=== PATIENT | female | born 1935 | race Caucasian/White ===

== ENCOUNTER 2017-05-24 09:01 | Inpatient (IN) | payer MEDICARE ==
[~2017-05-24] VITALS: Ht 157.5 cm; Wt 65.0 kg
[~2017-05-24 09:01] MED LIST: AMLODIPINE BESYL5 MG PO; ASPIRIN EC81 MG PO; BRIMONIDINE TART5 ML OP; BYSTOLIC10 MG PO; CALCIUM 500+D1 EACH PO; COQ-10100 MG PO; LEVOTHYROXINE50 MCG PO; LOSARTAN POTAS100 MG PO; MECLIZINE HCL25 MG PO; MULTI-VITAMIN1 EACH PO; POTASSIUM CHLO10 ME1 PO; POTASSIUM CHLO20 ME1 PO; TEMAZEPAM15 MG PO; Z.0.AMITRIPTYLINE H5; Z.0.CARTIA XT240 MG PO; Z.0.CRESTOR20 MG PO; Z.0.FOSAMAX70 MG PO
[2017-05-24] MEDS ORDERED: SODIUM CHLORIDE 0.9% 1000ML 1,000 ML IV STA ×2 (09:47→12:11)
[2017-05-24 10:20] LABS: BASOPHILS # (AUTO) 0.1 (0.0-0.1); BASOPHILS % 0.3 % (0.0-1.0); HEMATOCRIT 37.7 % (34.2-44.1); HEMOGLOBIN 12.2 g/dL (12.0-16.0); LYMPHOCYTES % 3.9 % (18.0-39.1); MEAN CORPUSCULAR HEMOGLOBIN 29.6 pg (28-32); MEAN CORPUSCULAR HGB CONC 32.4 g/dL (31-35); MEAN CORPUSCULAR VOLUME 91.5 fL (81-99); MONOCYTES # (AUTO) 2.4 (0.2-0.8); MONOCYTES % 9.2 % (4.4-11.3); NEUTROPHILS # (AUTO) 21.8 (2.1-6.9); NEUTROPHILS % 84.4 % (38.7-80.0); PLATELET COUNT 219 x10e3/uL (140-360); RED BLOOD COUNT 4.12 x10e6/uL (3.6-5.1); RED CELL DISTRIBUTION WIDTH 14.6 % (11.7-14.4)
[2017-05-24 10:21] LABS: BILIRUBIN,URINE NEGATIVE (NEGATIVE); KETONES,URINE NEGATIVE (NEGATIVE); LEUKOCYTE ESTERASE ,URINE NEGATIVE (NEGATIVE); NITRITE,URINE NEGATIVE (NEGATIVE); URINE UROBILINOGEN 0.2 mg/dL (0.2 - 1)
--- NOTE | 2017-05-24 10:24 | Diagnostic Imaging Report ---
PROCEDURE: A single AP view of the chest. COMPARISON: Chest 2 views 02/05/2017. INDICATIONS: URINARY TRACT INFECTION FINDINGS: Lines/tubes: None. Lungs: The lungs are well inflated and clear. There is no evidence of pneumonia or pulmonary edema. Pleura: There is no pleural effusion or pneumothorax. Heart and mediastinum: The heart and the mediastinum are unremarkable. Bones: No acute bony abnormality. Degenerative changes of the thoracic spine. IMPRESSION: No acute radiographic abnormality. Dictated by: Tucker Francis M.D. on 05/24/2017 at 10:31 Electronically approved by: Tucker Francis M.D. on 05/24/2017 at 10:31
[2017-05-24] MEDS ORDERED: SODIUM CHLORIDE 0.9% 1000ML 1,000 ML ONE (10:27)
[2017-05-24 10:39] LABS: ALBUMIN 3.3 g/dL (3.5-5.0); ANION GAP 14.7 mmol/L (8-16); CALCIUM 8.9 mg/dL (8.4-10.2); COLOR,URINE YELLOW (YELLOW); CREATININE, SERUM 2.46 mg/dL (0.57-1.11); POTASSIUM 3.7 mmol/L (3.5-5.1); PROTEIN,URINE DIPSTICK 1+ (NEGATIVE)
[2017-05-24 10:40] LABS: CLARITY,URINE SL CLOUDY (CLEAR)
[2017-05-24 10:46] LABS: BACTERIA,URINE RARE /HPF; EPITHELIAL CELLS,URINE RARE /LPF; RBC,URINE 0-5 /HPF (0-5)
[2017-05-24] MEDS ORDERED: MEROPENEM 1GM 100 ML IV STA (10:56)
[2017-05-24] MEDS ORDERED: ONDANSETRON HCL INJ 2 MG/ML VIAL IV PRN (11:00)
[2017-05-24 11:14] LABS: LYMPHOCYTES % (MANUAL) 2 % (19-48); METAMYELOCYTES % (MANUAL) 13 % (0-0); MONOCYTES % (MANUAL) 21 % (3.4-9.0); NEUTROPHILS % (MANUAL) 58 % (40-74)
[2017-05-24 11:16] LABS: PLATELET ESTIMATE ADEQUATE; PLATELET MORPHOLOGY COMMENT NORMAL; RBC MORPHOLOGY COMMENT NORMAL
[2017-05-24] MEDS ORDERED: AZOPT10 ML OU (13:31)
[2017-05-24] MEDS ORDERED: RIVASTIGMINE1.5 MG PO (13:31)
[2017-05-24] MEDS ORDERED: RANITIDINE HCL300 M1 PO (13:31)
[2017-05-24] MEDS: SODIUM CHLORIDE 0.9% 1000ML 1,000 ML IV SCH ×2 (13:45→20:01)
[2017-05-24 21:15] VITALS: BP 128/66
[2017-05-24] MEDS: LORAZEPAM INJ 2 MG/ML VIAL IV PRN (23:00)
[2017-05-24] MEDS: MEROPENEM 1GRAM 1 GM in SODIUM CHLORIDE 0.9% 100 ML 100 ML IV SCH (23:59)
[2017-05-25] VITALS (7 sets, daily range): BP systolic 104–133; BP diastolic 60–98
--- NOTE | 2017-05-25 01:16 | Pre Op History & Physical ---
CHIEF COMPLAINT: Dysuria and confusion. HISTORY OF PRESENTING ILLNESS: This is Ms. Phoebe Damon with a history of recurrent urinary tract infection, chronic kidney disease, hyperlipidemia, and history of stroke who was in usual state of health until 1 day prior to admission the patient started to have increased confusion and also started to have some fever and was brought into emergency room. Was checked for urine and was found to have urinary tract infection and urosepsis. The patient also had recurrent bouts of diarrhea when she came in. PAST MEDICAL HISTORY: History of recent diagnosis of dementia, history of hypothyroidism, history of hypertension, and history of major depressive disorder. MEDICATIONS: She takes at home are 1. Crestor 40 mg. 2. Levothyroxine 15 mcg. 3. Amitriptyline 50 mg once a day. 4. Ranitidine 300 mg at bedtime. 5. Exelon patch 4.6 mg per 24-hour patch. 6. Bactrim DS mg. 7. Bystolic 20 mg daily. 8. Losartan 100 mg. 9. Amlodipine 5 mg also. SURGICAL HISTORY: History of hysterectomy, bladder suspension and breast biopsy. MEDICAL HISTORY: Hypertension, arthritis, stroke, history of skin cancer, and history also of hyperlipidemia. FAMILY HISTORY: Father unknown, mother with stroke and heart attack. One brother, 5 sisters, all healthy at this time. SOCIAL HISTORY: Lives with her . No ETOH. No IV drug abuse and no smoking history either. REVIEW OF SYSTEMS: Negative for chest pain. No shortness of breath. Positive for diarrhea. No nausea or vomiting. No constipation or rectal bleeding. No hematochezia or hematemesis. Positive for dysuria and urinary symptoms of frequency. No diplopia, no blurry vision. No other focal neurological changes. PHYSICAL EXAMINATION GENERAL: The patient is alert at this time and oriented times 3. Very pleasant. HEENT: Normocephalic and atraumatic. Pupils are reactive to light and accommodation. CVS: S1 and S2 normal. Regular rate and rhythm. ABDOMEN: Nontender and nondistended. EXTREMITIES: Bilateral lower extremities with small patches of erythema surrounding with redness, pain, and tenderness, suggestive of cellulitis. LABS: Of note, lactic acid is 22.6. Her white count is 25.83 and urine was positive for leukocyte esterase and nitrites. ASSESSMENT: Urosepsis. The patient has been started on fluids at 125 mL an hour. Will keep the fluids going. Keep her white count and lactic acid checked. The patient has also been started on Merrem 1 g q.8 h. We will continue with that. Blood cultures and urine cultures have been done and we will restart all of her medications for hypothyroidism and follow hypertension. We will continue monitoring the patient. Further recommendations per clinical course. Job#: [id number] CF
[2017-05-25] MEDS: SODIUM CHLORIDE 0.9% 1000ML 1,000 ML IV SCH ×3 (04:09→21:09)
[2017-05-25] MEDS: MEROPENEM 1GRAM 1 GM in SODIUM CHLORIDE 0.9% 100 ML 100 ML IV SCH ×3 (05:54→21:15)
[2017-05-25] MEDS: LORAZEPAM INJ 2 MG/ML VIAL IV PRN (06:20)
[2017-05-25 07:14] LABS: BASOPHILS # (AUTO) 0.1 (0.0-0.1); BASOPHILS % 0.6 % (0.0-1.0); EOSINOPHILS # (AUTO) 0.2 (0.0-0.4); EOSINOPHILS % 1.6 % (0.0-6.0); HEMATOCRIT 36.4 % (34.2-44.1); HEMOGLOBIN 11.7 g/dL (12.0-16.0); LYMPHOCYTES % 8.1 % (18.0-39.1); MEAN CORPUSCULAR HEMOGLOBIN 29.8 pg (28-32); MEAN CORPUSCULAR HGB CONC 32.1 g/dL (31-35); MEAN CORPUSCULAR VOLUME 92.6 fL (81-99); MONOCYTES # (AUTO) 1.1 (0.2-0.8); MONOCYTES % 9.1 % (4.4-11.3); NEUTROPHILS # (AUTO) 9.8 (2.1-6.9); NEUTROPHILS % 78.5 % (38.7-80.0); PLATELET COUNT 162 x10e3/uL (140-360); RED BLOOD COUNT 3.93 x10e6/uL (3.6-5.1); RED CELL DISTRIBUTION WIDTH 14.7 % (11.7-14.4)
[2017-05-25 07:34] LABS: CALCIUM 8.2 mg/dL (8.4-10.2); CREATININE, SERUM 1.94 mg/dL (0.57-1.11)
--- NOTE | 2017-05-25 09:41 | Diagnostic Imaging Report ---
PROCEDURE:CHEST 2 VIEWS TECHNIQUE:Pressure chest 2 view INDICATION:Cough, colitis and sepsis COMPARISON:None. FINDINGS: Cardiomegaly with central vascular congestion. No pleural effusions. No focal airspace disease. Intact skeleton. Study limited by motion artifact and patient cooperation, particularly on the lateral view. CONCLUSION: Cardiomegaly with central vascular congestion. No definitive evidence of pneumonia. Dictated by: Sukhjinder Pearson M.D. on 05/25/2017 at 9:49 Electronically approved by: Sukhjinder Pearson M.D. on 05/25/2017 at 9:49
[2017-05-25] MEDS ORDERED: PROBIOTIC & AC1 EACH ×2 (15:15→15:16)
[2017-05-25] MEDS ORDERED: BYSTOLIC10 MG PO (15:15)
[2017-05-25] MEDS ORDERED: RIVASTIGMINE TRANSDERMAL 9.5MG/24HOURS PATCH TD SCH (21:00)
[2017-05-25] MEDS: ATORVASTATIN 40 MG TAB PO SCH (21:09)
[2017-05-25] MEDS: LACTOBACILLUS ACIDOPHILUS CAPSULE PO SCH (21:09)
[2017-05-26 00:09] VITALS: BP 127/77
[2017-05-26] MEDS ORDERED: MEROPENEM 1 GM VIAL ONE ×2 (05:20→14:21)
[2017-05-26 05:24] VITALS: BP 121/78
[2017-05-26] MEDS: SODIUM CHLORIDE 0.9% 1000ML 1,000 ML IV SCH ×2 (05:35→15:23)
[2017-05-26] MEDS ORDERED: SODIUM CHLORIDE 0.9% 100 ML 100 ML ONE (05:35)
[2017-05-26] MEDS: LEVOTHYROXINE SODIUM 50 MCG TAB PO SCH (05:36)
[2017-05-26] MEDS: MEROPENEM 1GRAM 1 GM in SODIUM CHLORIDE 0.9% 100 ML 100 ML IV SCH ×2 (05:36→15:23)
[2017-05-26 07:33] LABS: BASOPHILS # (AUTO) 0.1 (0.0-0.1); BASOPHILS % 0.4 % (0.0-1.0); EOSINOPHILS # (AUTO) 0.1 (0.0-0.4); EOSINOPHILS % 0.9 % (0.0-6.0); HEMATOCRIT 34.4 % (34.2-44.1); HEMOGLOBIN 10.8 g/dL (12.0-16.0); LYMPHOCYTES # (AUTO) 1.8 (1.0-3.2); LYMPHOCYTES % 12.7 % (18.0-39.1); MEAN CORPUSCULAR HGB CONC 31.4 g/dL (31-35); MEAN CORPUSCULAR VOLUME 92.2 fL (81-99); MONOCYTES # (AUTO) 1.6 (0.2-0.8); MONOCYTES % 11.3 % (4.4-11.3); NEUTROPHILS # (AUTO) 10.4 (2.1-6.9); NEUTROPHILS % 74.4 % (38.7-80.0); PLATELET COUNT 188 x10e3/uL (140-360); RED BLOOD COUNT 3.73 x10e6/uL (3.6-5.1)
[2017-05-26 08:05] LABS: ANION GAP 12.7 mmol/L (8-16); CALCIUM 7.6 mg/dL (8.4-10.2); CREATININE, SERUM 1.76 mg/dL (0.57-1.11); POTASSIUM 3.7 mmol/L (3.5-5.1)
[2017-05-26 08:06] VITALS: BP 131/94
[2017-05-26] MEDS: LOSARTAN POTASSIUM 100 MG TAB PO SCH (08:51)
[2017-05-26] MEDS: ASPIRIN 81 MG ENTERIC COATED PO SCH (08:51)
[2017-05-26] MEDS: METOPROLOL TARTRATE 25 MG TAB PO SCH ×2 (08:51→16:35)
[2017-05-26] MEDS: SUCRALFATE 1 GM TAB PO SCH ×3 (08:51→16:35)
[2017-05-26] MEDS: FAMOTIDINE 20 MG TAB PO SCH (08:52)
[2017-05-26] MEDS: CALCIUM CARBONATE 500 MG CHEWABLE TABS PO SCH ×2 (08:52→16:35)
[2017-05-26] MEDS: AMLODIPINE BESYLATE 5 MG TAB PO SCH (08:52)
[2017-05-26] MEDS: MULTIVITAMINS/MINERALS TAB PO SCH (08:52)
[2017-05-26] MEDS ORDERED: RIVASTIGMINE TARTRATE 1.5 MG CAP PO SCH (09:00)
[2017-05-26] MEDS ORDERED: NEBIVOLOL 10 MG TAB PO SCH (09:00)
[2017-05-26] MEDS ORDERED: LACTOBACILLUS ACIDOPHILUS CAPSULE PO SCH (09:00)
[2017-05-26] MEDS ORDERED: AMITRIPTYLINE HCL 25 MG TAB PO SCH (09:00)
[2017-05-26 10:57] LABS: BAND NEUTROPHILS % (MANUAL) 12 %; LYMPHOCYTES % (MANUAL) 14 % (19-48); MONOCYTES % (MANUAL) 6 % (3.4-9.0); NEUTROPHILS % (MANUAL) 68 % (40-74)
[2017-05-26 10:59] LABS: PLATELET ESTIMATE ADEQUATE; PLATELET MORPHOLOGY COMMENT NORMAL; RBC MORPHOLOGY COMMENT NORMAL
[2017-05-26 11:00] LABS: ANISOCYTOSIS SLIGHT; POIKILOCYTOSIS SLIGHT
[2017-05-26 12:12] VITALS: BP 159/84
[2017-05-26 16:10] VITALS: BP 127/71
[2017-05-26 20:00] VITALS: BP 159/70
[2017-05-26] MEDS: ATORVASTATIN 40 MG TAB PO SCH (20:05)
[2017-05-26] MEDS: AMITRIPTYLINE HCL 25 MG TAB PO SCH (20:05)
[2017-05-26] MEDS: RIVASTIGMINE TRANSDERMAL 9.5MG/24HOURS PATCH TD SCH (20:06)
[2017-05-26] MEDS: LACTOBACILLUS ACIDOPHILUS CAPSULE PO SCH (20:06)
[2017-05-26] MEDS: NEBIVOLOL 10 MG TAB PO SCH (20:06)
[2017-05-26] MEDS: MEROPENEM 1GRAM 1 GM in WATER STERILE 10ML VIAL 20 ML IV SCH (21:57)
[2017-05-27] VITALS: BP 167/77
[2017-05-27 04:00] VITALS: BP 139/74
[2017-05-27] MEDS: LEVOTHYROXINE SODIUM 50 MCG TAB PO SCH (05:45)
[2017-05-27 08:12] VITALS: BP 170/79
[2017-05-27] MEDS: FAMOTIDINE 20 MG TAB PO SCH (08:18)
[2017-05-27] MEDS: LOSARTAN POTASSIUM 100 MG TAB PO SCH (08:18)
[2017-05-27] MEDS: CALCIUM CARBONATE 500 MG CHEWABLE TABS PO SCH ×2 (08:18→17:22)
[2017-05-27] MEDS: METOPROLOL TARTRATE 25 MG TAB PO SCH ×2 (08:18→17:22)
[2017-05-27] MEDS: SUCRALFATE 1 GM TAB PO SCH ×3 (08:18→17:22)
[2017-05-27] MEDS: AMLODIPINE BESYLATE 5 MG TAB PO SCH (08:18)
[2017-05-27] MEDS: ASPIRIN 81 MG ENTERIC COATED PO SCH (08:18)
[2017-05-27] MEDS: MULTIVITAMINS/MINERALS TAB PO SCH (08:18)
[2017-05-27] MEDS: LACTOBACILLUS ACIDOPHILUS CAPSULE PO SCH ×3 (09:56→20:09)
[2017-05-27 12:03] VITALS: BP 176/73
[2017-05-27] MEDS: MEROPENEM 1GRAM 1 GM in WATER STERILE 10ML VIAL 20 ML IV SCH ×2 (13:34→20:23)
[2017-05-27] MEDS ORDERED: SODIUM CHLORIDE 0.9% 250ML 250 ML ONE (15:46)
[2017-05-27 16:00] VITALS: BP 179/78
[2017-05-27] MEDS ORDERED: MEROPENEM 1 GM VIAL ONE (20:08)
[2017-05-27] MEDS: AMITRIPTYLINE HCL 25 MG TAB PO SCH (20:09)
[2017-05-27] MEDS: RIVASTIGMINE TRANSDERMAL 9.5MG/24HOURS PATCH TD SCH (20:09)
[2017-05-27] MEDS: ATORVASTATIN 40 MG TAB PO SCH (20:09)
[2017-05-27] MEDS: NEBIVOLOL 10 MG TAB PO SCH (20:10)
[2017-05-27 20:32] VITALS: BP 181/94
[2017-05-28 00:45] VITALS: BP 159/71
[2017-05-28] MEDS ORDERED: MEROPENEM 1 GM VIAL ONE (05:23)
[2017-05-28] MEDS: MEROPENEM 1GRAM 1 GM in WATER STERILE 10ML VIAL 20 ML IV SCH ×3 (05:40→21:50)
[2017-05-28] MEDS: LEVOTHYROXINE SODIUM 50 MCG TAB PO SCH (05:40)
[2017-05-28 05:43] VITALS: BP 145/67
[2017-05-28 07:24] LABS: BASOPHILS # (AUTO) 0.1 (0.0-0.1); BASOPHILS % 0.8 % (0.0-1.0); EOSINOPHILS # (AUTO) 0.5 (0.0-0.4); EOSINOPHILS % 8.2 % (0.0-6.0); HEMATOCRIT 32.3 % (34.2-44.1); HEMOGLOBIN 10.7 g/dL (12.0-16.0); LYMPHOCYTES # (AUTO) 1.6 (1.0-3.2); LYMPHOCYTES % 24.9 % (18.0-39.1); MEAN CORPUSCULAR HGB CONC 33.1 g/dL (31-35); MEAN CORPUSCULAR VOLUME 87.5 fL (81-99); MONOCYTES # (AUTO) 0.9 (0.2-0.8); MONOCYTES % 14.1 % (4.4-11.3); NEUTROPHILS # (AUTO) 3.2 (2.1-6.9); NEUTROPHILS % 50.3 % (38.7-80.0); PLATELET COUNT 215 x10e3/uL (140-360); RED BLOOD COUNT 3.69 x10e6/uL (3.6-5.1); RED CELL DISTRIBUTION WIDTH 14.3 % (11.7-14.4)
[2017-05-28 07:40] LABS: ANION GAP 11.6 mmol/L (8-16); CALCIUM 8.8 mg/dL (8.4-10.2); CREATININE, SERUM 1.16 mg/dL (0.57-1.11)
[2017-05-28 07:42] LABS: POTASSIUM 2.6 mmol/L (3.5-5.1)
[2017-05-28 07:53] VITALS: BP 194/88
[2017-05-28] MEDS ORDERED: POTASSIUM CHLORIDE 20 MEQ TAB CR PO STA (08:26)
[2017-05-28] MEDS ORDERED: POTASSIUM CHLORIDE 20MEQ/100ML 200 ML IV ONE ×2 (08:30→12:30)
[2017-05-28] MEDS: SUCRALFATE 1 GM TAB PO SCH ×3 (08:36→16:30)
[2017-05-28] MEDS: ASPIRIN 81 MG ENTERIC COATED PO SCH (09:18)
[2017-05-28] MEDS: CALCIUM CARBONATE 500 MG CHEWABLE TABS PO SCH ×2 (09:19→17:39)
[2017-05-28] MEDS: LOSARTAN POTASSIUM 100 MG TAB PO SCH (09:19)
[2017-05-28] MEDS: METOPROLOL TARTRATE 25 MG TAB PO SCH ×2 (09:19→17:00)
[2017-05-28] MEDS: FAMOTIDINE 20 MG TAB PO SCH (09:19)
[2017-05-28] MEDS: LACTOBACILLUS ACIDOPHILUS CAPSULE PO SCH ×3 (09:19→21:50)
[2017-05-28] MEDS: AMLODIPINE BESYLATE 5 MG TAB PO SCH (09:19)
[2017-05-28] MEDS: MULTIVITAMINS/MINERALS TAB PO SCH (09:19)
[2017-05-28 11:32] LABS: BILIRUBIN,URINE NEGATIVE (NEGATIVE); KETONES,URINE NEGATIVE (NEGATIVE); LEUKOCYTE ESTERASE ,URINE NEGATIVE (NEGATIVE); NITRITE,URINE NEGATIVE (NEGATIVE); URINE UROBILINOGEN 0.2 mg/dL (0.2 - 1)
[2017-05-28 11:40] LABS: CLARITY,URINE SL CLOUDY (CLEAR); COLOR,URINE YELLOW (YELLOW); PROTEIN,URINE DIPSTICK 1+ (NEGATIVE)
[2017-05-28 11:46] LABS: EPITHELIAL CELLS,URINE RARE /LPF; RBC,URINE 0-5 /HPF (0-5)
[2017-05-28 11:48] VITALS: BP 161/74
[2017-05-28] MEDS ORDERED: POTASSIUM CHLORIDE 20 MEQ TAB CR PO SCH (12:30)
[2017-05-28] MEDS ORDERED: SODIUM CHLORIDE 0.9% 250ML 250 ML ONE (12:49)
[2017-05-28 16:29] VITALS: BP 172/73
[2017-05-28 20:00] VITALS: BP 169/77
[2017-05-28] MEDS: AMITRIPTYLINE HCL 25 MG TAB PO SCH (21:50)
[2017-05-28] MEDS: NEBIVOLOL 10 MG TAB PO SCH (21:50)
[2017-05-28] MEDS: RIVASTIGMINE TRANSDERMAL 9.5MG/24HOURS PATCH TD SCH (21:50)
[2017-05-28] MEDS: ATORVASTATIN 40 MG TAB PO SCH (21:50)
[2017-05-29] VITALS: BP 178/83
[2017-05-29 04:00] VITALS: BP 180/82
[2017-05-29] MEDS ORDERED: MEROPENEM 1 GM VIAL ONE (06:19)
[2017-05-29] MEDS: LEVOTHYROXINE SODIUM 50 MCG TAB PO SCH (06:35)
[2017-05-29] MEDS: MEROPENEM 1GRAM 1 GM in WATER STERILE 10ML VIAL 20 ML IV SCH (06:35)
[2017-05-29 07:08] LABS: BASOPHILS # (AUTO) 0.1 (0.0-0.1); BASOPHILS % 0.9 % (0.0-1.0); EOSINOPHILS # (AUTO) 0.4 (0.0-0.4); EOSINOPHILS % 6.2 % (0.0-6.0); HEMATOCRIT 34.4 % (34.2-44.1); HEMOGLOBIN 11.7 g/dL (12.0-16.0); LYMPHOCYTES # (AUTO) 2.1 (1.0-3.2); LYMPHOCYTES % 29.9 % (18.0-39.1); MEAN CORPUSCULAR HEMOGLOBIN 29.3 pg (28-32); MONOCYTES % 13.8 % (4.4-11.3); NEUTROPHILS # (AUTO) 3.3 (2.1-6.9); NEUTROPHILS % 47.2 % (38.7-80.0); PLATELET COUNT 243 x10e3/uL (140-360); RED CELL DISTRIBUTION WIDTH 14.1 % (11.7-14.4)
[2017-05-29] MEDS: SUCRALFATE 1 GM TAB PO SCH (08:10)
[2017-05-29 08:20] VITALS: BP 187/75
[2017-05-29 08:32] LABS: BAND NEUTROPHILS % (MANUAL) 1 %; EOSINOPHILS % (MANUAL) 5 % (0-7); LYMPHOCYTES % (MANUAL) 22 % (19-48); MONOCYTES % (MANUAL) 19 % (3.4-9.0); NEUTROPHILS % (MANUAL) 51 % (40-74)
[2017-05-29 08:34] LABS: ANISOCYTOSIS SLIGHT; PLATELET ESTIMATE ADEQUATE; PLATELET MORPHOLOGY COMMENT FEW LARGE; RBC MORPHOLOGY COMMENT NORMAL
[2017-05-29] MEDS: ASPIRIN 81 MG ENTERIC COATED PO SCH (09:21)
[2017-05-29] MEDS: MULTIVITAMINS/MINERALS TAB PO SCH (09:22)
[2017-05-29] MEDS: LOSARTAN POTASSIUM 100 MG TAB PO SCH (09:22)
[2017-05-29] MEDS: METOPROLOL TARTRATE 25 MG TAB PO SCH (09:22)
[2017-05-29] MEDS: LACTOBACILLUS ACIDOPHILUS CAPSULE PO SCH (09:22)
[2017-05-29] MEDS: AMLODIPINE BESYLATE 5 MG TAB PO SCH (09:22)
[2017-05-29] MEDS: CALCIUM CARBONATE 500 MG CHEWABLE TABS PO SCH (09:22)
[2017-05-29] MEDS: FAMOTIDINE 20 MG TAB PO SCH (09:22)
[2017-05-29] MEDS ORDERED: CARAFATE1 GM/10 ML PO (10:48)
--- NOTE | 2017-07-08 16:11 | Discharge Summary ---
This patient came to the hospital for delirium. She was found to have urosepsis and hypertension that was controlled. The patient was started on antihypertensives and started on Merrem. Blood cultures and urine culture were done. CBC and CMP were done on a regular basis. Cultures were negative, but the patient had received home antibiotics. We continued the patient on Merrem. She was feeling much better. We started her back on her home medication for dementia, which was rivastigmine. The patient's urosepsis resolved. Physical therapy was ordered. She got out of bed. When she was more stable with better cognitive response, the patient was discharged home. FINAL DIAGNOSES 1. Urinary tract infection and sepsis. 2. Delirium. 3. Hypertension. 4. Dementia. For further information, look in the chart. For medicines on discharge, look on the medical reconciliation sheet. TAMIA SERRANO MD Job#: [id number]
== END 2017-05-29 11:35 | disposition home or self-care (01) | DRG 872 ==
LOC: ER 09:01 → ERHOLD 11:41 → MED/SURG3 20:04
PROVIDERS: ADMIT Family Medicine; ATTEND Family Medicine
DX: A41.9 Sepsis, unspecified organism (principal); F03.90 Unspecified dementia, unspecified severity, without behavioral disturbance, psychotic disturbance, mood disturbance, and anxiety; N39.0 Urinary tract infection, site not specified; L03.116 Cellulitis of left lower limb; L03.115 Cellulitis of right lower limb; E03.9 Hypothyroidism, unspecified; F32.9 Major depressive disorder, single episode, unspecified; R53.81 Other malaise; Z86.73 Personal history of transient ischemic attack (TIA), and cerebral infarction without residual deficits; R19.7 Diarrhea, unspecified
CPT/HCPCS: 36415; 71010; 71020; 80048; 80053; 81001; 83605; 85025; 87040; 87045; 87086; 93005; 96360; 96361; 99284; J2060; J2185; J3480; J7030; J7050

== ENCOUNTER 2018-05-31 06:58 | Inpatient (IN) | payer MEDICARE ==
[~2018-05-31] VITALS: Ht 157.5 cm; Wt 65.4 kg
[~2018-05-31 06:58] MED LIST changes: +AZOPT10 ML OU; +CARAFATE1 GM/10 ML PO; +PROBIOTIC & AC1 EACH; +RANITIDINE HCL300 M1 PO; +RIVASTIGMINE1.5 MG PO
--- OUTSIDE RECORDS SUMMARY | 2018-05-31 07:00 | XMS REPORT ---
Author Author [facility] Address Unknown Phone Unavailable Care Team Providers Care Railroad Car Checker Name Role Phone Carol SERRANO Unavailable Unavailable Problems This patient has no known problems. Allergies, Adverse Reactions, Alerts This patient has no known allergies or adverse reactions. Medications This patient has no known medications. Results Test Description Test Time Test Comments Text Results Atomic Results Result Comments CHEST 2 VIEWS [place] [address] Patient Name: BRITTNEY DE PAZ MR #: [id number] : 1935 Age/Sex: 81/F Req #: [id number] Adm Physician: TAMIA SERRANO MD Ordered by: TAMIA SERRANO MD Report #: [id number] Location: [facility]SURG[facility] Room/Bed: [facility] Procedure: [id number] DX/CHEST 2 VIEWS Exam Date: 05/25/17 Exam Time: 0800 REPORT STATUS: Signed PROCEDURE: CHEST 2 VIEWS TECHNIQUE: Pressure chest 2 view INDICATION: Cough, colitis and sepsis COMPARISON: None. FINDINGS: Cardiomegaly with central vascular congestion. No pleural effusions. No focal airspace disease. Intact skeleton. Study limited by motion artifact and patient cooperation, particularly on the lateral view. CONCLUSION: Cardiomegaly with central vascular congestion. No definitive evidence of pneumonia. Dictated by: Maggie Pearson M.D. on 05/25/2017 at 9:49 Electronically approved by: Maggie Pearson M.D. on 05/25/2017 at 9:49 Dictated By: MAGGIE PEARSON MD 0949 Transcribed By: DAYTON on 05/25/17 0949 COPY TO: TAMIA SERRANO MD CHEST SINGLE (PORTABLE) [place] [address] Patient Name: BRITTNEY DE PAZ MR #: [id number] : 1935 Age/Sex: 81/F Req #: [id number] Adm Physician: Ordered by: ISAAC DELA CRUZ MD Report #: [id number] Location: ER Room/Bed: Procedure: [id number] DX/CHEST SINGLE (PORTABLE) Exam Date: 05/24/17 Exam Time: 0950 REPORT STATUS: Signed PROCEDURE: A single AP view of the chest. COMPARISON: Chest 2 views 02/05/2017. INDICATIONS: URINARY TRACT INFECTION FINDINGS: Lines/tubes: None. Lungs: The lungs are well inflated and clear. There is no evidence of pneumonia or pulmonary edema. Pleura: There is no pleural effusion or pneumothorax. Heart and mediastinum: The heart and the mediastinum are unremarkable. Bones: No acute bony abnormality. Degenerative changes of the thoracic spine. IMPRESSION: No acute radiographic abnormality. Dictated by: Corwin Dotson M.D. on 05/24/2017 at 10:31 Electronically approved by: Corwin Dotson M.D. on 05/24/2017 at 10:31 Dictated By: CORWIN DOTSON MD 1031 Transcribed By: DAYTON on 05/24/17 1031 COPY TO: ISAAC DELA CRUZ MD MRI BRAIN WO [facility] [address] [place] [address] Patient Name: BRITTNEY DE PAZ MR #: [id number] : 1935 [facility] 81[id number] Req #: [id number] Adm Physician: Ordered by: TAMIA SERRANO MD Report #: [id number] Location: MRI Room/Bed: Procedure: [id number] MRI/MRI BRAIN WO Exam Date: 03/23/17 Exam Time: 0830 REPORT STATUS: Signed Examination: MRI BRAIN WITHOUT CONTRAST History: Dizziness. Giddiness. Weakness. Lethargy. Comparison studies: Multiple head CTs with the most recent performed February 01, 2017 Technique: Sagittal T2; axial DWI, FLAIR, GRE or SWI, T1, Coronal FLAIR. Intravenous contrast: None Findings: Scalp: No abnormal signal. No masses. Bone marrow: Normal in signal intensity. Brain volume: Mild volume loss. Ventricles: No hydrocephalus. Extra-axial spaces: No abnormalities. Parenchyma: There are patchy and confluent areas of T2/FLAIR hyperintensity in the periventricular and subcortical and pontine white matter, nonspecific. No masses, hemorrhage, or acute cortical based vascular insults. 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 A chronic lacunar infarct is again demonstrated in the right inferolateral thalamus. Suprasellar and sellar region: No abnormalities. Craniocervical junction: No abnormalities. The foramen magnum is patent. No Chiari malformations. Vessels: Normal flow-voids in the arteries and sinuses. Additional findings:At least mild degenerative spinal canal stenosis at C2-C3 and C3-C4 due to disc bulge and ligamentum flavum thickening. IMPRESSION: 1. No new acute intracranial abnormality. No change from recent head CT performed February 01, 2017 when accounting for differences in technique. 2. Unchanged moderate chronic microvascular ischemic change. 3. Unchanged mild volume loss. 4. Unchanged chronic cortical based infarct in the left inferomedial cerebellum and chronic lacunar infarct in the right thalamus. Signed by: Dr. Michelle Jones M.D. on 03/23/2017 12:06 PM Dictated By: MICHELLE FERRELL MD 1206 Transcribed By: DIANNA on 03/23/17 1206 COPY TO: TAMIA SERRANO MD MRA NECK WO [place] [address] Patient Name: BRITTNEY DE PAZ MR #: [id number] : 1935 Age/Sex: 81/F Req #: [id number] Adm Physician: Ordered by: TAMIA SERRANO MD Report #: [id number] Location: MRI Room/Bed: Procedure: [id number] MRI/MRA NECK WO Exam Date: 03/23/17 Exam Time: 0830 REPORT STATUS: Signed EXAMINATION: MR angiogram of the Neck without contrast CLINICAL HISTORY: Dizziness. Giddiness. Weakness. Lethargy. COMPARISON: None available TECHNIQUE: A 2D [id number] TOF angiographic sequences without was performed on the neck . The source images and public utilities sales representative projections of the MIP images through 180 degrees of rotation of the neck were reviewed FINDINGS: If present, stenosis of the carotid bulbs is measured based on NASCET criteria i.e area of maximum stenosis compared to the cervical ICA distal to the bulb. Hypointensity in the bilateral carotid bulbs may be flow related artifact or narrowing from atherosclerotic disease with mild stenoses (less than 50% stenosis). Right Carotid Artery: The common carotid, internal and external carotid arteries at the level of the neck are normal in caliber, and patent, no evidence of stenoses. Left Carotid Artery: The common carotid, internal and external carotid arteries at the level of the neck are normal in caliber, and patent, no evidence of stenoses. Vertebral Arteries: Both are normal in morphology and caliber. Both are codominant. No significant stenosis is seen. IMPRESSION: Mild stenosis of the bilateral carotid bulbs, otherwise no abnormalities. Signed by: Dr. Bronwyn Caballero M.D. on 03/26/2017 11:54 AM Dictated By: BRONWYN CABALLERO MD 1150 Transcribed By: DIANNA on 03/26/17 6153 COPY TO: TAMIA SERRANO MD
--- OUTSIDE RECORDS SUMMARY | 2018-05-31 07:00 | XMS REPORT | Clinical Summary ---
Author Author [facility] Address Unknown Phone Unavailable Care Team Providers Care Dye House Hand Name Role Phone Scooter Slaughter MD PCP Allergies No Known Allergies Medications End Date Status Medication Sig Dispensed Refills Start Date Active amitriptyline (ELAVIL) 50 Take 50 mg by 0 MG tablet mouth every night as needed for Sleep. Active nebivolol (BYSTOLIC) 10 Take 20 mg by 0 MG tablet mouth daily. Active losartan-hydrochlorothiaz Take 1 tablet 0 tory (HYZAAR) 100-25 mg by mouth per tablet daily. Active levothyroxine (SYNTHROID, Take 50 mcg 0 LEVOTHROID) 50 MCG tablet by mouth Every morning on an empty stomach. Active potassium chloride Take 10 mEq 0 (KLOR-CON) 10 MEQ CR by mouth tablet daily. Active calcium carbonate-vitamin Take 1 tablet 0 D3 (CALCIUM-VITAMIN D) by mouth 2 500 mg(1,250mg) -200 unit (two) times per tablet daily with breakfast and dinner. Active aspirin 81 MG EC tablet Take 81 mg by 0 mouth daily. Active multivitamin per tablet Take 1 tablet 0 by mouth daily. Active brimonidine (ALPHAGAN P) 0 0.1 % Drop Active rosuvastatin (CRESTOR) 20 Take 2 30 tablet 0 05/17/201 MG tablet tablets (40 6 mg total) by mouth daily. Active Problems Problem Noted Date Cerebrovascular accident (CVA), unspecified mechanism 05/15/2016 Social History Date Tobacco Use Types Packs/Day Years Used Never Smoker Sex Assigned at Date Recorded Not on file Industry Job Start Date Occupation Not on file Not on file Not on file Travel End Travel History Travel Start No recent travel history available. Last Filed Vital Signs Not on file Plan of Treatment Not on file Results Not on fileafter 05/30/2017 Insurance Payer Benefit Subscriber ID Type Phone Address Plan / Group [employer]ETNA - MEDICARE [place] CARE [employer] xxxxxxxx [phone] [address] [place] [address] HMO POS PPO HU[employer] - MEDICARE MGD HUMANA xxxxxxxxx [facility] MEDICARE Contracted ADV Advance Directives For more information, please contact: [address] [address] Date Inactivated Comments Code Status Date Activated 05/17/2016 8:22 PM Full Code 05/16/2016 12:42 AM This code status was determined by: Patient
[2018-05-31 07:13] LABS: BASOPHILS % 0.4 % (0.0-1.0); EOSINOPHILS # (AUTO) 0.2 (0.0-0.4); EOSINOPHILS % 1.6 % (0.0-6.0); HEMATOCRIT 42.8 % (34.2-44.1); HEMOGLOBIN 14.3 g/dL (12.0-16.0); LYMPHOCYTES # (AUTO) 1.8 (1.0-3.2); MEAN CORPUSCULAR HEMOGLOBIN 30.3 pg (28-32); MEAN CORPUSCULAR HGB CONC 33.4 g/dL (31-35); MEAN CORPUSCULAR VOLUME 90.7 fL (81-99); MONOCYTES # (AUTO) 0.7 (0.2-0.8); MONOCYTES % 7.2 % (4.4-11.3); NEUTROPHILS # (AUTO) 7.1 (2.1-6.9); NEUTROPHILS % 72.5 % (38.7-80.0); PLATELET COUNT 194 x10e3/uL (140-360); RED BLOOD COUNT 4.72 x10e6/uL (3.6-5.1); RED CELL DISTRIBUTION WIDTH 13.2 % (11.7-14.4)
[2018-05-31] MEDS ORDERED: ASPIRIN 325 MG TAB PO ONE (07:15)
[2018-05-31 07:24] LABS: INR 0.79; PROTHROMBIN TIME 11.7 seconds (11.9-14.5)
[2018-05-31 07:25] LABS: PARTIAL THROMBOPLASTIN TIME 24.1 seconds (23.8-35.5)
[2018-05-31 07:33] LABS: ALANINE AMINOTRANSFERASE 23 IU/L (0-55); ALBUMIN 3.9 g/dL (3.5-5.0); ALBUMIN/GLOBULIN RATIO 1.2 (0.8-2.0); ALKALINE PHOSPHATASE 61 IU/L (40-150); ANION GAP 13.3 mmol/L (8-16); BLOOD UREA NITROGEN 21 mg/dL (7-26); BUN/CREATININE RATIO 13 (6-25); CALCIUM 9.6 mg/dL (8.4-10.2); CARBON DIOXIDE 25 mmol/L (22-29); CHLORIDE 108 mmol/L (98-107); CHOL/HDL RATIO 2.4 (3.0-3.6); CHOLESTEROL 158 MD/DL (0-199); EST GLOMERULAR FILTRATION RATE 31 ML/MIN (60-); GLUCOSE 123 mg/dL (74-118); HDL CHOLESTEROL 66 MG/DL (40-60); LDL CHOLESTEROL 76 MG/DL (60-130); POTASSIUM 3.3 mmol/L (3.5-5.1); SODIUM 143 mmol/L (136-145); TRIGLYCERIDES 80 MG/DL (0-149)
[2018-05-31 08:30] LABS: BILIRUBIN,URINE NEGATIVE (NEGATIVE); CLARITY,URINE CLOUDY (CLEAR); COLOR,URINE YELLOW (YELLOW); KETONES,URINE NEGATIVE (NEGATIVE); LEUKOCYTE ESTERASE ,URINE NEGATIVE (NEGATIVE); NITRITE,URINE NEGATIVE (NEGATIVE); PROTEIN,URINE DIPSTICK TRACE (NEGATIVE); URINE UROBILINOGEN 0.2 mg/dL (0.2 - 1)
[2018-05-31 08:41] LABS: AMORPHOUS SEDIMENT,URINE MODERATE (FEW); EPITHELIAL CELLS,URINE RARE /LPF
--- NOTE | 2018-05-31 08:44 | Diagnostic Imaging Report ---
CT BRAIN WO HISTORY: Left-sided numbness COMPARISON: Head CT 02/01/2017, MRI of the brain 03/23/2017 TECHNIQUE: Noncontrast axial scans were obtained from skull base to the vertex. Coronal and sagittal reconstructions obtained from the axial data. One or more of the following dose reduction techniques were used: Automated exposure control, adjustment of the mA and/or kV according to patient size, and/or utilization of iterative reconstruction technique. DISCUSSION: Scalp/Skull: Unremarkable. Brain sulci: Appropriate for patient's age. Ventricles: Normal in size and configuration. No hydrocephalus. Extra-axial spaces: No masses or fluid collections. Carotid siphon calcifications are present. Parenchyma: Mild periventricular white matter hypodensities are likely chronic microvascular ischemic changes. There is an old right thalamocapsular lacunar infarct. There is also an old left inferior cerebellar cortical infarct. 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 Otherwise, no hemorrhage, or large vascular territory acute infarct. Dural sinuses: No abnormal densities. Sellar/Suprasellar region: Intact. Skull base: Intact. Incidental findings: Both ocular lenses are thinned. IMPRESSION: 1. No acute intracranial abnormalities. 2. Mild supratentorial chronic microvascular ischemic change. 3. 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 4. Unchanged small pineal cyst. Signed by: Dr. Joe Dubon M.D. on 05/31/2018 8:41 AM
[2018-05-31 09:09] LABS: CLARITY,URINE SL CLOUDY (CLEAR); COLOR,URINE YELLOW (YELLOW)
[2018-05-31 09:10] LABS: BILIRUBIN,URINE NEGATIVE (NEGATIVE); KETONES,URINE NEGATIVE (NEGATIVE); LEUKOCYTE ESTERASE ,URINE NEGATIVE (NEGATIVE); NITRITE,URINE NEGATIVE (NEGATIVE); PROTEIN,URINE DIPSTICK TRACE (NEGATIVE); URINE UROBILINOGEN 0.2 mg/dL (0.2 - 1)
[2018-05-31] MEDS ORDERED: ONDANSETRON HCL INJ 2 MG/ML VIAL IV PRN (09:15)
[2018-05-31] MEDS ORDERED: SODIUM CHLORIDE FLUSH 10 ML SYR INJ PRN (09:15)
[2018-05-31 09:18] LABS: BACTERIA,URINE PRESENT /HPF; EPITHELIAL CELLS,URINE RARE /LPF
[2018-05-31 09:19] LABS: AMORPHOUS SEDIMENT,URINE FEW (FEW)
--- OUTSIDE RECORDS SUMMARY | 2018-05-31 09:21 | XMS REPORT | Clinical Summary ---
Author Author [facility] Address Unknown Phone Unavailable Care Team Providers Care Plant Protection Guard Name Role Phone Scooter Slaughter MD PCP [...] AETNA - MEDICARE MGD CARE [employer] xxxxxxxx [phone] [address] [place] [address] HMO POS PPO [employer] - MEDICARE MGD HUMANA xxxxxxxxx [facility] MEDICARE Contracted ADV Advance Directives For more information, please contact: [address] [address] Date Inactivated Comments Code Status Date Activated 05/17/2016 8:22 PM Full Code 05/16/2016 12:42 AM This code status was determined by: Patient
--- NOTE | 2018-05-31 11:03 | Diagnostic Imaging Report ---
MRI BRAIN WO HISTORY: Left-sided numbness COMPARISON: Head CT from earlier today, MRI of the brain 03/23/2017 TECHNIQUE: Sagittal T2, axial T2, axial T1, axial T2/FLAIR, axial gradient echo (or susceptibility weighted), coronal T2/FLAIR, and axial diffusion weighted MR images of the brain were obtained without contrast. DISCUSSION: Scalp/bone marrow: Unremarkable. Brain sulci: Mildly prominent. Ventricles: Mild compensatory dilatation. Extra-axial spaces: No masses or fluid collections. Parenchyma: Scattered T2/FLAIR hyperintense foci throughout the supratentorial white matter and moira are likely chronic microvascular ischemic changes. There is an old right thalamocapsular lacunar infarct. There is also an old left inferior cerebellar cortical infarct. There is an unchanged small pineal cyst. Otherwise, no mass, hemorrhage, or acute vascular insults. Vessels: Normal flow voids in major arteries and veins. Sellar/Suprasellar region: No abnormalities. Craniocervical junction: No abnormalities. Incidental findings: Both ocular lenses are thinned. IMPRESSION: 1. No acute intracranial abnormalities. 2. Moderate supratentorial/pontine chronic microvascular ischemic change. Mild generalized cerebral volume loss. 3. 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 4. Unchanged small pineal cyst. Signed by: Dr. Joe Dubon M.D. on 05/31/2018 10:59 AM
[2018-05-31 16:25] VITALS: BP 154/74
[2018-05-31 17:36] VITALS: BP 154/74
[2018-05-31 17:45] LABS: ANION GAP 14.3 mmol/L (8-16); CALCIUM 9.6 mg/dL (8.4-10.2); CREATININE, SERUM 1.46 mg/dL (0.57-1.11); POTASSIUM 3.3 mmol/L (3.5-5.1)
--- NOTE | 2018-05-31 18:42 | History and Physical ---
REASON FOR ADMISSION: This is an 82-year-old female who comes in with left lower extremity and upper extremity paresthesia. HISTORY OF PRESENT ILLNESS: This is Ms. Damon who has come on to the practice, was in her usual state of health until the day of admission. The patient woke up at 4 a.m. in the morning and had a nightmare and patient after that noted that she had left sided face, left arm, left hand, and leg tingling and hyperesthesia, no weakness notified. The patient continued to have the sensory disturbance and the patient came in the Emergency Room and is admitted for a TIA, rule out CVA. PAST MEDICAL HISTORY: History of depression, history of hypertension, history of chronic diarrhea, history of chronic UTI, history of reflux esophagitis too. The patient also has a history of dementia which she takes rivastigmine for. CVA in the past, has documented CVA with CT changes. MEDICATIONS AT HOME: Amitriptyline 50 mg, amlodipine 5 mg, aspirin 81 mg, Azopt for her glaucoma 1 mL one drop twice a day, levothyroxine 50 mcg, losartan 100 mg, nebivolol, Bystolic 10 mg, 300 mg, rivastigmine 9.5 mg daily, and Carafate 1 g twice a day. SURGICAL HISTORY: LASIK surgery, history of skin cancer removal, hysterectomy, and also bladder suspension. FAMILY HISTORY: Positive for sister with autoimmune disease and also son with depression, obsessive compulsive disorder associated with coronary artery disease too. SOCIAL HISTORY: Never a smoker, no ETOH, no IV drug use. 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 PHYSICAL EXAMINATION GENERAL: The patient is alert and oriented x3. VITAL SIGNS: At this time temperature 96.1, blood pressure is 157/74, and on arrival the patient's blood pressure is 170/71, pulse is 55, respirations of 18. HEENT: Normocephalic, atraumatic, pupils reactive to light and accommodation. CARDIOVASCULAR: S1 and S2 normal, regular rate and rhythm. ABDOMEN: Nontender, nondistended. EXTREMITIES: No clubbing, no cyanosis, no edema. NEUROLOGIC: Alert and oriented x3. No acute mental status changes. No cranial nerve deficits noted. No cerebellar signs. Normal reflexes and no posturing and pronator drift. The patient's NIHSS score was 1. IMAGING DATA: EKG showed nonspecific ST-T changes, otherwise normal. CT of the head has no lacunar infarct, which is old and no midline shift present. LABORATORY DATA: Shows white count of 9.74, hemoglobin 14.3 and hematocrit of 42.8. Chemistries show sodium of 143, potassium of 3.3, BUN is 21, creatinine 1.6, blood glucose of 123, HDL 66, and LDL is 76. Chemistry is normal. Urine is normal, slightly cloudy, coags were normal too. MRI was done. MRI of the brain shows no acute intracranial abnormalities, moderate and pontine chronic microvascular changes, old right thalamus capsular lacunar infarct and unchanged small pineal cyst. ASSESSMENT: Transient ischemic attack. PLAN: To continue monitor the patient. We will go ahead and do a carotid Doppler for the patient and also an echocardiogram. LDL has been done and also do a hemoglobin A1c further recommendations clinical course. We will continue monitor the patient and Dr. Corado has been consulted. Job#: [id number] SUB
[2018-05-31 20:20] VITALS: BP 167/79
[2018-05-31] MEDS ORDERED: CRESTOR 10MG PO SCH (21:00)
[2018-06-01] VITALS: BP 167/79
[2018-06-01 00:22] VITALS: BP 173/74
--- NOTE | 2018-06-01 01:40 | Consultation ---
DATE OF CONSULTATION: May 31, 2018 NEUROLOGY CONSULT NOTE HISTORY OF PRESENT ILLNESS: Ms. Damon is an 82-year-old right-hand dominant woman with past medical history significant for hypertension, hyperlipidemia, and a prior stroke without residual deficits, admitted to [facility] on May 31, 2018 with symptoms suspicious for a stroke. Ms. Damon awoke at approximately 0400 hours on the day of admission. Shortly after awakening, the patient noted numbness of the left hand up to the wrist. Shortly after this, the patient noted pain which was further described as tingling as well as numbness of the left foot. Ms. Damon reports a left-sided headache and numbness over the left side of the mouth as well. The patient does not report a visual field cut or other disturbance, dysarthria, aphasia, facial droop, hemiparesis, or confusion. She does report occasional dizziness, which she further describes as lightheadedness. She does report an unsteady gait, but this is chronic. Concerned she was having a stroke, the patient presented to the Emergency Center at [facility] for further evaluation. Upon admission to the Emergency Center, the patient was noted to have a markedly elevated blood pressure. At one point, her systolic blood pressure was over 200 mmHg. The patient's neurological examination was documented as being nonfocal, though the patient did report numbness and tingling over the left side of the mouth, left hand, and left foot. A CT of the brain without contrast was performed. This study did not reveal evidence of recent large territorial ischemia or hemorrhage. Ms. Damon was then admitted to [facility] for further evaluation and treatment of her symptoms. As stated above, the patient does report a history of a prior stroke without residual deficits. Ms. Damon remembers the stroke affected the left side of her body. Approximately 2 years ago, the patient was diagnosed with dementia, probably of the Alzheimer's type. Ms. Damon takes rivastigmine for treatment of her Alzheimer's disease. The patient reports tolerating this medication; however, she states she has experienced vivid dreams from the time she began treatment with rivastigmine. REVIEW OF SYSTEMS: Sweating, vivid dreams, numbness over the left side of the mouth, numbness of the left hand and left foot, headache, and dizziness which is further described as lightheadedness. PAST MEDICAL HISTORY: Hypertension, hyperlipidemia, thyroid disease, multiple urinary tract infections, prior history of peptic ulcer disease, a prior stroke without residual deficits, and dementia, probably of the Alzheimer's type. PAST SURGICAL HISTORY: Hysterectomy and bladder suspension, bilateral cataract removal. PAST HOSPITALIZATIONS: Surgeries/procedures as listed, colitis, urinary tract infections x2, and childbirth x3. FAMILY MEDICAL HISTORY: The patient's paternal and maternal grandparents are . Their medical histories are unknown. The patient's father is following exposure to a toxin. The patient's mother is from a stroke. She had coronary artery disease as well. Ms. Damon had 6 siblings, 1 brother and 5 sisters. The brother is from coronary artery disease. Three sisters are . All 3 sisters had heart disease. Two sisters are alive. Both have heart disease as well. Ms. Damon has 3 children, all sons, who are alive and healthy. SOCIAL HISTORY: The patient is . She is retired. Ms. Damon does not report current or prior tobacco, alcohol, or recreational drug use. HOME MEDICATIONS: Please see the list of home medications available in the electronic medical record. Crestor 20 mg by mouth at bedtime daily. ALLERGIES: CEPHALEXIN. NO KNOWN FOOD ALLERGIES. NO KNOWN ALLERGIES TO LATEX. NO KNOWN ALLERGIES TO IODINE OR OTHER CONTRAST MATERIALS. PHYSICAL EXAMINATION VITAL SIGNS: Height 62 inches, weight 140 pounds, BMI 25.7 kg per meter squared, blood pressure 154/74 mmHg, pulse 55 beats per minute, respiratory rate 18 breaths per minute, and oxygen saturation 98% on room air. GENERAL: The patient is awake and alert, does not appear distressed. HEENT: Normocephalic, atraumatic. Pupils are surgical. Moist mucous membranes. NECK: Supple. No appreciable thyromegaly. No appreciable carotid bruits. CARDIOVASCULAR: S1, S2 regular rate and rhythm. No murmurs, rubs, or gallops. RESPIRATORY: Clear to auscultation bilaterally. EXTREMITIES: Pulses are 2+ and symmetric. SKIN: No rashes or lesions. NEUROLOGIC: Memory/Attention: The patient is awake and alert, oriented to person, place, time, and situation. Cranial Nerves: Cranial nerve I-not tested. Cranial nerve II, III, IV, and -pupils are surgical. Extraocular movements intact. No nystagmus. Cranial nerve V-sensation to light touch and pinprick is diminished in the left V3 distribution. Strength of the temporalis and masseter muscles is within normal limits. Cranial nerve VII-the face is symmetric as are all facial movements. Strength is within normal limits. Cranial nerve VIII-hearing is diminished to finger rub on the left. Cranial nerve IX, X-the soft palate elevates equally and symmetrically. Cranial nerve XI-normal strength of the bilateral sternocleidomastoid and trapezius muscles. Cranial nerve XII-the tongue protrudes in midline and moves symmetrically from side to side. Strength: Bulk is normal. Strength is 5/5 in the bilateral deltoids, biceps, triceps, wrist flexors and extensors, finger flexors and extensors, intrinsic hand muscles, hip flexors, knee flexors and extensors, ankle dorsiflexion and plantar flexion, and intrinsic foot muscles. Tone is normal. DTRs: Deep tendon reflexes are 1+ and symmetric at the triceps, biceps, brachioradialis, and patellas. Deep tendon reflexes are absent and symmetric at the Achilles. Plantar responses are flexor bilaterally. Sensation: Sensation is intact to light touch and pinprick in both arms and both legs. Cerebellar: Qmaiom-djia-mgvzci and heel-mcnair movements are intact without dysmetria or other impairment. Gait: Deferred. Speech: Spontaneous speech is normal without appreciable dysarthria or aphasia. Repetition is intact. Involuntary Movements: None. Pronator Drift: None. LABORATORY DATA: The patient's comprehensive metabolic panel is significant for a low serum potassium of 3.3, an elevated chloride of 108, an elevated creatinine of 1.60 with an estimated GFR of 31, and an elevated serum glucose of 123. Hemoglobin A1c 5.0, total cholesterol 158, triglycerides 80, LDL cholesterol 76, and HDL cholesterol 66. The CBC with differential and platelets reveals a white blood cell count of 9.74 with a normal differential. The hemoglobin and hematocrit are 14.3 and 42.8, respectively. The platelet count is 194. PT is 11.7. INR is 0.79. PTT is 24.1. Urinalysis is significant for slightly cloudy urine with trace protein. DIAGNOSTIC STUDIES: Electrocardiogram on May 31, 2018: Sinus bradycardia at [address] of the brain without contrast on May 31, 2018: On my review, there is no evidence of recent large territorial ischemia, hemorrhage, mass, or mass effect. There is a remote right thalamic capsular lacunar infarct. There is a remote left inferior cerebellar cortical infarct. There are findings compatible with vgzj-ra-qvmnpgxo chronic small-vessel ischemic disease. Echocardiogram on May 31, 2018: Ejection fraction 60-65%. Zkoda-jd-qsnn tricuspid regurgitation. Mild aortic insufficiency. MRI of the brain without contrast on May 31, 2018: On my review, there is no evidence of recent large territorial ischemia, hemorrhage, mass, or mass effect. There is diffuse cerebral atrophy with compensatory dilatation of the ventricles, appropriate for the patient's age. A remote lacunar infarct is seen in the right thalamocapsular region. There is a remote left inferior cerebellar cortical infarct as well. There are scattered T2/FLAIR hyperintense foci throughout the supratentorial and infratentorial deep white matter compatible with moderate chronic small-vessel ischemic disease. ASSESSMENT AND PLAN: Ms. Damon is an 82-year-old right-hand dominant woman with multiple vascular risk factors who presented to [facility] with numbness and tingling over the left side of the mouth, left hand, and left foot in the setting of severe hypertension. Other than decreased sensation to light touch and pinprick over the left V3 distribution, Ms. Damon's neurological examination is nonfocal. The patient's laboratory data and other diagnostic studies have been reviewed and are documented above. In my opinion, Ms. Damon experienced recrudescence of prior deficits secondary to hypertensive emergency. RECOMMENDATIONS: As follows; 1. Ms. Adames blood pressure should be normalized. Her goal blood pressure is less than 140/90 mmHg. Treatment with aspirin and Crestor for stroke prophylaxis should be continued. 2. Ms. Damon has a reported history of dementia, probably of the Alzheimer's type. At present, the patient is taking rivastigmine for treatment of her Alzheimer's disease. During this encounter, Ms. Damon endorses vivid dreams, which are a known side effect of cholinesterase inhibitors. It is possible treatment with donepezil. In my experience, treatment with donepezil is less likely to cause vivid dreams. However, according to the patient's primary care physician, Dr. Scooter Slaughter, the patient experienced intolerable nausea and vomiting associated with taking donepezil. Therefore, continued treatment with rivastigmine is recommended. 3. Defer treatment of the remaining medical comorbidities to the primary and other services following the patient. Thank you for this consultation. There are no other recommendations from neurology service at this time. Time Spent: 70 minutes. Job#: [id number] PAULO LORD
[2018-06-01] MEDS ORDERED: LEVOTHYROXINE SODIUM 50 MCG TAB PO SCH (06:00)
[2018-06-01 06:09] LABS: HEMATOCRIT 39.6 % (34.2-44.1); HEMOGLOBIN 13.1 g/dL (12.0-16.0); LYMPHOCYTES % 24.4 % (18.0-39.1); MEAN CORPUSCULAR HEMOGLOBIN 30.2 pg (28-32); MEAN CORPUSCULAR HGB CONC 33.1 g/dL (31-35); MEAN CORPUSCULAR VOLUME 91.2 fL (81-99); NEUTROPHILS % 59.3 % (38.7-80.0); PLATELET COUNT 159 x10e3/uL (140-360); RED BLOOD COUNT 4.34 x10e6/uL (3.6-5.1); RED CELL DISTRIBUTION WIDTH 13.3 % (11.7-14.4)
[2018-06-01 06:10] LABS: BASOPHILS % 0.5 % (0.0-1.0); EOSINOPHILS # (AUTO) 0.3 (0.0-0.4); EOSINOPHILS % 3.6 % (0.0-6.0); LYMPHOCYTES # (AUTO) 1.9 (1.0-3.2); MONOCYTES # (AUTO) 0.9 (0.2-0.8); MONOCYTES % 11.7 % (4.4-11.3); NEUTROPHILS # (AUTO) 4.6 (2.1-6.9)
[2018-06-01 06:50] LABS: ANION GAP 13.5 mmol/L (8-16); CALCIUM 9.4 mg/dL (8.4-10.2); CREATININE, SERUM 1.57 mg/dL (0.57-1.11); MAGNESIUM 2.3 MG/DL (1.3-2.1); PHOSPHORUS 2.9 MG/DL (2.3-4.7); POTASSIUM 3.5 mmol/L (3.5-5.1)
[2018-06-01 07:24] LABS: THYROID STIMULATING HORMONE 1.052 uIU/mL (0.350-4.940)
[2018-06-01] MEDS ORDERED: SUCRALFATE 1 GM/10 ML SUSP PO SCH (09:00)
[2018-06-01] MEDS ORDERED: ASPIRIN 325 MG TAB EC PO SCH (09:00)
[2018-06-01] MEDS ORDERED: LOSARTAN POTASSIUM 100 MG TAB PO SCH (09:00)
[2018-06-01] MEDS ORDERED: AMLODIPINE BESYLATE 5 MG TAB PO SCH (09:00)
[2018-06-01] MEDS ORDERED: RIVASTIGMINE TRANSDERMAL 9.5MG/24HOURS PATCH TD SCH (09:00)
[2018-06-01] MEDS ORDERED: BRINZOLAMIDE 1% OPTH SUSP 10 ML BTL OU SCH (09:00)
[2018-06-01] MEDS ORDERED: ASPIRIN 81 MG ENTERIC COATED PO SCH (09:00)
[2018-06-01] MEDS ORDERED: NEBIVOLOL 10 MG TAB PO SCH (09:00)
[2018-06-01] MEDS ORDERED: MULTIVITAMINS/MINERALS TAB PO SCH (09:00)
[2018-06-01] MEDS ORDERED: RIVASTIGMINE TARTRATE 1.5 MG CAP PO SCH (09:00)
[2018-06-01] MEDS ORDERED: AMLODIPINE BESYL5 MG PO (09:03)
[2018-06-01 09:05] VITALS: BP 163/70
== END 2018-06-01 10:15 | disposition home or self-care (01) | DRG 305 ==
LOC: ER 06:58 → ERHOLD 09:18 → MED/SURG2 16:13
PROVIDERS: ADMIT Family Medicine; ATTEND Family Medicine
DX: I16.1 Hypertensive emergency (principal); I10 Essential (primary) hypertension; Z82.49 Family history of ischemic heart disease and other diseases of the circulatory system; E78.5 Hyperlipidemia, unspecified; I69.398 Other sequelae of cerebral infarction; R20.2 Paresthesia of skin; G30.9 Alzheimer's disease, unspecified; F02.80 Dementia in other diseases classified elsewhere, unspecified severity, without behavioral disturbance, psychotic disturbance, mood disturbance, and anxiety
CPT/HCPCS: 36415; 70450; 70551; 80048; 80053; 80061; 81001; 83036; 83735; 84100; 84436; 84443; 84479; 84484; 85025; 85610; 85730; 87086; 93005; 93306; 97139; 99284

== ENCOUNTER 2018-10-15 03:26 | Emergency (ER) | payer MEDICARE ==
[~2018-10-15] VITALS: Ht 157.5 cm; Wt 65.3 kg
--- OUTSIDE RECORDS SUMMARY | 2018-10-15 03:29 | XMS REPORT | Clinical Summary ---
Author Author SHAHEEN PollenSaint [facility]ph[facility] - [facility] NampaFindThatCourseB[facility] Address Unknown Phone Unavailable Care Team Providers Care Multiple Sclerosis Nurse Name Role Phone Scooter Slaughter MD PCP [...] Not on file Results Not on fileafter 10/14/2017 Insurance Payer Benefit Subscriber ID Type Phone Address Plan / Group AETNA - MEDICARE MGD CARE AETNA xxxxxxxx [phone] [address] [place] [address] HMO POS PPO HUMANA - MEDICARE MGD HUMANA xxxxxxxxx [facility] MEDICARE Contracted ADV Advance Directives For more information, please contact: [address] [address] Date Inactivated Comments Code Status Date Activated 05/17/2016 8:22 PM Full Code 05/16/2016 12:42 AM This code status was determined by: Patient
[2018-10-15] MEDS ORDERED: DILTIAZEM HCL 5 MG/ML 5 ML VIAL IV STA (04:10)
[2018-10-15 04:20] LABS: BASOPHILS % 0.3 % (0.0-1.0); EOSINOPHILS # (AUTO) 0.1 (0.0-0.4); EOSINOPHILS % 0.7 % (0.0-6.0); HEMATOCRIT 42.5 % (34.2-44.1); HEMOGLOBIN 13.6 g/dL (12.0-16.0); LYMPHOCYTES # (AUTO) 1.5 (1.0-3.2); LYMPHOCYTES % 11.9 % (18.0-39.1); MEAN CORPUSCULAR HEMOGLOBIN 30.2 pg (28-32); MEAN CORPUSCULAR VOLUME 94.4 fL (81-99); MONOCYTES # (AUTO) 0.8 (0.2-0.8); MONOCYTES % 6.3 % (4.4-11.3); NEUTROPHILS # (AUTO) 9.9 (2.1-6.9); NEUTROPHILS % 80.4 % (38.7-80.0); PLATELET COUNT 216 x10e3/uL (140-360); RED CELL DISTRIBUTION WIDTH 14.3 % (11.7-14.4)
[2018-10-15 04:30] LABS: INR 1.49; PROTHROMBIN TIME 18.6 seconds (11.9-14.5)
[2018-10-15 04:37] LABS: ALBUMIN 3.8 g/dL (3.5-5.0); ALBUMIN/GLOBULIN RATIO 1.2 (0.8-2.0); ANION GAP 13.2 mmol/L (8-16); CALCIUM 10.6 mg/dL (8.4-10.2); CREATININE, SERUM 1.68 mg/dL (0.57-1.11); POTASSIUM 4.2 mmol/L (3.5-5.1)
--- NOTE | 2018-10-15 04:53 | Diagnostic Imaging Report ---
EXAMINATION: CHEST SINGLE (PORTABLE) INDICATION: Chest pain. COMPARISON: None FINDINGS: TUBES and LINES: None. LUNGS: Lungs are mildly hypoinflated. Left basilar subsegmental atelectasis. There is no evidence of pneumonia or pulmonary edema. PLEURA: No pleural effusion or pneumothorax. HEART AND MEDIASTINUM: The cardiac silhouette is mildly to moderately enlarged. The thoracic uterus tortuous and calcified. BONES AND SOFT TISSUES: No acute osseous lesion. Soft tissues are unremarkable. UPPER ABDOMEN: No free air under the diaphragm. IMPRESSION: No acute thoracic abnormality. Signed by: Dr. Zoran Hull M.D. on 10/15/2018 4:49 AM
[2018-10-15 06:24] LABS: BILIRUBIN,URINE NEGATIVE (NEGATIVE); CLARITY,URINE CLEAR (CLEAR); COLOR,URINE YELLOW (YELLOW); KETONES,URINE NEGATIVE (NEGATIVE); LEUKOCYTE ESTERASE ,URINE NEGATIVE (NEGATIVE); NITRITE,URINE NEGATIVE (NEGATIVE); PROTEIN,URINE DIPSTICK NEGATIVE (NEGATIVE); URINE UROBILINOGEN 0.2 mg/dL (0.2 - 1)
[2018-10-15 06:48] VITALS: BP 128/63
[2018-10-15 06:50] LABS: BACTERIA,URINE RARE /HPF; EPITHELIAL CELLS,URINE FEW /LPF; WBC,URINE (MAN) 0-5 /HPF (0-5)
== END 2018-10-15 07:10 | disposition home or self-care (01) ==
LOC: ER 03:26
DX: R00.2 Palpitations (principal); I48.0 Paroxysmal atrial fibrillation
CPT/HCPCS: 36415; 71045; 80053; 81001; 82550; 82553; 83880; 84484; 85025; 85610; 85730; 93005; 99284

== ENCOUNTER 2018-11-28 20:02 | Observation (INO) | payer MEDICARE ==
[~2018-11-28] VITALS: Ht 157.5 cm; Wt 68.2 kg
--- OUTSIDE RECORDS SUMMARY | 2018-11-28 20:06 | XMS REPORT | Clinical Summary ---
Author Author SHAHEEN [facility] CorporationMin[facility] Hospital[facility] Address Unknown Phone Unavailable Care Team Providers Care Television Operator Name Role Phone Scooter Slaughter MD PCP [...] Not on file Results Not on fileafter 11/27/2017 Insurance Payer Benefit Subscriber ID Type Phone Address Plan / Group AETNA - MEDICARE MGD CARE [employer] xxxxxxxx [phone] [address] [place] [address] HMO POS PPO HUMANA - MEDICARE MGD HUMANA xxxxxxxxx [facility] MEDICARE Contracted ADV Advance Directives For more information, please contact: [address] [address] Date Inactivated Comments Code Status Date Activated 05/17/2016 8:22 PM Full Code 05/16/2016 12:42 AM This code status was determined by: Patient
[2018-11-28] MEDS ORDERED: ASPIRIN 81 MG CHEW TAB PO ONE (20:15)
[2018-11-28] MEDS ORDERED: SODIUM CHLORIDE 0.9% 1000ML 1,000 ML IV ONE (20:15)
[2018-11-28 20:31] LABS: BASOPHILS % 0.3 % (0.0-1.0); EOSINOPHILS # (AUTO) 0.2 (0.0-0.4); EOSINOPHILS % 1.7 % (0.0-6.0); HEMATOCRIT 43.5 % (34.2-44.1); HEMOGLOBIN 14.3 g/dL (12.0-16.0); LYMPHOCYTES # (AUTO) 2.2 (1.0-3.2); LYMPHOCYTES % 25.4 % (18.0-39.1); MEAN CORPUSCULAR HEMOGLOBIN 30.7 pg (28-32); MEAN CORPUSCULAR HGB CONC 32.9 g/dL (31-35); MEAN CORPUSCULAR VOLUME 93.3 fL (81-99); MONOCYTES # (AUTO) 1.1 (0.2-0.8); MONOCYTES % 12.6 % (4.4-11.3); NEUTROPHILS # (AUTO) 5.1 (2.1-6.9); NEUTROPHILS % 59.5 % (38.7-80.0); PLATELET COUNT 206 x10e3/uL (140-360); RED BLOOD COUNT 4.66 x10e6/uL (3.6-5.1); RED CELL DISTRIBUTION WIDTH 14.6 % (11.7-14.4)
[2018-11-28 20:38] LABS: BILIRUBIN,URINE NEGATIVE (NEGATIVE); CLARITY,URINE CLEAR (CLEAR); COLOR,URINE YELLOW (YELLOW); KETONES,URINE NEGATIVE (NEGATIVE); LEUKOCYTE ESTERASE ,URINE SMALL (NEGATIVE); NITRITE,URINE POSITIVE (NEGATIVE); PROTEIN,URINE DIPSTICK TRACE (NEGATIVE); URINE UROBILINOGEN 0.2 mg/dL (0.2 - 1)
[2018-11-28] MEDS ORDERED: METOPROLOL TARTRATE INJ 1 MG/ML VIAL IV ONE (20:45)
[2018-11-28] MEDS ORDERED: METOPROLOL TARTRATE INJ 1 MG/ML VIAL ONE (20:47)
--- NOTE | 2018-11-28 20:49 | Diagnostic Imaging Report ---
Examination: Single AP view of the chest. COMPARISON: None. INDICATION: Palpitations DISCUSSION: Lines/tubes: quality assurance monitor final. Lungs: The lungs are well inflated and clear. No pneumonia or pulmonary edema. Pleura: No pleural effusion or pneumothorax. Heart and mediastinum: Prominent heart size. Bones and soft tissues: No acute bony abnormalities. IMPRESSION: 1. No acute cardiopulmonary abnormalities. Signed by: Dr. Mychal Henriquez M.D. on 11/28/2018 8:46 PM
[2018-11-28 20:53] LABS: ALBUMIN 3.8 g/dL (3.5-5.0); ALBUMIN/GLOBULIN RATIO 1.3 (0.8-2.0); ANION GAP 13.2 mmol/L (8-16); CALCIUM 10.1 mg/dL (8.4-10.2); CREATININE, SERUM 1.98 mg/dL (0.57-1.11); INR 1.93; POTASSIUM 4.2 mmol/L (3.5-5.1); PROTHROMBIN TIME 22.7 seconds (11.9-14.5)
[2018-11-28 20:54] LABS: PARTIAL THROMBOPLASTIN TIME 39.5 seconds (23.8-35.5)
[2018-11-28] MEDS ORDERED: DIGOXIN INJ 0.25 MG/ML 2 ML AMP IV ONE (21:00)
[2018-11-28 21:01] LABS: CREATINE KINASE MB 2.3 ng/mL (0-5.0)
[2018-11-28 21:10] LABS: BACTERIA,URINE MODERATE /HPF; EPITHELIAL CELLS,URINE MODERATE /LPF; MUCUS,URINE FEW (RARE); WBC,URINE (MAN) >50 /HPF (0-5)
[2018-11-28] MEDS ORDERED: XARELTO10 MG (21:19)
[2018-11-28] MEDS ORDERED: CRESTOR10 MG (21:19)
[2018-11-28] MEDS ORDERED: METOPROLOL SUCC50 MG PO (21:19)
--- OUTSIDE RECORDS SUMMARY | 2018-11-28 22:06 | XMS REPORT | Clinical Summary ---
Author Author SHAHEEN [facility]Bon[facility] Hospital[facility]omeAd[facility] Address Unknown Phone Unavailable Care Team Providers Care Garment Steamer Name Role Phone Scooter Slaughter MD PCP [...] AETNA - MEDICARE MGD CARE AETNA xxxxxxxx [phone] [address] [place] [phone] HMO POS PPO HUMANA - MEDICARE MGD HUMANA xxxxxxxxx [facility] MEDICARE Contracted ADV Advance Directives For more information, please contact: [address] [address] Date Inactivated Comments Code Status Date Activated 05/17/2016 8:22 PM Full Code 05/16/2016 12:42 AM This code status was determined by: Patient
[2018-11-28] MEDS: SODIUM CHLORIDE 0.9% 1000ML 1,000 ML IV SCH (22:32)
[2018-11-28] MEDS: LEVOFLOXACIN 500MG/D5W 100ML 100 ML IV SCH (22:32)
[2018-11-28 23:08] VITALS: BP 145/67
[2018-11-28 23:15] VITALS: BP 145/67
[2018-11-28 23:21] VITALS: BP 145/67
[2018-11-29 04:00] VITALS: BP 135/98
[2018-11-29] MEDS: LEVOTHYROXINE SODIUM 50 MCG TAB PO SCH (05:07)
[2018-11-29 05:10] LABS: BASOPHILS % 0.6 % (0.0-1.0); EOSINOPHILS # (AUTO) 0.1 (0.0-0.4); EOSINOPHILS % 1.9 % (0.0-6.0); HEMATOCRIT 37.7 % (34.2-44.1); HEMOGLOBIN 11.7 g/dL (12.0-16.0); LYMPHOCYTES # (AUTO) 1.9 (1.0-3.2); LYMPHOCYTES % 28.5 % (18.0-39.1); MEAN CORPUSCULAR HEMOGLOBIN 29.8 pg (28-32); MEAN CORPUSCULAR VOLUME 96.2 fL (81-99); MONOCYTES # (AUTO) 0.9 (0.2-0.8); MONOCYTES % 12.8 % (4.4-11.3); NEUTROPHILS # (AUTO) 3.8 (2.1-6.9); NEUTROPHILS % 55.8 % (38.7-80.0); PLATELET COUNT 142 x10e3/uL (140-360); RED BLOOD COUNT 3.92 x10e6/uL (3.6-5.1); RED CELL DISTRIBUTION WIDTH 14.5 % (11.7-14.4)
[2018-11-29 05:32] LABS: ALBUMIN 3.1 g/dL (3.5-5.0); ALBUMIN/GLOBULIN RATIO 1.4 (0.8-2.0); ANION GAP 7.7 mmol/L (8-16); CALCIUM 8.8 mg/dL (8.4-10.2); CREATININE, SERUM 1.73 mg/dL (0.57-1.11); POTASSIUM 4.7 mmol/L (3.5-5.1)
[2018-11-29 05:49] LABS: CREATINE KINASE MB 1.5 ng/mL (0-5.0)
--- NOTE | 2018-11-29 07:46 | History and Physical ---
An 83-year-old lady comes in with tachycardia and palpitations. HISTORY OF PRESENT ILLNESS: Ms. Phoebe Damon with a history of atrial fibrillation, was in usual state of health until the patient started to have high heart rate and palpitation and the patient has dementia. The patient's noted the heart rate to be in 120s and 130s. Extra metoprolol was given to the patient and dropped to the 60s for a couple of hours and the patient had another onset of tachycardia, called the answering service. The patient was asked to come to the emergency room, was found to be in junctional rhythm, admitted after IV metoprolol and now in sinus rhythm. The patient's casino worker is Dr. Lopez. The patient has a loop monitor and Cardiology was notified at that time. PAST MEDICAL HISTORY: History of CVA, history of TIA, history of dementia, history of hyperlipidemia, history of atrial fibrillation, history of reflux esophagitis, history of recurrent urinary tract infection, and history of hypertension. PAST SURGICAL HISTORY: History of hysterectomy, history of bladder suspension, history of recent colonoscopy. MEDICATIONS: As per medical reconciliation sheet. The patient is on Xarelto too. ALLERGIES: SEE NURSE'S NOTES. SOCIAL HISTORY: No EtOH. No IV drug abuse. History of dementia. 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 The patient's functional, can drive at times and has children living at home too. FAMILY HISTORY: Positive for dementia. Positive for coronary artery disease. Positive for hypertension. REVIEW OF SYSTEMS: Negative for chest pain. Positive for palpitation. No nausea, vomiting, or diarrhea. No constipation. No rectal bleeding. No hematochezia. No hematemesis. No blurry vision. No diplopia. Positive for palpitations. PHYSICAL EXAMINATION: GENERAL: The patient is alert and oriented x3. VITAL SIGNS: At this time, heart rate is 67, regular rate and rhythm, blood pressure is normalized. HEENT: Normocephalic, atraumatic. Pupils are reactive to light and accommodation. CVS: S1, S2 normal. Regular rate and rhythm. ABDOMEN: Nontender, nondistended. EXTREMITIES: No clubbing, no cyanosis, no edema. ABDOMEN: Has some suprapubic tenderness. NEUROLOGIC: Alert and oriented x3 at this time. No cranial deficits. No weakness and no sensory deficits noted. LABORATORY VALUE: On arrival, EKG, ventricular tachycardia with a junctional rhythm with normal P waves, abnormal p.r.n. intervals. The patient was given IV metoprolol and digoxin at that time. Chest x-ray no acute changes, x-ray was within normal limits. LABORATORY TESTS: CBC was normal. The patient's Chem panel was normal except for increased creatinine of 1.98. UA positive for moderate bacteria, 50 to 100 white count per field. ASSESSMENT: 1. Junctional rhythm, sinus tachycardia, history of atrial fibrillation. 2. Urinary tract infection. 3. Zkokl-sm-xeikvhb kidney injury. 4. History of dementia. 5. History of hypertension. 6. History of hyperlipidemia. At this time, we will continue with the metoprolol and digoxin. Cardiology consult has been done. The patient's cardiac enzymes have been normal. Chest x-ray is normal. We are awaiting cultures from lab of the urine. The patient is on Levaquin at this time. Plan is restart all home medications including Xarelto for atrial fibrillation. Consult Dr. Lopez of Cardiology and also we will continue with digoxin and the metoprolol. Further recommendation per clinical course. We will continue to monitor the patient and possible discharge in 1 to 2 days depending on Cardiology review and also depending on cultures from urine. MD SESAR Busch/MODL /[id number]
[2018-11-29] MEDS ORDERED: BRINZOLAMIDE 1% OPTH SUSP 10 ML BTL OU SCH (09:00)
[2018-11-29] MEDS ORDERED: RIVAROXABAN 10 MG TABLET PO SCH (09:00)
[2018-11-29] MEDS ORDERED: RIVASTIGMINE TARTRATE 1.5 MG CAP PO SCH (09:00)
[2018-11-29 10:05] VITALS: BP 151/65
[2018-11-29 11:51] VITALS: BP 138/65
[2018-11-29] MEDS: LOSARTAN POTASSIUM 100 MG TAB PO SCH (12:19)
[2018-11-29] MEDS: FAMOTIDINE 20 MG TAB PO SCH (12:19)
[2018-11-29] MEDS: AMITRIPTYLINE HCL 25 MG TAB PO SCH (12:19)
[2018-11-29] MEDS: MULTIVITAMINS/MINERALS TAB PO SCH (12:19)
[2018-11-29] MEDS: SODIUM CHLORIDE 0.9% 1000ML 1,000 ML IV SCH (12:19)
[2018-11-29] MEDS: AMLODIPINE BESYLATE 5 MG TAB PO SCH (12:19)
[2018-11-29] MEDS: METOPROLOL SUCCINATE 50 MG TAB XL PO SCH (12:19)
[2018-11-29] MEDS: CALCIUM CARBONATE 500 MG CHEWABLE TABS PO SCH ×2 (12:19→16:54)
[2018-11-29 12:38] VITALS: BP 138/65
[2018-11-29 13:59] LABS: CREATINE KINASE MB 1.4 ng/mL (0-5.0)
[2018-11-29 16:16] VITALS: BP 166/71
[2018-11-29] MEDS: BRINZOLAMIDE 1% OPTH SUSP 10 ML BTL OU SCH (16:54)
[2018-11-29 20:00] VITALS: BP 196/77
--- NOTE | 2018-11-29 20:15 | NUR ---
Received report from previous nurse, call-light within reach, patient resting in bed, no acute distress noted, in stable condition, will continue to monitor.
[2018-11-29] MEDS ORDERED: HYDRALAZINE HCL 20 MG/ML VIAL IV PRN (21:00)
[2018-11-29] MEDS ORDERED: LACTOBACILLUS ACIDOPHILUS CAPSULE PO SCH (21:00)
--- NOTE | 2018-11-29 21:00 | NUR ---
Patient noted with elevated zi=879/77 with P=64, secondary education professor physician Dr. Baez notified, received order for hydralazine 10mg IV as needed every 6 hours.
[2018-11-29] MEDS: LEVOFLOXACIN 500MG/D5W 100ML 100 ML IV SCH (21:25)
--- NOTE | 2018-11-29 22:19 | Consultation ---
DATE OF CONSULTATION: 11/29/2018 Cardiology Consult Note. REASON FOR CONSULT: Supraventricular tachycardia. CHIEF COMPLAINT: Palpitation. HISTORY OF PRESENT ILLNESS: The patient is an 83-year-old female with history of paroxysmal atrial fibrillation, who presented with complaint of palpitation and chest discomfort, says she was sleeping and woke her up from sleep. No chest pain. No shortness of breath. No syncope. No prior history of CAD or VA, currently converted to sinus rhythm. PAST MEDICAL HISTORY: 1. History of CVA. 2. History of TIA. 3. History of dementia. 4. History of hyperlipidemia. 5. Atrial fibrillation. 6. GERD. 7. Recurrent UTIs. 8. Hypertension. MEDICATIONS: Please see MAR for outpatient medications. ALLERGIES: PLEASE SEE MAR. SOCIAL HISTORY: The patient does not smoke, drink, or abuse drugs. FAMILY HISTORY: No family history of early CAD or sudden cardiac . REVIEW OF SYSTEMS: As per HPI, otherwise negative. PHYSICAL EXAMINATION: VITAL SIGNS: Temperature afebrile, pulse 67, respiratory rate 20, blood pressure 138/65, saturating 98% on room air. GENERAL: Elderly white female, well developed, well nourished. CARDIOVASCULAR: Regular rate and rhythm. No murmurs, rubs, or gallops. LUNGS: Clear to auscultation bilaterally. ABDOMEN: Soft, nontender, nondistended. NEURO and PSYCH: Alert and oriented to person, place, and time. Normal affect. INPATIENT MEDICATIONS: Reviewed. LABORATORY DATA: Reviewed. Notable for cardiac enzymes negative x3. BNP elevated to 1700. Creatinine of 1.98 on presentation, now down to 1.7 today. IMAGING DATA: Reviewed. Chest x-ray without any acute cardiopulmonary abnormalities. TELEMETRY DATA: Reviewed, shows SVT with heart rate of around 120-130, converted to sinus rhythm. Yesterday night, the patient has been sinus rhythm since then. ASSESSMENT: 1. Supraventricular tachycardia. 2. Hypertension. 3. Hyperlipidemia. 4. Chronic diastolic heart failure. 5. History of atrial fibrillation. PLAN: The patient converted to sinus rhythm. Continue metoprolol 50 mg daily. Can up titrate to 75 mg daily, blood pressure permits. BNP likely elevated due to tachycardia, appears euvolemic on exam. Chest x-ray is clear given LANNY. I would not administer further Lasix at this time. The patient has a followup with Sunday in clinic in place. Continue current cardiac medications. Okay to be discharged from cardiovascular standpoint with followup in clinic on Sunday. Thank you for this consult. We will continue to follow. MD PAMELA Ga/MODLiz /[id number]
[2018-11-30] VITALS: BP 166/73
[2018-11-30] MEDS: SODIUM CHLORIDE 0.9% 1000ML 1,000 ML IV SCH (01:30)
[2018-11-30 04:00] VITALS: BP 182/79
[2018-11-30] MEDS: LEVOTHYROXINE SODIUM 50 MCG TAB PO SCH (05:12)
[2018-11-30 07:29] VITALS: BP 144/84
--- NOTE | 2018-11-30 07:41 | NUR ---
PATIENT HAS DISCHARGE ORDER FROM DR. RICE, CALLED DR. RICE'S ANSWERING SERVICE TO REQUEST ORDER CLARIFICATION REGARDING PATIENT'S ADMITTING DIAGNOSIS OF OF ACCELERATED JUNCTIONAL BLOCK AND POSSIBLE NEED FRO ADJUSTMENT OF HER HOME PRESCRIPTION OF METOPROLOL TARTATE 25 MG Q12 NEEDED FOR HR >100 BPM.
[2018-11-30] MEDS ORDERED: METOPROLOL TART25 MG PO ×2 (08:05→08:15)
[2018-11-30] MEDS ORDERED: METOPROLOL SUCC50 MG PO (08:12)
[2018-11-30] MEDS: BRINZOLAMIDE 1% OPTH SUSP 10 ML BTL OU SCH (08:47)
[2018-11-30] MEDS: CALCIUM CARBONATE 500 MG CHEWABLE TABS PO SCH (08:50)
[2018-11-30] MEDS: MULTIVITAMINS/MINERALS TAB PO SCH (08:50)
[2018-11-30] MEDS: AMITRIPTYLINE HCL 25 MG TAB PO SCH (08:50)
[2018-11-30] MEDS: METOPROLOL SUCCINATE 50 MG TAB XL PO SCH (08:50)
[2018-11-30] MEDS: LOSARTAN POTASSIUM 100 MG TAB PO SCH (08:50)
[2018-11-30] MEDS: AMLODIPINE BESYLATE 5 MG TAB PO SCH (08:50)
[2018-11-30] MEDS: FAMOTIDINE 20 MG TAB PO SCH (08:50)
[2018-11-30 08:59] VITALS: BP 144/84
[2018-11-30] MEDS ORDERED: RIVAROXABAN 15 MG TABLET PO SCH (09:00)
[2018-11-30] MEDS ORDERED: RIVASTIGMINE PATCH 4.6MG/24 HOURS PATCH TD SCH (09:00)
[2018-11-30] MEDS ORDERED: LEVAQUIN500 MG PO (09:34)
== END 2018-11-30 09:56 | disposition home or self-care (01) ==
LOC: ER 20:02 → ERHOLD 22:04 → IMCU 22:44
PROVIDERS: ADMIT Family Medicine; ATTEND Family Medicine
DX: I47.1 Supraventricular tachycardia (principal); R00.2 Palpitations; N30.00 Acute cystitis without hematuria; Z86.73 Personal history of transient ischemic attack (TIA), and cerebral infarction without residual deficits; E03.9 Hypothyroidism, unspecified; K21.9 Gastro-esophageal reflux disease without esophagitis; F03.90 Unspecified dementia, unspecified severity, without behavioral disturbance, psychotic disturbance, mood disturbance, and anxiety; Z79.01 Long term (current) use of anticoagulants; Z88.8 Allergy status to other drugs, medicaments and biological substances; Z82.49 Family history of ischemic heart disease and other diseases of the circulatory system; N17.9 Acute kidney failure, unspecified; N18.9 Chronic kidney disease, unspecified; I48.0 Paroxysmal atrial fibrillation; E78.5 Hyperlipidemia, unspecified; I13.0 Hypertensive heart and chronic kidney disease with heart failure and stage 1 through stage 4 chronic kidney disease, or unspecified chronic kidney disease; I50.32 Chronic diastolic (congestive) heart failure; N18.3 Chronic kidney disease, stage 3 (moderate)
CPT/HCPCS: 36415 ×2; 71045; 80053 ×2; 81001; 82550 ×2; 82553 ×2; 83880; 84484 ×2; 85025 ×2; 85610; 85730; 87086; 93005; 99284; G0378 ×3; J0360; J1160; J1956 ×2; J7030 ×3

== ENCOUNTER → 2018-12-04 | Outpatient (CLI) | payer MEDICARE ==
[~2018-12-04] MED LIST changes: +CRESTOR10 MG; +LEVAQUIN500 MG PO; +METOPROLOL SUCC50 MG PO; +METOPROLOL TART25 MG PO; +XARELTO10 MG
--- NOTE | 2018-12-04 08:57 | Diagnostic Imaging Report ---
CT BRAIN WO HISTORY: Head trauma, concussion COMPARISON: MRI of the brain 05/31/[address] 05/31/2018 Technique: Noncontrast axial scans were obtained from skull base to the vertex. Coronal and sagittal reconstructions obtained from the axial data. One or more of the following dose reduction techniques were used: Automated exposure control, adjustment of the mA and/or kV according to patient size, and/or utilization of iterative reconstruction technique. DISCUSSION: Scalp/Skull: Unremarkable. Brain sulci: Mildly prominent. Ventricles: Compensatory dilatation. Extra-axial spaces: No masses or fluid collections. Carotid siphon calcifications are present. Parenchyma: Mild to moderate bilateral deep white matter hypodensity is likely chronic microvascular ischemic change. Old right thalamocapsular lacunar infarct and old left inferior cerebellar cortical infarct are again noted. 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 Otherwise, no hemorrhage, or large vascular territory acute infarct. Dural sinuses: No abnormal densities. Sellar/Suprasellar region: Intact. Skull base: Intact. Incidental findings: None. IMPRESSION: 1. No acute intracranial abnormalities. 2. Mild to moderate supratentorial chronic microvascular ischemic change. Mild generalized cerebral volume loss. 3. Old right thalamocapsular lacunar infarct and old left inferior cerebellar cortical infarct. 4. Unchanged small pineal cyst. Signed by: Dr. Joe Dubon M.D. on 12/04/2018 8:53 AM
--- NOTE | 2018-12-04 09:05 | Diagnostic Imaging Report ---
CT MAXIO FAC/PARANAS WO HISTORY: Fall COMPARISON: Concurrent head CT TECHNIQUE: Axial CT images through the face were obtained without contrast. Coronal/sagittal reformations were created. One or more of the following dose reduction techniques were used: Automated exposure control, adjustment of the mA and/or kV according to patient size, and/or utilization of iterative reconstruction technique. DISCUSSION: Minimally displaced fractures of the bilateral nasal bones, right greater than left, are associated with mild local soft tissue swelling. No additional acute fracture is seen. Advanced cervical spine degenerative changes are partially visualized. The orbits are intact. Both ocular lenses are thinned. Intraorbital contents are otherwise grossly unremarkable. The paranasal sinuses are clear. Small right thyroid lobe calcification is partially visualized. Air in the bilateral parotid ducts tracks into the bilateral parotid glands. IMPRESSION: 1. Minimally displaced bilateral nasal bone fractures, right greater than left. 2. No other acute osseous abnormalities in the face. Signed by: Dr. Joe Dubon M.D. on 12/04/2018 9:02 AM
== END ==
LOC: CT 07:45
PROVIDERS: ATTEND Internal Medicine Interventional Cardiology
DX: S02.2XXA Fracture of nasal bones, initial encounter for closed fracture (principal); S00.33XA Contusion of nose, initial encounter; S00.83XA Contusion of other part of head, initial encounter; Z86.73 Personal history of transient ischemic attack (TIA), and cerebral infarction without residual deficits
CPT/HCPCS: 70450; 70486

== ENCOUNTER → 2019-03-05 | Outpatient (CLI) | payer MEDICARE ==
--- NOTE | 2019-03-05 15:58 | Diagnostic Imaging Report ---
Examination: MRI BRAIN WITHOUT CONTRAST History: Alzheimer's disease , delusional, headaches Comparison studies: Most recent brain MRI 05/31/2018 Technique: Sagittal T2; axial DWI, FLAIR, GRE or SWI, T1, Coronal FLAIR. Findings: Scalp: No abnormal signal. No masses. Bone marrow: Normal in signal intensity. Brain volume: Mild volume loss. Ventricles: No hydrocephalus. Extra-axial spaces: No abnormalities. Unchanged tiny pineal region cyst. Parenchyma: There are patchy and confluent areas of T2/FLAIR hyperintensity in the periventricular and subcortical and pontine white matter, nonspecific. No masses, hemorrhage, or acute cortical based vascular insults. 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 A chronic lacunar infarct in the right thalamocapsular is unchanged. Suprasellar and sellar region: No abnormalities. Craniocervical junction: No abnormalities. The foramen magnum is patent. No Chiari malformations. Vessels: Normal flow-voids in the arteries and sinuses. Additional findings: At least mild degenerative spinal canal stenosis at C2-C3 and C3-C4 due to disc bulge and ligamentum flavum thickening. IMPRESSION: 1. No new acute intracranial abnormality, unchanged compared to MRI of 05/31/2018. 2. Stable moderate chronic microvascular ischemic change. 3. Unchanged mild volume loss. 4. Also unchanged chronic left cerebellar and right capsular lacunar infarct. Signed by: Dr. Erin Caballero M.D. on 03/05/2019 3:55 PM
== END ==
LOC: MRI 13:57
PROVIDERS: ATTEND Psychiatry & Neurology Clinical Neurophysiology
DX: G30.1 Alzheimer's disease with late onset (principal)
CPT/HCPCS: 70551

== ENCOUNTER 2020-05-18 06:37 | Emergency (ER) | payer MEDICARE ==
[~2020-05-18] VITALS: Ht 157.5 cm; Wt 68.0 kg
[2020-05-18 07:12] LABS: BASOPHILS # (AUTO) 0.1 (0.0-0.1); BASOPHILS % 0.9 % (0.0-1.0); EOSINOPHILS # (AUTO) 0.3 (0.0-0.4); EOSINOPHILS % 4.2 % (0.0-6.0); HEMATOCRIT 45.7 % (34.2-44.1); HEMOGLOBIN 14.5 g/dL (12.0-16.0); LYMPHOCYTES # (AUTO) 1.1 (1.0-3.2); LYMPHOCYTES % 14.7 % (18.0-39.1); MEAN CORPUSCULAR HEMOGLOBIN 30.1 pg (28-32); MEAN CORPUSCULAR HGB CONC 31.7 g/dL (31-35); MONOCYTES # (AUTO) 0.9 (0.2-0.8); MONOCYTES % 12.1 % (4.4-11.3); NEUTROPHILS # (AUTO) 5.3 (2.1-6.9); NEUTROPHILS % 67.8 % (38.7-80.0); PLATELET COUNT 196 x10e3/uL (140-360); RED BLOOD COUNT 4.81 x10e6/uL (3.6-5.1); RED CELL DISTRIBUTION WIDTH 12.9 % (11.7-14.4)
[2020-05-18 07:22] LABS: INR 0.95; PROTHROMBIN TIME 13.2 seconds (11.9-14.5)
[2020-05-18 07:23] LABS: PARTIAL THROMBOPLASTIN TIME 26.7 seconds (23.8-35.5)
[2020-05-18 07:29] LABS: ALBUMIN 3.8 g/dL (3.5-5.0); ALBUMIN/GLOBULIN RATIO 1.1 (0.8-2.0); ANION GAP 13.8 mmol/L (8-16); CALCIUM 9.1 mg/dL (8.4-10.2); CREATININE, SERUM 1.79 mg/dL (0.57-1.11); POTASSIUM 3.8 mmol/L (3.5-5.1)
[2020-05-18 07:35] LABS: CREATINE KINASE MB 1.4 ng/mL (0-5.0)
--- NOTE | 2020-05-18 07:49 | Diagnostic Imaging Report ---
CT BRAIN WO HISTORY: Tingling sensation to head and face COMPARISON: MRI of the brain on 1119 Technique: Noncontrast axial scans were obtained from skull base to the vertex. Coronal and sagittal reconstructions obtained from the axial data. One or more of the following dose reduction techniques were used: Automated exposure control, adjustment of the mA and/or kV according to patient size, and/or utilization of iterative reconstruction technique. DISCUSSION: Scalp/Skull: Unremarkable. Brain sulci: Mildly prominent. Ventricles: Compensatory dilatation. Extra-axial spaces: No masses or fluid collections. Carotid and vertebral artery calcifications are present. Parenchyma: Chronic left inferior cerebellar cortical infarct and right thalamocapsular lacunar infarct are unchanged. Moderate bilateral deep white matter hypodensity is likely chronic microvascular ischemic change. 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 Otherwise, no masses, hemorrhage, or large vascular territory acute infarct. Dural sinuses: No abnormal densities. Sellar/Suprasellar region: Intact. Skull base: Intact. Incidental findings: None. IMPRESSION: 1. No acute intracranial abnormalities. 2. Moderate supratentorial chronic microvascular ischemic change. Mild generalized cerebral volume loss. 3. 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 4. 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 Signed by: Dr. Joe Dubon M.D. on 05/18/2020 7:46 AM
--- NOTE | 2020-05-18 07:59 | Emergency Department Note ---
History of Present Illnes History of Present Illness Chief Complaint: General Medicine Complaints History of Present Illness This is a 84 year old female Patient in from home with complaints of "flushed" felling to her head and it went down to her face while she was laying in bed that started this morning that lasted a few seconds. Denies that symptoms are still happening. Patient believes she has had mini strokes in the past and was concerned. Patient denies feeling dizzy or light headed. Denies previous similar symptoms. No acute distress noted. Ambulatory without assistance with even, steady gait. No obvious neurological deficits noted. VSS. Historian: Patient Arrival Mode: Car Meter Maintenance Person Required: No Onset (how long ago): hour(s) (occurred ~1.5 hr ago when she awoke) Location: head/face Quality: "flushed" Radiation: Reports non-radiation Severity: mild Onset quality: sudden Timing of current episode: sporadic (lasted only seconds) Progression: resolved Chronicity: new Context: Denies recent illness Relieving factors: none Exacerbating factors: none Associated symptoms: Reports denies other symptoms Treatments prior to arrival: none Past Medical/Family History Physician Review I have reviewed the patient's past medical and family history. Any updates have been documented here. Past Medical History Recent Fever: No Clinical Suspicion of Infectio: No New/Unexplained Change in Ment: No Past Medical History: Hypertension, CVA, TIA, A-Fib, Hypothyroidism, GERD, Hyperlipedemia Other Medical History: HYPERCHOLESTEREMIA DEMENTIA Past Surgical History: Hysterectomy Other Surgery: BLADDER SUSPENSION Social History Smoking Cessation: Never Smoker Counseling Performed: No Alcohol Use: None Any Illegal Drug Use: No TB Exposure/Symptoms: No Physically hurt or threatened: No Other Last Tetanus: <10 YRS Any Pre-Existing Lines (PICC,: No Review of Systems Review of Systems Constitutional: Reports no symptoms EENTM: Reports no symptoms Cardiovascular: Reports no symptoms Respiratory: Reports no symptoms Gastrointestinal: Reports no symptoms Genitourinary: Reports no symptoms Musculoskeletal: Reports no symptoms Integumentary: Reports no symptoms Neurological: Reports as per HPI Psychological: Reports no symptoms Endocrine: Reports no symptoms Hematological/Lymphatic: Reports no symptoms Physical Exam Related Data Allergies: Coded Allergies: cephalexin (Verified Allergy, Unknown, HALLUCINATIONS, 10/15/18) Triage Vital Signs Vital Signs Date Time Temp Pulse Resp B/P (MAP) Pulse Ox O2 Delivery O2 Flow Rate FiO2 05/18/20 06:42 97.4 82 16 187/87 100 Room Air Vital signs reviewed: Yes Physical Exam CONSTITUTIONAL Constitutional: Present well-developed, Present well-nourished HENT HENT: Present normocephalic, Present atraumatic, Present oropharynx clear/moist, Present nose normal HENT L/R: Present left ext ear normal, Present right ext ear normal EYES Eyes: Reports PERRL, Reports conjunctivae normal NECK Neck: Present ROM normal PULMONARY Pulmonary: Present effort normal, Present breath sounds normal CARDIOVASCULAR Cardiovascular: Present regular rhythm, Present heart sounds normal, Present capillary refill normal, Present normal rate GASTROINTESTINAL Abdominal: Present soft, Present nontender, Present bowel sounds normal GENITOURINARY Genitourinary: Present exam deferred SKIN Skin: Present warm, Present dry MUSCULOSKELETAL Musculoskeletal: Present ROM normal NEUROLOGICAL Neurological: Present alert, Present oriented x 3, Present no gross motor or sensory deficits; Absent cranial nerve deficit, Absent sensory deficit, Absent abnormal gait, Absent weakness PSYCHOLOGICAL Psychological: Present mood/affect normal, Present judgement normal Results Laboratory Result Diagram: 05/18/20 0702 05/18/20 0702 Laboratory Laboratory Tests Test 05/18/20 07:02 White Blood Count 7.77 x10e3/uL (4.8-10.8) Red Blood Count 4.81 x10e6/uL (3.6-5.1) Hemoglobin 14.5 g/dL (12.0-16.0) Hematocrit 45.7 % (34.2-44.1) Mean Corpuscular Volume 95.0 fL (81-99) Mean Corpuscular Hemoglobin 30.1 pg (28-32) Mean Corpuscular Hemoglobin Concent 31.7 g/dL (31-35) Red Cell Distribution Width 12.9 % (11.7-14.4) Platelet Count 196 x10e3/uL (140-360) Neutrophils (%) (Auto) 67.8 % (38.7-80.0) Lymphocytes (%) (Auto) 14.7 % (18.0-39.1) Monocytes (%) (Auto) 12.1 % (4.4-11.3) Eosinophils (%) (Auto) 4.2 % (0.0-6.0) Basophils (%) (Auto) 0.9 % (0.0-1.0) Neutrophils # (Auto) 5.3 (2.1-6.9) Lymphocytes # (Auto) 1.1 (1.0-3.2) Monocytes # (Auto) 0.9 (0.2-0.8) Eosinophils # (Auto) 0.3 (0.0-0.4) Basophils # (Auto) 0.1 (0.0-0.1) Absolute Immature Granulocyte (auto 0.02 x10e3/uL (0-0.1) Prothrombin Time 13.2 seconds (11.9-14.5) Prothromb Time International Ratio 0.95 Activated Partial Thromboplast Time 26.7 seconds (23.8-35.5) Sodium Level 141 mmol/L (136-145) Potassium Level 3.8 mmol/L (3.5-5.1) Chloride Level 106 mmol/L (98-107) Carbon Dioxide Level 25 mmol/L (22-29) Anion Gap 13.8 mmol/L (8-16) Blood Urea Nitrogen 25 mg/dL (7-26) Creatinine 1.79 mg/dL (0.57-1.11) Estimat Glomerular Filtration Rate 27 ML/MIN (60-) BUN/Creatinine Ratio 14 (6-25) Glucose Level 96 mg/dL (74-118) Calcium Level 9.1 mg/dL (8.4-10.2) Total Bilirubin 0.6 mg/dL (0.2-1.2) Aspartate Amino Transf (AST/SGOT) 19 IU/L (5-34) Alanine Aminotransferase (ALT/SGPT) 15 IU/L (0-55) Alkaline Phosphatase 65 IU/L (40-150) Creatine Kinase 63 IU/L (29-168) Creatine Kinase MB 1.40 ng/mL (0-5.0) Troponin I 0.002 ng/mL (0-0.300) Total Protein 7.2 g/dL (6.5-8.1) Albumin 3.8 g/dL (3.5-5.0) Globulin 3.4 g/dL (2.3-3.5) Albumin/Globulin Ratio 1.1 (0.8-2.0) Lab results reviewed: Yes Imaging Imaging results reviewed: Yes Procedures 12 Lead ECG Interpretation ECG Interpretation : ECG: ECG 1 Meter Maintenance Person: Interpreted by ED physician Date: May 18, 2020 Time: 06:54 Rhythm: sinus rhythm Rate: normal BPM: 69 QRS axis: normal ST segments normal: Yes T waves normal: Yes Clinical Impression: normal ECG Assessment & Plan Medical Decision Making MDM pt c/o "flushed" feeling from top of head down through face, she is concerned about a stroke but has normal neuro exam although she is on Eliquis for h/o intermittent a-fib - check cbc, chem, ecg, cardiacs, CT brain - r/o cerebral bleed, electrolyte abnl, stemi/nstemi Reassessment Reassessment dc home, f/u PCP, RTED prn Assessment & Plan Final Impression: (1) Paresthesia Depart Disposition: HOME, SELF-CARE Last Vital Signs Date Time Temp Pulse Resp B/P (MAP) Pulse Ox O2 Delivery O2 Flow Rate FiO2 05/18/20 06:42 97.4 82 16 187/87 100 Room Air Home Meds Reported Medications Levofloxacin (LEVAQUIN) 500 Mg Tablet, 500 MG PO DAILY for 8 Days, TAB 11/30/18 Metoprolol Tartrate (METOPROLOL TARTRATE) 25 Mg Tablet, 25 MG PO Q12H PRN for heart rate >100 BPM, TAB 11/30/18 Metoprolol Succinate (METOPROLOL SUCCINATE) 50 Mg Tab.er.24h, 50 MG PO DAILY, MG 11/30/18 Rivaroxaban (XARELTO) 10 Mg Tablet, 15 MG 11/28/18 Rosuvastatin Calcium (CRESTOR) 10 Mg Tab, 40 MG THERAPEUTICALLY SUBSTITUTED WITH SIMVASTATIN 40MG 11/28/18 Lactobac Cmb #3/Fos/Pantethine (PROBIOTIC & ACIDOPHILUS CAP) 1 Each Capsule, HS 05/25/17 Brinzolamide (AZOPT) 10 Ml Susp, 1 DROP OU BID 05/24/17 Ranitidine Hcl (RANITIDINE HCL) 300 Mg Capsule, 300 MG PO DAILY 05/24/17 Rivastigmine Tartrate (RIVASTIGMINE) 1.5 Mg Capsule, 9.5 MG PO DAILY, #30 PATCH 05/24/17 Amlodipine Besylate (AMLODIPINE BESYLATE) 5 Mg Tablet, 10 MG PO DAILY, #30 TAB 02/05/17 Multivitamin (MULTI-VITAMIN DAILY) 1 Each Tablet, 1 TAB PO DAILY 05/01/16 Calcium Carbonate/Vitamin D3 (CALCIUM 500+D TABLET CHEW) 1 Each Tab.chew, 1 TAB PO BID 05/01/16 Levothyroxine Sodium (LEVOTHYROXINE SODIUM) 50 Mcg Tablet, 50 MCG PO QAM, #30 TAB 05/01/16 Losartan Potassium (LOSARTAN POTASSIUM) 100 Mg Tablet, 100 MG PO DAILY, TAB 05/01/16 Amitriptyline Hcl (Amitriptyline Hcl) 50 Mg Tablet, 50 MG DAILY 10/02/11 IRWIN AVILA MD May 18, 2020 07:59
[2020-05-18 08:27] VITALS: BP 156/96
--- OUTSIDE RECORDS SUMMARY | 2020-05-18 08:54 | XMS REPORT | Continuity of Care Document ---
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 Name Role Phone [employer] Unavailable Un available Problems Problem Status Onset Date Classification Date Reported Comments Source DUAL CHAMBER PACEMAKER IMPLANT Active 04/29/2019 [facility] SICK SINUS SYNDROME DUE TO SA NODE DYSFU Active 04/29/2019 [facility] Medications Medication Details Route Status Patient Instructions Ordering Provider Order Date Source Norvas Notes: (Same as: Norva sc) No Longer Active 05/15/2019 [facility] brinzolamide 10 MG/ML Ophthalmic Suspension [Azopt] 1 drp, Route: OPTH, BID, Drug form: SUSP, Start date: 05/15/19 9:00:00 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, Duration: 30 day, Stop date: 06/13/19 17:00:00 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 No Longer Active 05/15/2019 [facility] Losartan Notes: (Same as: Coza ar) No Longer Active 05/15/2019 [facility] 24 HR Metoprolol Tartrate 25 MG Extended Release Tablet [Toprol] Notes: (Same as: Toprol XL) Do Not Crush No Longer Active 05/15/2019 [facility] Trusopt Notes: Same as: Trusopt No Longer Active 05/15/2019 [facility] Synthroid Notes: Take 1 hour b efore or 2 hours after meal; Enteral feeds may interefere with the absorption of this medication.(Same as:Levothroid, Synthroid) No Longer Active 05/15/2019 [facility] Cefazolin Notes: (Same As: Anc ef, Kefzol) MEDICATION WASTE Product Size: 1000 mg Product Wasted: ___ mg Inactive 05/15/2019 [facility] donepezil Notes: (Same as: Gatito cept) No Longer Active 05/15/2019 [facility] rosuvastatin Notes: Same as Cr estor No Longer Active 05/15/2019 [facility] Ondansetron Notes: (Same as: Zoe robles) MEDICATION WASTE Product Size: 4 mg Product Wasted: ___ mg No Longer Active 05/15/2019 [facility] Morphine Notes: (Same as:MORPh ine Sulfate) No Longer Active 05/15/2019 [facility] Tramadol Notes: Not to exceed 400mg/day. (Same As: Ultram) No Longer Active 05/15/2019 [facility] Ambien Notes: (Same As: Ambien) No Longer Active 05/15/2019 [facility] Levothyroxine Sodium 0.05 MG Oral Tablet [Synthroid] 50 microgram = 1 tab, PO, Daily, # 30 tab, 0 Refill(s) Active 05/14/2019 [facility] 24 HR Metoprolol Tartrate 25 MG Extended Release Tablet [Toprol] 25 mg = 1 tab, PO, Daily, # 30 tab, 0 Re fill(s) No Longer Active 05/14/2019 [facility] Amlodipine 5 MG Oral Tablet [Norvasc] 5 mg = 1 tab, PO, Daily, # 30 tab, 0 Refill(s) Active 05/14/2019 [facility] brinzolamide 10 MG/ML Ophthalmic Suspension [Azopt] 1 drp, OPTH, BID, # 10 mL, 0 Refill(s) Active 05/14/2019 [facility] ranitidine 300 mg oral capsule 300 mg = 1 cap, PO, Daily, # 30 cap, 0 Refill(s) Active 05/14/2019 [facility] Colestipol Hydrochloride 1000 MG Oral Tablet See Instructions, 2 tab PO qam and 1 tab PO qpm, 0 Refill(s) Active 05/14/2019 [facility] rosuvastatin 40 mg oral tablet 40 mg = 1 tab, PO, Bedtime, # 90 tab, 3 Refill(s) Active 05/14/2019 [facility] amitriptyline 50 mg oral tablet 50 mg = 1 tab, PO, Bedtime, # 30 tab, 0 Refill(s) Active 05/14/2019 [facility] losartan 100 mg oral tablet 10 0 mg = 1 tab, PO, Daily, # 30 tab, 0 Refill(s) Active 05/14/2019 [facility] Eliquis 2.5 mg, PO, Q12H, 0 Re fill(s) Active 05/14/2019 [facility] donepezil 5 mg oral tablet 5 m g = 1 tab, PO, Bedtime, 0 Refill(s) Active 05/14/2019 [facility] latanoprost 0.05 MG/ML Ophthalmic Solution 1 drp, Each Affected Eye, Bedtime, # 1 btl, 1 Refill(s) Active 05/14/2019 [facility] Allergies, Adverse Reactions, Alerts No Known Medication Allergies Immunizations No Data Provided for This Section Results Order Name Results Value Reference Range Date Interpretation Comments Source ELECTROLYTES AGAP 9.8 10.0 - 20.0 05/14/2019 [facility] ELECTROLYTES Glucose Lvl 91 70 - 99 05/14/2019 [facility] ELECTROLYTES BUN 29 7 - 22 05/14/2019 [facility] ELECTROLYTES Creatinine Lvl 1.8 7 0.50 - 1.40 05/14/2019 [facility] ELECTROLYTES Sodium Lvl 142 135 - 145 05/14/2019 [facility] ELECTROLYTES Potassium Lvl 3.8 3.5 - 5.1 05/14/2019 [facility] ELECTROLYTES Chloride Lvl 111 95 - 109 05/14/2019 [facility] ELECTROLYTES CO2 25 24 - 32 05/14/2019 [facility] ELECTROLYTES Calcium Lvl 10.2 8.5 - 10.5 05/14/2019 [facility] ELECTROLYTES eGFR 25 05/14/2019 Result Comment: The eGFR is calculated using the CKD-EPI formula. In most young, healthy individuals the eGFR will be >90 mL/min/1.73m2. The eGFR declines with age. An eGFR of 60-89 may be normal in some populations, particularly the elderly, for whom the CKD-EPI formula has not been extensively validated. Use of the eGFR is not recommended in the following populations:

Individuals with unstable creatinine concentrations, including patients and those with serious co-morbid conditions.

Patients with extremes in muscle mass or diet.

The data above are obtained from the National Kidney Disease Education Program (NKDEP) which additionally recommends that when the eGFR is used in patients with extremes of body mass index for purposes of drug dosing, the eGFR should be multiplied by the estimated BMI. [facility] HEMATOLOGY Segs 73.5 45.0 - 75.0 05/14/2019 [facility] HEMATOLOGY Lymphocytes 12.3 20.0 - 40.0 05/14/2019 [facility] HEMATOLOGY Monocytes 10.5 2.0 - 12.0 05/14/2019 [facility] HEMATOLOGY Eosinophils 2.8 0.0 - 4.0 05/14/[address] [facility] Basophils 0.9 0.0 - 1.0 05/14/[address] [facility] Neutrophils # 4.9 1.5 - 8.1 05/14/[address] [facility] Lymphocytes # 0.8 1.0 - 5.5 05/14/[address] [facility] Monocytes # 0.7 0.0 - 0.8 05/14/2019 [facility] HEMATOLOGY Eosinophils # 0.2 0.0 - 0.5 05/14/[address] [facility] Basophils # 0.1 0.0 - 0.2 05/14/[address] [facility] PT 12.7 12.0 - 14.7 05/14/[address] [facility] PTT 22.2 22.9 - 35.8 05/14/[address] [facility] INR 0.97 0.85 - 1.17 05/14/[address] [facility] WBC 6.6 3.7 - 10.4 05/14/[address] [facility] RBC 3.78 4.20 - 5.40 05/14/[address] [facility] Hgb 12.1 12.0 - 16.0 05/14/[address] [facility] Hct 35.7 36.0 - 48.0 05/14/[address] [facility] MCV 94.3 80.0 - 98.0 05/14/[address] [facility] MCH 31.9 27.0 - 31.0 05/14/[address] [facility] MCHC 33.9 32.0 - 36.0 05/14/[address] [facility] RDW 14.1 11.5 - 14.5 05/14/[address] [facility] Platelet 200 133 - 450 05/14/[address] [facility] MPV 9.3 7.4 - 10.4 05/14/2019 [facility] Pathology Reports No Data Provided for This Section Diagnostic Reports Report Value Date Source Chest 2 views DX PROCEDURE INF ORMATION: Exam: XR Chest, 2 Views Exam date and time: 05/16/2019 8:30 AM Age: 83 years old Clinical history: Device placement; Additional info: Line placement/status post ppm/icd implantation TECHNIQUE: Imaging protocol: XR of the chest Views: 2 views. PA and Lateral COMPARISON: CHEST 1V FOR PLACEMENT DX 05/15/2019 4:42 PM FINDINGS: Lungs: There are normal lung volumes without consolidation or interstitial opacities. There is subsegmental atelectasis in the right upper lobe Pleural space: Unremarkable. No pleural effusion. No pneumothorax. Heart/Mediastinum: The cardiac silhouette is enlarged and the thoracic aorta is tortuous. There is stable convex density in the right paratracheal region likely representing tortuous brachiocephalic vessels. The mediastinal contour is normal. The trachea is midline. Bones/joints: No acute abnormality seen. IMPRESSION: Cardiomegaly with subsegmental atelectasis in the right upper lobe. Michael Brewer MD On 05/16/2019 08:51:03; [id number] 05/16/2019 [facility] 1 v for Placement DX PRO CEDURE INFORMATION: Exam: XR Chest, 1 View Exam date and time: 05/15/2019 4:42 PM Age: 83 years old Clinical history: Line placement/status post ppm/icd implantation TECHNIQUE: Imaging protocol: XR of the chest Views: 1 view. Portable AP view COMPARISON: CR CHEST 2 VIEWS DX 05/15/2019 7:41 AM FINDINGS: Tubes, catheters and devices: Left chest wall pacemaker with intact leads overlying right atrium and right ventricle. Lungs: No focal consolidation. Pleural space: No pleural effusion or pneumothorax. Heart/Mediastinum: The cardiac silhouette is borderline enlarged. Vasculature: Tortuous thoracic aorta with atherosclerotic calcifications. Bones/joints: Degenerative changes of the right shoulder with narrowing of the interval between the humerus and acromion. IMPRESSION: 1. Expected position of left chest wall pacemaker. No pneumothorax. 2. Degenerative changes of the right marcos ulder with findings which may be indicative of rotator cuff injury. Marcelo Bradley MD On 05/15/2019 17:15:25; [id number] 05/15/2019 [facility] 2 views DX PROCEDURE INF ORMATION: Exam: XR Chest, 2 Views Exam date and time: 05/15/2019 7:41 AM Age: 83 years old Clinical history: Device placement; Additional info: Line placement/status post ppm/icd implantation TECHNIQUE: Imaging protocol: XR of the chest Views: 2 views. PA and Lateral COMPARISON: CHEST 1V FOR PLACEMENT DX 05/14/2019 6:43 PM cannot be retrieved secondary to technical difficulties. FINDINGS: Lungs: Clear lungs without consolidation. Pleural space: Normal without pleural effusion or pneumothorax. Heart/Mediastinum: Mild cardiomegaly status post pacemaker with leads overlying the right atrium and right ventricle.. Bones/joints: No acute osseous abnormality. Other findings: Right paratracheal opacity likely represent artifact from the innominate vessels accentuated by patient rotation. IMPRESSION: 1. Mild cardiomegaly status post pacemak er. Collin Flynn MD On 05/15/2019 08:11:56; [id number] 05/15/2019 [facility] Chest 1 v for Placement DX PRO CEDURE INFORMATION: Exam: XR Chest, 1 View Exam date and time: 05/14/2019 6:43 PM Age: 83 years old Clinical history: Device placement; Cardiac pacemaker placement or adjustment; Additional info: Line placement/status post ppm/icd implantation TECHNIQUE: Imaging protocol: XR of the chest Views: 1 view. Portable AP view COMPARISON: No relevant prior studies available. FINDINGS: Tubes, catheters and devices: A dual-lead pacemaker is noted with leads terminating in the right atrium and ventricle. No break or dislodgment of leads is identified. Lungs: Mild obscuration of the left hemidiaphragm probably related to atelectasis. The right lung is clear. Pleural space: No pleural effusion. No pneumothorax. Heart/Mediastinum: Borderline cardiomegaly. Vasculature: The aorta is tortuous and demonstrates atherosclerotic calcifications. Bones/joints: No acute fracture. IMPRESSION: Pacemaker placement without complication. Mild atelectasis of the left lower lobe. Saleem Marshall MD On 05/14/2019 19:09:53; [id number] 05/14/2019 [facility] Consultation Notes No Data Provided for This Section Discharge Summaries No Data Provided for This Section History and Physicals No Data Provided for This Section Vital Signs Vital Sign Value Date Comments Source Heart Rate 77 05/16/2019 [facility] Respitory Rate 16 05/16/2019 [facility] Systolic (mm Hg) 160 05/16/2019 [facility] Diastolic (mm Hg) 71 05/16/2019 [facility] Temperature Oral (F) 97.7 F 05/16/2019 [facility] Heart Rate 71 05/16/2019 [facility] Respitory Rate 16 05/16/2019 [facility] Systolic (mm Hg) 160 05/16/2019 [facility] Diastolic (mm Hg) 106 05/16/2019 [facility] Temperature Oral (F) 98.0 F 05/16/2019 [facility] Heart Rate 75 05/16/2019 [facility] Respitory Rate 16 05/16/2019 [facility] Systolic (mm Hg) 165 05/16/2019 [facility] Diastolic (mm Hg) 71 05/16/2019 [facility] Temperature Oral (F) 97.7 F 05/16/2019 [facility] Height 157.48 cm 05/14/2019 [facility] Weight 66.364 05/14/2019 [facility] BMI Calculated 26.76 05/14/2019 [facility] Encounters Location Location Details Encounter Type Encounter Number Reason For Visit Attending Provider ADM Date DC Date Status Source [facility] Observation [id number] Rachid Lam 05/15/2019 05/16/2019 [facility] Procedures No Data Provided for This Section Assessment and Plan No Data Provided for This Section Plan of Care No Data Provided for This Section Social History Social History Date Source Social History TypeResponse Smoking Status Never smoker; Exposure to Tobacco Smoke None; Cigarette Smoking Last 365 Days No; Reg Smoking Cessation Counseling No entered on: 05/14/19 05/14/2019 [facility] Family History No Data Provided for This Section Advance Directives No Data Provided for This Section Functional Status No Data Provided for This Section
--- OUTSIDE RECORDS SUMMARY | 2020-05-18 08:54 | XMS REPORT | Clinical Summary ---
Author Author [facility] Address Unknown Phone Unavailable Care Team Providers Care Bond Writer Name Role Phone Scooter Slaughter MD PCP [phone] Allergies No Known Allergies Medications End Date [...] Use Types Packs/Day Years Used Never Smoker Smokeless Tobacco: Never Used Drinks/Week oz/Week Comments Alcohol Use Not Asked Sex Assigned at Date Recorded Not on file Last Filed Vital Signs Not on file Plan of Treatment Health Maintenance Due Date Last Done Comments PNEUMOCOCCAL 65+ YRS (1 2001 of 1 - [id number]) MEDICARE ANNUAL WELLNESS 06/26/2016 (YEAR 2 or FIRST YEAR if no IPPE) INFLUENZA VACCINE (#1) 2020 Results Not on fileafter 05/18/2019 Insurance Type Payer Benefit Subscriber ID Effective Phone Address Plan / Dates Group Maps Contracted [employer] - MEDICARE MGD [employer]NA [id number] 2017 -P CARE MEDICARE resent ADV [id number] Advance Directives For more information, please contact: [phone] Date Inactivated Comments Code Status Date Activated 05/17/2016 8:22 PM Full Code 05/16/2016 12:42 AM This code status was determined by: Patient
--- OUTSIDE RECORDS SUMMARY | 2020-05-18 08:55 | XMS REPORT | Continuity of Care Document ---
Author Author [facility] t Organization [facility] Address [address] [place] [address] Phone Unavailable Care Team Providers Care Metaphysician Name Role Phone Carol SERRANO MD PCP Tu AVILA Attphys Unavailable Amandeep Gaspar Attphys [phone] Joanie PALOMO Attphys Unavailable CORWIN ARRIAZA Attphys Unavailable MARGARITO OCAMPO Attphys Unavailable Liz SALAZAR Attphys Unavailable Carol DODGE Attphys Unavailable Carol SERRANO Attphys Unavailable Amandeep Gaspar Admphys Carol SERRANO Admphys Unavailable Payers Payer Name Policy Type Policy Number Effective Date Expiration Date S ource [employer] [id number] 2017 00:00:00 [facility] Problems Condition Name Condition Details Condition Category Status Onset Date Resolution Date Last Treatment Date Treating Clinician Comments Source DUAL CHAMBER PACEMAKER IMPLANT DUAL CHAMBER PACEMAKER IMPLANT Active 04/29/2019 [facility] Diagnosis Active 2019-04-29 00:00 :00 2019-05-15 13:45:00 Theodore Rizvi 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 Active 04/29/2019 [facility] Diagnosis Active 2019-04-29 00:00:00 2019-05-19 15:44:00 Joanie Rizvi Cerebrovascular accident (CVA), unspecified mechanism Cerebrovascular accident (CVA), unspecified mechanism Disease Active 2016-05-15 00:00:00 [facility] Colitis Colitis Problem Active [facility] Hypertensive emergency without congestive heart failur e Hypertensive emergency, no CHF Problem Active [facility] Sepsis Sepsis Problem Active [facility] Transient ischemic attack TIA (transient ischemic attack) Problem Active [facility] Accelerated atrioventricular junctional rhythm Accelerated j unctional rhythm Problem Active [facility] Urinary tract infection UTI (urinary tract infection) Problem Active [facility] Allergies, Adverse Reactions, Alerts Allergy Name Allergy Type Status Severity Reaction(s) Onset Date Inacti ve Date Treating Clinician Comments Source Cephalexin Allergy to Substance Active HALLUCINATIONS 2018-09-24 3 00:00:00 [facility] No Known Allergies DA Active U 2016-09-15 00:00:00 [facility] Social History Social Habit Start Date Stop Date Quantity Comments Source Sex Assigned At [facility] Tobacco use and exposure 2018-12-13 00:00:00 2018-12-13 00:00:00 Melissaradha r used [facility] Alcohol intake 2018-12-13 00:00:00 2018-12-13 00:00:00 [facility] Smoking Status Start Date Stop Date Source Social History [facility] Medications Ordered Medication Name Filled Medication Name Start Date Stop Da te Current Medication? Ordering Clinician Indication Dosage Frequency Signature (SIG) Comments Components Source Norvasc 2019-05-15 15:00:00 No Notes: (Same as: Sejal) [facility] brinzolamide 10 MG/ML Ophthalmic Suspension [Azopt] 2018-06 15:00:00 No 1 drp, Route: OP TH, BID, Drug form: SUSP, Start date: 05/15/19 9:00:00 CLOTHES WRINGER, Duration: 30 day, Stop date: 06/13/19 17:00:00 CLOTHES WRINGER Theodore Rizvi Losartan 2019-05-15 15:00:00 No Notes: (Fadi garcia as: Barbara) [facility] 24 HR Metoprolol Tartrate 25 MG Extended Release Tablet [Top rol] 2019-05-15 15:00:00 No Notes: (Same as: Toprol XL) D o Not Crush [facility] Dmitri Trusopt 2019-05-15 15:00:00 No Notes: Same as: Trusopt [facility] Synthroid 2019-05-15 12:30:00 No Notes: Take 1 hour before or 2 hours after meal; Enteral feeds may interefere with the absorption of this medication.(Same as:Levothroid, Synthroid) [facility] Cefazolin 2019-05-15 08:00:00 No Notes: (Same As: Ancef, Kefzol) MEDICATION WASTE Product Size: 1000 mg Product Wasted: ___ mg [facility] donepezil 2019-05-15 03:00:00 No Notes: (Sa me as: Aricept) [facility] rosuvastatin 2019-05-15 03:00:00 No Notes: Same as Crestor [facility] Ondansetron 2019-05-15 00:17:00 No Notes: (Same as: Zofran) MEDICATION WASTE Product Size: 4 mg Product Wasted: ___ mg [facility] Morphine 2019-05-15 00:17:00 No Not es: (Same as:MORPhine Sulfate) [facility] Tramadol 2019-05-15 00:17:00 No Notes: Not to exceed 400mg/day. (Same As: Ultram) [facility] Ambien 2019-05-15 00:16:00 No Notes: (Same As: Ambien) [facility] Levothyroxine Sodium 0.05 MG Oral Tablet [Synthroid] 2 20:14:00 Yes 50 microgram = 1 tab, PO, Daily, # 30 ta b, 0 Refill(s) [facility] 24 HR Metoprolol Tartrate 25 MG Extended Release Tablet [Top rol] 2019-05-14 20:14:00 No 25 mg = 1 tab, PO, Daily, # 3 0 tab, 0 Refill(s) [facility] Amlodipine 5 MG Oral Tablet [Norvasc] 2019-05-14 20:14:00 Y es 5 mg = 1 tab, PO, Daily, # 30 tab, 0 Refill(s) [facility] brinzolamide 10 MG/ML Ophthalmic Suspension [Azopt] 2018-06 20:14:00 Yes 1 drp, OPTH, BID, # 10 mL, 0 Refill(s) Theodore Rizvi ranitidine 300 mg oral capsule 2019-05-14 20:14:00 Yes 300 mg = 1 cap, PO, Daily, # 30 cap, 0 Refill(s) Ct bob Rizvi Colestipol Hydrochloride 1000 MG Oral Tablet 2019-05-14 20:14:00 Yes See Instructions, 2 tab PO qam and 1 tab PO qpm, 0 Refill(s) Theodore Rizvi rosuvastatin 40 mg oral tablet 2019-05-14 20:14:00 Yes 40 mg = 1 tab, PO, Bedtime, # 90 tab, 3 Refill(s) Theodore Rizvi amitriptyline 50 mg oral tablet 2019-05-14 20:14:00 Yes 50 mg = 1 tab, PO, Bedtime, # 30 tab, 0 Refill(s) Theodore Rizvi losartan 100 mg oral tablet 2019-05-14 20:14:00 Yes 100 mg = 1 tab, PO, Daily, # 30 tab, 0 Refill(s) Delilah Rizvi Eliquis 2019-05-14 20:14:00 Yes 2.5 mg, PO, Q12H, 0 Refill(s) Theodore Rizvi donepezil 5 mg oral tablet 2019-05-14 20:14:00 Yes 5 mg = 1 tab, PO, Bedtime, 0 Refill(s) Theodore Rizvi latanoprost 0.05 MG/ML Ophthalmic Solution 2019-05-14 20:14:00 Yes 1 drp, Each Affected Eye, Bedtime, # 1 btl, 1 Refill(s) [facility] amitriptyline (ELAVIL) 50 MG tablet 2016-05-17 18:22:22 Yes 50mg Take 50 mg by mouth every night as needed for Sleep. [facility] nebivolol (BYSTOLIC) 10 MG tablet 2016-05-17 18:22:22 Yes 20mg QD Take 20 mg by mouth daily. [facility] losartan-hydrochlorothiazide (HYZAAR) 100-25 mg per tablet 2016-05-17 18:22:22 Yes 1{tbl} QD Take 1 tablet by mouth daily. [facility] levothyroxine (SYNTHROID, LEVOTHROID) 50 MCG tablet 2015-06 18:22:22 Yes 50ug Take 50 mcg by mouth Every morning on an empty stomach. [facility] potassium chloride (KLOR-CON) 10 MEQ CR tablet 2016-05-17 18:22: 22 Yes 10meq QD Take 10 mEq by mouth daily. [facility] calcium carbonate-vitamin D3 (CALCIUM- TAMIN D) 500 mg(1,250mg) -200 unit per tablet 2016-05-17 18:22:22 Yes 1{tbl} Take 1 tablet by mouth 2 (two) times daily with breakfast and dinner. [facility] aspirin 81 MG EC tablet 2016-05-17 18:22:22 Yes 81mg QD Take 81 mg by mouth daily. [facility] multivitamin per tablet 2016-05-17 18:22:22 Yes 1{tbl} QD Take 1 tablet by mouth daily. [facility] brimonidine (ALPHAGAN P) 0.1 % Drop 2016-05-17 18:22:22 Yes [facility] rosuvastatin (CRESTOR) 20 MG tablet 2016-05-17 00:00:00 Yes 40mg QD Take 2 tablets (40 mg total) by mouth daily. [facility] Amitriptyline Hcl 50 Mg Tablet Amitriptyline Hcl 50 Mg Tablet Yes 50 Daily [facility] Amlodipine Besylate 5 Mg Tablet Amlodipine Besylate 5 Mg Tablet Yes 10 Daily [facility] Brinzolamide (Azopt) 10 Ml Susp Brinzolamide (Azopt) 10 Ml Susp Yes 1 Twice A Day [facility] Calcium Carbonate/Vitamin D3 (Calcium 500+D Tablet Guillermina w) 1 Each Tab.chew Calcium Carbonate/Vitamin D3 (Calcium 500+D Tablet Chew) 1 Each Tab.chew Yes 1 Twice A Day [facility] Lactobac Cmb #3/Fos/Pantethine (Probiotic & Acidophilu s Cap) 1 Each Capsule Lactobac Cmb #3/Fos/Pantethine (Probiotic & Acidophilus Cap) 1 Each Capsule Yes Bedtime [facility] Levofloxacin (Levaquin) 500 Mg Tablet Levofloxacin (Levaquin) 500 M g Tablet Yes 500 Daily [facility] Levothyroxine Sodium 50 Mcg Tablet Levothyroxine Sodium 50 Mcg Tablet Yes 50 Every Morning [facility] Losartan Potassium 100 Mg Tablet Losartan Potassium 100 Mg Tablet Yes 100 Daily [facility] Metoprolol Succinate 50 Mg Tab.er.24h Metoprolol Succinate 50 Mg Ta b.er.24h Yes 50 Daily [facility] Metoprolol Tartrate 25 Mg Tablet Metoprolol Tartrate 25 Mg Tablet Yes 25 Every 12 Hours as needed for Heart Rate >100 Bpm [facility] Multivitamin (Multi-Vitamin Daily) 1 Each Tablet Multi vitamin (Multi-Vitamin Daily) 1 Each Tablet Yes 1 Daily [facility] Ranitidine Hcl 300 Mg Capsule Ranitidine Hcl 300 Mg Capsule Yes 300 Daily [facility] Rivaroxaban (Xarelto) 10 Mg Tablet Rivaroxaban (Xarelto) 10 Mg Tablet Yes 15 [facility] Rivastigmine Tartrate (Rivastigmine) 1.5 Mg Capsule Ri vastigmine Tartrate (Rivastigmine) 1.5 Mg Capsule Yes 9.5 Daily [facility] Rosuvastatin Calcium (Crestor) 10 Mg Tab Rosuvastatin Calcium (Crestor) 10 Mg Tab Yes 40 [facility] Metoprolol Succinate 50 Mg Tab.er.24h, 50 Mg Oral Meto prolol Succinate 50 Mg Tab.er.24h, 50 Mg Oral 2018-11-30 00:00:00 No 50 D aily [facility] Aspirin (Aspirin Ec) 81 Mg Tablet., 81 Mg Oral Aspir in (Aspirin Ec) 81 Mg Tablet., 81 Mg Oral 2018-11-28 00:00:00 No 81 Da savannah [facility] Nebivolol Hcl (Bystolic) 10 Mg Tablet, 20 Mg Oral Nebi volol Hcl (Bystolic) 10 Mg Tablet, 20 Mg Oral 2018-11-28 00:00:00 No 20 Donna y [facility] Sucralfate (Carafate) 1 Gm/10 Ml Oral.susp, 1 Gm Oral Sucralfate (Carafate) 1 Gm/10 Ml Oral.susp, 1 Gm Oral 2018-11-28 00:00:00 No 1 Twice A Day [facility] Brimonidine Tartrate 5 Ml Drops, 1 Drop Ophthalmic Vanita monidine Tartrate 5 Ml Drops, 1 Drop Ophthalmic 2018-05-31 00:00:00 No 1 Twice A Day [facility] Potassium Chloride 20 Meq Tab.er.prt, 20 Meq Oral Pota ssium Chloride 20 Meq Tab.er.prt, 20 Meq Oral 2018-05-31 00:00:00 No 20 Twice A Day [facility] Rosuvastatin Calcium (Crestor) 20 Mg Tablet, 40 Mg Ora l Rosuvastatin Calcium (Crestor) 20 Mg Tablet, 40 Mg Oral 2018-05-31 00:00:00 No 4 0 Daily [facility] Temazepam 15 Mg Capsule, 15 Mg Oral Temazepam 15 Mg Capsule, 15 Mg Oral 2018-05-31 00:00:00 No 15 Bedtime [facility] Meclizine Hcl 25 Mg Tablet, 2 Mg Oral Meclizine Hcl 25 Mg Tablet , 2 Mg Oral 2017-02-05 00:00:00 No 2 As Needed as needed for Dizziness [facility] Potassium Chloride 10 Meq Tab.er.prt, 10 Meq Oral Pota ssium Chloride 10 Meq Tab.er.prt, 10 Meq Oral 2017-02-05 00:00:00 No 10 Daily [facility] Ubidecarenone (Coq-10) 100 Mg Capsule, 200 Mg Oral Ubi decarenone (Coq-10) 100 Mg Capsule, 200 Mg Oral 2016-05-03 00:00:00 No 200 Da savannah [facility] Alendronate Sodium (Fosamax) 70 Mg Tablet, 70 Mg Oral Alendronate Sodium (Fosamax) 70 Mg Tablet, 70 Mg Oral 2016-05-01 00:00:00 No 70 Qweekly [facility] Diltiazem Hcl (Cartia Xt) 240 Mg Cap.sr.24h, 240 Mg Or al Diltiazem Hcl (Cartia Xt) 240 Mg Cap.sr.24h, 240 Mg Oral 2016-05-01 00:00:00 No 240 Twice A Day [facility] Vital Signs Vital Name Observation Time Observation Value Comments Source Heart Rate 2019-05-16 17:05:00 [facility] Respitory Rate 2019-05-16 17:05:00 [facility] Systolic (mm Hg) 2019-05-16 17:05:00 [facility] Diastolic (mm Hg) 2019-05-16 17:05:00 [facility] Temperature Oral (F) 2019-05-16 13:25:00 97.7 F [facility] Heart Rate 2019-05-16 13:25:00 [facility] Respitory Rate 2019-05-16 13:25:00 [facility] Systolic (mm Hg) 2019-05-16 13:25:00 [facility] Diastolic (mm Hg) 2019-05-16 13:25:00 [facility] Temperature Oral (F) 2019-05-16 09:56:00 98.0 F [facility] Heart Rate 2019-05-16 09:56:00 [facility] Respitory Rate 2019-05-16 09:56:00 [facility] Systolic (mm Hg) 2019-05-16 09:56:00 Jg [facility] Diastolic (mm Hg) 2019-05-16 09:56:00 [facility] Temperature Oral (F) 2019-05-16 05:43:00 97.7 F [facility] Height 2019-05-14 18:45:00 157.48 cm [facility] Weight 2019-05-14 18:45:00 [facility] BMI Calculated 2019-05-14 18:45:00 [facility] Procedures Procedure Date / Time Performed Performing Clinician [facility] Computed tomography of brain without radiopaque contrast 201 02-03-07 00:00:00 JOSÉ MIGUEL BANKS [facility] Magnetic resonance imaging of brain without contrast 2018-05 00:00:00 JOSÉ MIGUEL BANKS [facility] Plan of Care Planned Activity Planned Date Details Comments Source Future Scheduled Test 2020-02-24 00:00:00 INFLUENZA VACCINE (#1) [code = INFLUENZA VACCINE (#1)] [facility] Lalie r Future Scheduled Test 2016-06-26 00:00:00 MEDICARE ANNUAL WE LLNESS (YEAR 2 or FIRST YEAR if no IPPE) [code = MEDICARE ANNUAL WELLNESS (YEAR 2 or FIRST YEAR if no IPPE)] [facility] r Future Scheduled Test 2001 00:00:00 PNEUMOCOCCAL 65+ Y RS (1 of 1 - [id number] PCV13) [code = PNEUMOCOCCAL 65+ YRS (1 of 1 - [id number] PCV13)] [facility] r Encounters Start Date/Time End Date/Time Encounter Type Admission Type [facility] Care Department Encounter ID Source 2019-05-15 13:35:00 2019-05-16 11:20:00 Outpatient C Rachid Silva [facility] [id number] 2019-05-15 13:35:00 2019-05-15 13:35:00 Outpatient SE CAR 7500 [facility] 2018-11-28 22:04:00 2018-11-30 09:56:00 Discharged Inpatient (obs) 1 HUE SALAZAR [facility] [id number] [facility] 2018-10-15 03:26:00 2018-10-15 07:10:00 Departed Emergency Room 1 BRYON DODGE [facility] [id number] [facility] 2018-05-31 09:18:00 2018-06-01 10:15:00 Discharged Inpatient 1 TAMIA SERRANO [facility] [id number] [facility] Results Test Description Test Time Test Comments Results Result Comments Source CT BRAIN WO 2020-05-18 07:42:00 [facility] 1935 Sex: F [facility] [address] [address] Patient Name: BRITTNEY DAMON MR #: [id number] : 1935 Age/Sex: 84/F Req #: [id number] Adm Physician: Ordered by: IRWIN AVILA MD Report #: [id number] Location: ER Room/Bed: Procedure: [id number] CT/CT BRAIN WO Exam Date: 05/18/20 Exam Time: 714 REPORT STATUS: Signed CT BRAIN WO HISTORY: Tingling sensation to head and face COMPARISON: MRI of the brain on 1119 Technique: Noncontrast axial scans were obtained from skull base to the vertex. Coronal and sagittal reconstructions obtained from the axial data. One or more of the following dose reduction techniques were used: Automated exposure control, adjustment of the mA and/or kV according to patient size, and/or utilization of iterative reconstruction technique. DISCUSSION: Scalp/Skull: Unremarkable. Brain sulci: Mildly prominent. Ventricles: Compensatory dilatation. Extra-axial spaces: No masses or fluid collections. Carotid and vertebral artery calcifications are present. Parenchyma: Chronic left inferior cerebellar cortical infarct and right thalamocapsular lacunar infarct are unchanged. Moderate bilateral deep white matter hypodensity is likely chronic microvascular ischemic change. 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 Otherwise, no masses, hemorrhage, or large vascular territory acute infarct. Dural sinuses: No abnormal densities. Sellar/Suprasellar region: Intact. Skull base: Intact. Incidental findings: None. IMPRESSION: 1. No acute intracranial abnormalities. 2. Moderate supratentorial chronic microvascular ischemic change. Mild generalized cerebral volume loss. 3. 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 4. 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 Signed by: Dr. Joe Dubon M.D. on 05/18/2020 7:46 AM Dictated By: JOE DUBON MD 5 Transcribed By: DIANNA on 05/18/20745 COPY TO: IRWIN AVILA MD ELECTROLYTES 2019-05-14 18:48:00 9.8 [facility] ELECTROLYTES 2019-05-14 18:48:00 91 [facility] ELECTROLYTES 2019-05-14 18:48:00 29 [facility] ELECTROLYTES 2019-05-14 18:48:00 1.87 [facility] ELECTROLYTES 2019-05-14 18:48:00 142 [facility] ELECTROLYTES 2019-05-14 18:48:00 3.8 Mem o[facility] ELECTROLYTES 2019-05-14 18:48:00 111 [facility] ELECTROLYTES 2019-05-14 18:48:00 25 [facility] ELECTROLYTES 2019-05-14 18:48:00 10.2 [facility] ELECTROLYTES 2019-05-14 18:48:00 25 [facility] HEMATOLOGY 2019-05-14 18:48:00 73.5 [facility] HEMATOLOGY 2019-05-14 18:48:00 12.3 [facility] HEMATOLOGY 2019-05-14 18:48:00 10.5 Memor [facility] HEMATOLOGY 2019-05-14 18:48:00 2.8 Mem[facility] HEMATOLOGY 2019-05-14 18:48:00 0.9 [facility] HEMATOLOGY 2019-05-14 18:48:00 4.9 [facility] HEMATOLOGY 2019-05-14 18:48:00 0.8 [facility] HEMATOLOGY 2019-05-14 18:48:00 0.7 [facility] HEMATOLOGY 2019-05-14 18:48:00 0.2 [facility] HEMATOLOGY 2019-05-14 18:48:00 0.1 [facility] HEMATOLOGY 2019-05-14 18:48:00 Test Item PT (test code = PT) 12.7 s 12.0-14.7 [facility] [id number] 18:48:00* Test Item Value Reference Range Interpretation Comments PTT (test code = PTT) 22.2 s 22.9-35.8 [id number] 18:48:00* Test Item Value Reference Range Interpretation Comments INR (test code = INR) 0.97 1 0.85-1.17 [facility] [id number] 18:48:[facility] 2019-05-14 18:48:003.78[facility] [id number] 18:48:0012.1[facility] AkwnfudOPNGEDNZJZ5060-71-04 18:48:0035.7[facility] MjbckqxTVSWQYHRPX3309-32-25 18:48:0094.3[facility] [id number] 18:48:00* Test Item Value Reference Range Interpretation Comments MCH (test code = MCH) 31.9 pg 27.0-31.0 [facility] [id number] 18:48:0033.9[facility] 2019-05-14 18:48:0014.1[facility] [id number] 18:48:03782Sirauotj NvhwwixJUJKUPKFYW4970-84-92 18:48:009.3[facility] [id number] 15:50:[address] [address] Patient Name: BRITTNEY DAMON MR #: [id number] : 1935 Age/Sex: 83/F Req #: [id number] Adm Physician: Ordered by: BALWINDER PALOMO M.D. Report #: [id number] Location: MRI Room/Bed: Procedure: [id number] MRI/MRI BRAIN WO Exam Date: Exam Time: REPORT STATUS: Signed Examination: MRI BRAIN WITHOUT CONTRAST History: Alzheimer's disease , delusional, headaches Comparison studies: Most recent brain MRI 05/31/2018 Technique: Sagittal T2; axial DWI, FLAIR, GRE or SWI, T1, Coronal FLAIR. Findings: Scalp: No abnormal signal. No masses. Bone marrow: Normal in signal intensity. Bra in volume: Mild volume loss. Ventricles: No hydrocephalus. Extra-axial spaces: No abnormalities. Unchanged tiny pineal region cyst. Parenchyma: There are patchy and confluent areas of T2/FLAIR hyperintensity in the periv entricular and subcortical and pontine white matter, nonspecific. No masses, hemorrhage, or acute cortical based vascular insults. 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 A chronic lacunar infarct in the right thalamocapsular is unchanged. Suprase llar and sellar region: No abnormalities. Craniocervical junction: No abnormal ities. The foramen magnum is patent. No Chiari malformations. Vessels: Chary l flow-voids in the arteries and sinuses. Additional findings: At least m ild degenerative spinal canal stenosis at C2-C3 and C3-C4 due to disc bulge an d ligamentum flavum thickening. IMPRESSION: 1. No new acute intracran ial abnormality, unchanged compared to MRI of 05/31/2018. 2. Stable moder ate chronic microvascular ischemic change. 3. Unchanged mild volume loss. 4. Also unchanged chronic left cerebellar and right capsular lacunar infar ct. Signed by: Dr. Bronwyn Caballero M.D. on 03/05/2019 3:55 PM Dictate d By: BRONWYN CABALLERO MD [id number] Transcribed By: DIANNA on 03/05/19 [id number] COPY TO: BALWINDER PALOMO MD BLOOD [id number] 14:01:00* Test Item Value Reference Range Interpretation Comments CULTURE (BEAKER) (test code = 1095) No growth in 5 days BLOOD [id number] 12:01:00* Test Item Value Reference Range Interpretation Comments CULTURE (BEAKER) (test code = 1095) No growth in 5 days RAD, CHEST, 1 VIEW, NON [id number] 12:20:00Reason for exam:->chest painShould this be performed at the bedside?->YesFINAL REPORT TECHNIQUE: Frontal view of the chest. INDICATION: 83-year-old woman with chest pain. COMPARISON: None. FINDINGS: LINES/TUBES: Event recorder projects over the medial lower left hemithorax. LUNGS: The lungs are well inflated. No consolidation or pulmonary edema. PLEURA: No pneumothorax or significant pleural effusion. HEART AND MEDIASTINUM: Prominent cardiac romie houette. Atherosclerotic calcifications in the tortuous thoracic aorta. Convex d ensity in the right paratracheal region. SOFT TISSUES AND BONES: Thyroid convex curvature of the partially visualized lumbar spine. IMPRESSION:Convex density in the right paratracheal region. While this finding may represent prominent vas culature, lymphadenopathy or mass cannot be excluded. RECOMMENDATION:Chest CT ma y be obtained for further evaluation. Signed: Armando Hendrix MDReport Verified Date/Time: 12/13/2018 12:20:39 Reading Location: [address] Consult [facility] , BRAIN, WITHOUT [id number] 11:57:00Reason for exam:->headacheWhat is the patient's sedation requirement?->No SedationFINAL REPORT CT Head without contrast CLINICAL HISTORY: headacheconfusion TECHNIQUE: Contiguous axial CT images through the head without contrast. This exam was performed according to the departmental dose optimization program which includes automated exposure control, adjustment of the mA and/or kV according to the patient size, and/or use of an iterative reconstruction technique. COMPARISON: None FINDINGS: There is no CT evidence of acute infarct or intracranial hemorrhage. There is a chronic infarct of the right thalamocapsular junction. There is a chronic left posterior cerebellar infarct. There is periventricular and subcortical white matter hypodensity which is nonspecific but compatible with chronic microvascular ischemic change. There are atherosclerotic calc ifications of the intracranial circulation. There is generalized parenchymal vol ume loss without hydrocephalus, midline shift, or apparent mass effect. There ar e no extra-axial fluid collections. The skull is intact. The visualized paranasa l sinuses are well-aerated. IMPRESSION: No CT evidence of acute infarct, hemorr yojana, or hydrocephalus. Chronic infarcts of the right thalamocapsular junction a nd posterior left cerebellum. Signed: Shailesh Blackman MDReport Verified Date/Time: 12/13/2018 11:57:25 Reading Location: [facility] C013V Neuro Reading Room Norma ctronically signed by: SHAILESH BLACKMAN M.D. on 12/13/2018 11:57 AM POCT-LACTIC ACID, [id number] 11:19:00* Test Item Value Reference Range Interpretation Comments POC-LACTIC ACID, VENOUS (BEAKER) (test code = 2805) 1.9 mmol/L 0. 9-1.[address] [facility] [address] [address] URINALYSIS W/ REFLEX URINE [id number] 11:19:00* Test Item Value Reference Range Interpretation Comments COLOR (BEAKER) (test code = 470) Light Yellow CLARITY (BEAKER) (test code = 469) Clear SPECIFIC GRAVITY UA (BEAKER) (test code = 468) 1.004 1.001-1 .035 PH UA (BEAKER) (test code = 467) 7.0 5.0-8.0 PROTEIN UA (BEAKER) (test code = 464) Negative Negative GLUCOSE UA (BEAKER) (test code = 365) Negative Negative KETONES UA (BEAKER) (test code = 371) Negative Negative BILIRUBIN UA (BEAKER) (test code = 462) Negative Negative BLOOD UA (BEAKER) (test code = 461) Negative Negative NITRITE UA (BEAKER) (test code = 465) Negative Negative LEUKOCYTE ESTERASE UA (BEAKER) (test code = 466) Negative Negat debbie UROBILINOGEN UA (BEAKER) (test code = 463) 0.2 mg/dL 0.2-1.0 RBC UA (BEAKER) (test code = 519) < /HPF WBC UA (BEAKER) (test code = 520) < /HPF SQUAMOUS EPITHELIAL (BEAKER) (test code = 516) < /HPF SOURCE(BEAKER) (test code = 5735) CBC W/PLT COUNT & AUTO [id number] 11:03:00* Test Item Value Reference Range Interpretation Comments WHITE BLOOD CELL COUNT (BEAKER) (test code = 775) 9.3 K/ L 3.5- 10.5 RED BLOOD CELL COUNT (BEAKER) (test code = 761) 4.44 M/ L 3.93-5 .22 HEMOGLOBIN (BEAKER) (test code = 410) 13.4 GM/DL 11.2-15.7 HEMATOCRIT (BEAKER) (test code = 411) 41.8 % 34.1-44.9 MEAN CORPUSCULAR VOLUME (BEAKER) (test code = 753) 94.1 fL 79. 4-94.8 MEAN CORPUSCULAR HEMOGLOBIN (BEAKER) (test code = 751) 30.2 pg 25.6-32.2 MEAN CORPUSCULAR HEMOGLOBIN CONC (BEAKER) (test code = 752) 32.1 GM/DL 32.2-35.5 L RED CELL DISTRIBUTION WIDTH (BEAKER) (test code = 412) 13.8 % 11.7-14.4 PLATELET COUNT (BEAKER) (test code = 756) 232 K/CU MM 150-450 MEAN PLATELET VOLUME (BEAKER) (test code = 754) 10.4 fL 9.4-12 .3 NUCLEATED RED BLOOD CELLS (BEAKER) (test code = 413) 0 /100 WBC 0 -0 NEUTROPHILS RELATIVE PERCENT (BEAKER) (test code = 429) 68 % LYMPHOCYTES RELATIVE PERCENT (BEAKER) (test code = 430) 19 % MONOCYTES RELATIVE PERCENT (BEAKER) (test code = 431) 11 % EOSINOPHILS RELATIVE PERCENT (BEAKER) (test code = 432) 2 % BASOPHILS RELATIVE PERCENT (BEAKER) (test code = 437) 1 % NEUTROPHILS ABSOLUTE COUNT (BEAKER) (test code = 670) 6.32 K/ L 1.56-6.13 H LYMPHOCYTES ABSOLUTE COUNT (BEAKER) (test code = 414) 1.73 K/ L 1.18-3.74 MONOCYTES ABSOLUTE COUNT (BEAKER) (test code = 415) 1.02 K/ L 0. 24-0.36 H EOSINOPHILS ABSOLUTE COUNT (BEAKER) (test code = 416) 0.14 K/ L 0.04-0.36 BASOPHILS ABSOLUTE COUNT (BEAKER) (test code = 417) 0.06 K/ L 0. 01-0.08 IMMATURE GRANULOCYTES-RELATIVE PERCENT (BEAKER) (test code = 2801) 1 % 0-1 CT MAXIO FAC/PARANAS [id number] 08:53:00 [facility] [address] [address] Patient Name: BRITTNEY DAMON MR #: [id number] : 1935 Age/Sex: 83/F Req #: [id number] Adm Physician: Ordered by: MARGARITO OCAMPO MD Report #: [id number] Location: CT Room/Bed: Procedure: [id number] CT/C T MAXIO FAC/PARANAS WO Exam Date: 12/04/18 Exam Time : 08 REPORT STATUS: Signed CT MAXIO FAC/PARANAS WO HISTORY: Fall COMPARISON: Concurrent head CT TECHNIQUE: Axial CT images through the face were obtained without contrast. Coronal/sagittal reformations were created. One or more of the following dose reduction techniques were used: Automated exposure control, adjustment of the mA and/or kV according to patient size, and/or utilization of iterative rec onstruction technique. DISCUSSION: Minimally displaced fractures of the b ilateral nasal bones, right greater than left, are associated with mild local soft tissue swelling. No additional acute fracture is seen. Advanced cervic al spine degenerative changes are partially visualized. The orbits are in tact. Both ocular lenses are thinned. Intraorbital contents are otherwise elliott sly unremarkable. The paranasal sinuses are clear. Small right thyroid lobe calcification is partially visualized. Air in the bilateral parotid ducts tracks into the bilateral parotid glands. IMPRESSION: 1. Minimally dis placed bilateral nasal bone fractures, right greater than left. 2. No other acute osseous abnormalities in the face. Signed by: Mayur Rincon on 12/04/2018 9:02 AM Dictated By: JOE DUBON MD 1 Transcribed By: DIANNA on 11/23 COPY TO: MARGARITO OCAMPO MD CT BRAIN [id number] 08:48:[address] [address] Patient Name: BRITTNEY DAMON MR #: [id number] : 1935 Age/Sex: 83/F Req #: [id number] Adm Physician: Ordered by: MARGARITO OCAMPO MD Report #: [id number] Location: CT Room/Bed: Procedure: [id number] CT/C T BRAIN WO Exam Date: 12/04/18 Exam Time: 0820 REPORT STATUS: Signed CT BRAIN WO HISTORY: Head trauma, concussion COMPARISON: MRI of the brain 05/31/[address] 05/31/2018 Technique: Noncontrast axial scans were obtained f rom skull base to the vertex. Coronal and sagittal reconstructions obtained f rom the axial data. One or more of the following dose reduction techniques we re used: Automated exposure control, adjustment of the mA and/or kV according to patient size, and/or utilization of iterative reconstruction technique. DISCUSSION: Scalp/Skull: Unremarkable. Brain sulci: Mildly prominent. Ventricles: Compensatory dilatation. Extra-axial spaces: No masses or fluid c ollections. Carotid siphon calcifications are present. Parenchyma: Mil d to moderate bilateral deep white matter hypodensity is likely chronic microv ascular ischemic change. 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 Otherwise, no hemorrhage, or large vascular territory acute infar ct. Dural sinuses: No abnormal densities. Sellar/Suprasellar region: Int act. Skull base: Intact. Incidental findings: None. IMPRESSION: 1. N o acute intracranial abnormalities. 2. Mild to moderate supratentorial chroni c microvascular ischemic change. Mild generalized cerebral volume loss. 3. 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 4. Unchanged small pineal cyst. Signed by: Dr. Joe Dubon M.D. on 12/04/2018 8:53 AM Dictated By: JOE DUBON MD Elec tronically Signed By: JOE DUBON MD on 12/04/18852 Transcribed By: MAMTA CLEMENT on 12/04/18852 COPY TO: MARGARITO OCAMPO MD Creatine Kinase MB 2018-11-29 14:02:00* Test Item Value Reference Range Interpretation Comments Creatine Kinase MB (test code = 90881-4) 1.40 0-5.0 [facility]evilleTroponin [id number] 14:02:00* Test Item Value Reference Range Interpretation Comments Troponin I (test code = RCH7303) 0.045 0-0.300 [facility]evilleCreatine Czcbas3952-62-52 13:57:00* Test Item Value Reference Range Interpretation Comments Creatine Kinase (test code = 2157-6) 44 29-168 [facility] Americaodium Gvscz1546-40-51 05:33:00* Test Item Value Reference Range Interpretation Comments Sodium Level (test code = 2951-2) 141 136-145 [facility]evillePotassium Bkilo3046-06-76 05:33:00* Test Item Value Reference Range Interpretation Comments Potassium Level (test code = 2823-3) 4.7 3.5-5.1 [facility] BeevilleChloride Numev5745-85-05 05:33:00* Test Item Value Reference Range Interpretation Comments Chloride Level (test code = 2075-0) 113 98-107 H [facility] BeevilleCarbon Dioxide Mdwjr1174-23-15 05:33:00* Test Item Value Reference Range Interpretation Comments Carbon Dioxide Level (test code = 2028-9) 25 22-29 [facility] BeevilleAnion Kut8164-92-63 05:33:00* Test Item Value Reference Range Interpretation Comments Anion Gap (test code = 30046-9) 7.7 8-16 L [facility] BeevilleBlood Urea Hegcgbly1516-25-39 05:33:00* Test Item Value Reference Range Interpretation Comments Blood Urea Nitrogen (test code = 3094-0) 27 7-26 H [facility] BeevilleCreatinine2019-06-07 05:33:00* Test Item Value Reference Range Interpretation Comments Creatinine (test code = 2160-0) 1.73 0.57-1.11 H [facility]evilleBUN/Creatinine Tfkyv1304-09-17 05:33:00* Test Item Value Reference Range Interpretation Comments BUN/Creatinine Ratio (test code = 3097-3) 16 6-25 [facility] BeevilleEstimat Glomerular Filtration Rate 2018-11-29 05:33:00* Test Item Value Reference Range Interpretation Comments Estimat Glomerular Filtration Rate (test code = 168177005) 28 >60 L Ranges were taken from the National Kidney Disease Education Program and the [facility] [employer] literature.Reference ranges:60 or greater: Oztbmb74-25 ( for 3 consecutive months): Chronic kidney disease 15 or less: Kidney failureCHRISTUS [facility]ohn Hospital BeevilleGlucose Qbqhx9242-25-54 05:33:00* Test Item Value Reference Range Interpretation Comments Glucose Level (test code = BLK7031) 92 74-118 [facility] BeevilleCalcium Svzmo0097-25-45 05:33:00* Test Item Value Reference Range Interpretation Comments Calcium Level (test code = 75151-1) 8.8 8.4-10.2 [facility] BeevilleTotal Iiltncusa0238-04-81 05:33:00* Test Item Value Reference Range Interpretation Comments Total Bilirubin (test code = 1975-2) 0.5 0.2-1.2 [facility] BeevilleAspartate Amino Transf (AST/SGOT) 2018-11-29 05:33:00* Test Item Value Reference Range Interpretation Comments Aspartate Amino Transf (AST/SGOT) (test code = Aspartate Amino Transf (AST/SGOT)) 24 5-34 [facility] BeevilleAlanine Aminotransferase (ALT/SGPT) 2018-11-29 05:33:00* Test Item Value Reference Range Interpretation Comments Alanine Aminotransferase (ALT/SGPT) (test code = 1742-6) 21 0-55 [facility] BeevilleTotal Eovfsfp5298-93-64 05:33:00* Test Item Value Reference Range Interpretation Comments Total Protein (test code = 2885-2) 5.3 6.5-8.1 L [facility] BeevilleAlbumin2019-06-07 05:33:00* Test Item Value Reference Range Interpretation Comments Albumin (test code = 1751-7) 3.1 3.5-5.0 L [facility] BeevilleGlobulin2019-06-07 05:33:00* Test Item Value Reference Range Interpretation Comments Globulin (test code = 47030-4) 2.2 2.3-3.5 L [facility] BeevilleAlbumin/Globulin Abmby6881-97-18 05:33:00 * Test Item Value Reference Range Interpretation Comments Albumin/Globulin Ratio (test code = 1759-0) 1.4 0.8-2.0 [facility]evilleAlkaline Qzfeegmurmo3114-39-17 05:33:00* Test Item Value Reference Range Interpretation Comments Alkaline Phosphatase (test code = 6768-6) 45 40-150 [facility] BeevilleWhite Blood Onbpb8569-17-81 05:21:00* Test Item Value Reference Range Interpretation Comments White Blood Count (test code = 6690-2) 6.78 4.8-10.8 [facility] BeevilleRed Blood Wgvlf1675-29-50 05:21:00* Test Item Value Reference Range Interpretation Comments Red Blood Count (test code = 789-8) 3.92 3.6-5.1 [facility]evilleHemoglobin2019-06-07 05:21:00* Test Item Value Reference Range Interpretation Comments Hemoglobin (test code = 71894-9) 11.7 12.0-16.0 L [facility]evilleHematocrit2019-06-07 05:21:00* Test Item Value Reference Range Interpretation Comments Hematocrit (test code = 4544-3) 37.7 34.2-44.1 [facility] BeevilleMean Corpuscular Ekfuii9611-95-27 05:21:00* Test Item Value Reference Range Interpretation Comments Mean Corpuscular Volume (test code = 787-2) 96.2 81-99 [facility]evilleMean Corpuscular Qcvuauoceo8537-44-68 05:21:00* Test Item Value Reference Range Interpretation Comments Mean Corpuscular Hemoglobin (test code = 785-6) 29.8 28-32 [facility] Hemoglobin Concent 2018-11-29 05:21:00* Test Item Value Reference Range Interpretation Comments Mean Corpuscular Hemoglobin Concent (test code = 786-4) 31.0 31-35 [facility]evilleRed Cell Distribution Lkcyy8988-44-89 05:21:00* Test Item Value Reference Range Interpretation Comments Red Cell Distribution Width (test code = 62692-1) 14.5 11.7 -14.4 H [facility] BeevillePlatelet Cmwkh6650-05-86 05:21:00* Test Item Value Reference Range Interpretation Comments Platelet Count (test code = 777-3) 142 140-360 [facility] BeevilleNeutrophils (%) (Auto)2018-11-29 05:21:00 * Test Item Value Reference Range Interpretation Comments Neutrophils (%) (Auto) (test code = 77745-0) 55.8 38.7-80.0 [facility] BeevilleLymphocytes (%) (Auto)2018-11-29 05:21:00 * Test Item Value Reference Range Interpretation Comments Lymphocytes (%) (Auto) (test code = 736-9) 28.5 18.0-39.1 [facility]evilleMonocytes (%) (Auto)2018-11-29 05:21:00* Test Item Value Reference Range Interpretation Comments Monocytes (%) (Auto) (test code = 5905-5) 12.8 4.4-11.3 H [facility]evilleEosinophils (%) (Auto)2018-11-29 05:21:00 * Test Item Value Reference Range Interpretation Comments Eosinophils (%) (Auto) (test code = 713-8) 1.9 0.0-6.0 [facility]evilleBasophils (%) (Auto)2018-11-29 05:21:00* Test Item Value Reference Range Interpretation Comments Basophils (%) (Auto) (test code = 706-2) 0.6 0.0-1.0 [facility] BeevilleIM GRANULOCYTES %2018-11-29 05:21:00* Test Item Value Reference Range Interpretation Comments IM GRANULOCYTES % (test code = IM GRANULOCYTES %) 0.4 0.0- 1.0 [facility]evilleNeutrophils # (Auto)2018-11-29 05:21:00* Test Item Value Reference Range Interpretation Comments Neutrophils # (Auto) (test code = 751-8) 3.8 2.1-6.9 [facility]evilleLymphocytes # (Auto)2018-11-29 05:21:00* Test Item Value Reference Range Interpretation Comments Lymphocytes # (Auto) (test code = 55601-3) 1.9 1.0-3.2 [facility]evilleMonocytes # (Auto)2018-11-29 05:21:00* Test Item Value Reference Range Interpretation Comments Monocytes # (Auto) (test code = 742-7) 0.9 0.2-0.8 H [facility]evilleEosinophils # (Auto)2018-11-29 05:21:00* Test Item Value Reference Range Interpretation Comments Eosinophils # (Auto) (test code = 711-2) 0.1 0.0-0.4 [facility]evilleBasophils # (Auto)2018-11-29 05:21:00* Test Item Value Reference Range Interpretation Comments Basophils # (Auto) (test code = 704-7) 0.0 0.0-0.[address] [facility] Center[facility] Immature Granulocyte (auto 2018-11-29 05:21:00* Test Item Value Reference Range Interpretation Comments Absolute Immature Granulocyte (auto (desi t code = Absolute Immature Granulocyte (auto) 0.03 0-0.1 [facility] BeevilleB-Type Natriuretic Yggvfyn7110-70-44 22:04:00* Test Item Value Reference Range Interpretation Comments B-Type Natriuretic Peptide (test code = 65503-1) 1718.5 0-100 H [facility] BeevilleProthrombin Kbkx3670-41-79 21:16:00* Test Item Value Reference Range Interpretation Comments Prothrombin Time (test code = 5902-2) 22.7 11.9-14.5 H [facility] BeevilleProthromb Time International Ratio 2018-11-28 21:16:00* Test Item Value Reference Range Interpretation Comments Prothromb Time International Ratio (test code = 6301-6) 1.93 Oral Anticoagulant Therapy INR Values:1. Low Intensity Therapy 1.5 - 2.02 . Moderate Intensity Therapy 2.0 - 3.03. High Intensity Therapy(1) 2.5 - 3. 54. High Intensity Therapy(2) 3.0 - 4.05. Panic Value INR > 5.0 [facility] BeevilleActivated Partial Thromboplast Time 2018-11-28 21:16:00* Test Item Value Reference Range Interpretation Comments Activated Partial Thromboplast Time (test code = 27565-4) 39.5 23.8-35.5 H [facility] BeevilleUrine XWZ9294-55-87 21:10:00* Test Item Value Reference Range Interpretation Comments Urine WBC (test code = 5821-4) >50 0-5 H [facility] BeevilleUrine LHI3838-40-12 21:10:00* Test Item Value Reference Range Interpretation Comments Urine RBC (test code = 59973-1) NONE 0-5 [facility]evilleUrine Ilvqexow8953-31-36 21:10:00* Test Item Value Reference Range Interpretation Comments Urine Bacteria (test code = 08072-0) MODERATE NONE H [facility]evilleUrine Epithelial Agqck3304-36-91 21:10:00 * Test Item Value Reference Range Interpretation Comments Urine Epithelial Cells (test code = 13007-8) MODERATE NONE [facility] BeevilleUrine Oktur0780-08-96 21:10:00* Test Item Value Reference Range Interpretation Comments Urine Mucus (test code = 8247-9) FEW RARE H [facility] BeevilleUrine Qgdms5359-42-05 21:09:00* Test Item Value Reference Range Interpretation Comments Urine Color (test code = 5778-6) YELLOW YELLOW [facility]evilleUrine Hdpcgah3968-64-88 21:09:00* Test Item Value Reference Range Interpretation Comments Urine Clarity (test code = 12153-1) CLEAR CLEAR [facility] BeevilleUrine Specific Eayclls3866-97-76 21:09:00 * Test Item Value Reference Range Interpretation Comments Urine Specific [place] (test code = 5811-5) 1.020 1.010-1.02 5 [facility]evilleUrine jH2362-07-05 21:09:00* Test Item Value Reference Range Interpretation Comments Urine pH (test code = 29080-3) 6 5-7 [facility]evilleU[facility] Leukocyte Hkgfprxo3786-57-60 21:09:00* Test Item Value Reference Range Interpretation Comments Urine Leukocyte Esterase (test code = 54352-7) SMALL NEGATIV E [facility] BeevilleUrine Onbname6010-67-81 21:09:00* Test Item Value Reference Range Interpretation Comments Urine Nitrite (test code = 57521-5) POSITIVE NEGATIVE [facility] Tjkusoh4176-37-69 21:09:00* Test Item Value Reference Range Interpretation Comments Urine Protein (test code = 56173-6) TRACE NEGATIVE [facility]viewUrine Glucose (UA)2018-11-28 21:09:00* Test Item Value Reference Range Interpretation Comments Urine Glucose (UA) (test code = 92448-1) NEGATIVE NEGATIVE [facility]evilleU[facility] Vefprhj6308-52-84 21:09:00* Test Item Value Reference Range Interpretation Comments Urine Ketones (test code = 86468-8) NEGATIVE NEGATIVE [facility]evilleUrine Uykxwcpptszh7188-79-92 21:09:00* Test Item Value Reference Range Interpretation Comments Urine Urobilinogen (test code = 82354-7) 0.2 0.2-1 [facility]evilleU[facility] Lwcfyiuvb8966-94-48 21:09:00* Test Item Value Reference Range Interpretation Comments Urine Bilirubin (test code = 1977-8) NEGATIVE NEGATIVE [facility]evilleUrine Fblwa4924-18-56 21:09:00* Test Item Value Reference Range Interpretation Comments Urine Blood (test code = 37102-7) NEGATIVE NEGATIVE [facility] BeevilleCHEST SINGLE (PORTABLE)2018-11-28 20:43:00 [facility] [address] [address] Patient Name: BRITTNEY DAMON MR #: [id number] : 1935 Age/Sex: 83/F Req #: [id number] Adm Physician: Ordered by: HUE SALAZAR MD Report #: [id number] Location: ER Room/Bed: Procedure: [id number] DX/CHEST SINGLE (PORTABLE) Exam Date: 11/28/18 E xam Time: 2034 REPORT STATUS: Kristen d Examination: Single AP view of the chest. COMPARISON: None. 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 Lungs: The lungs are well inflated and clear. No pneumonia or pulmonary jossue a. Pleura: No pleural effusion or pneumothorax. Heart and mediastinum : Prominent heart size. Bones and soft tissues: No acute bony abnormaliti es. IMPRESSION: 1. No acute cardiopulmonary abnormalities. Signed by: Dr. Shailesh Correa M.D. on 11/28/2018 8:46 PM Dictated By: SHARLENE CORREA MD Transcribed By: DIANNA on 11/28/182045 COPY TO: HUE SALAZAR MD Urine IFL9735-18-79 06:50:00* Test Item Value Reference Range Interpretation Comments Urine WBC (test code = 5821-4) 0-5 0-5 [facility]evilleU[facility] REQ2430-29-86 06:50:00* Test Item Value Reference Range Interpretation Comments Urine RBC (test code = 46849-7) NONE 0-5 [facility]evilleU[facility] Vtmgttrt2520-60-73 06:50:00* Test Item Value Reference Range Interpretation Comments Urine Bacteria (test code = 91225-0) RARE NONE [facility]evilleU[facility] Epithelial Udsik7443-35-27 06:50:00 * Test Item Value Reference Range Interpretation Comments Urine Epithelial Cells (test code = 00438-9) FEW NONE [facility]evilleU[facility] Iylao0579-64-77 06:24:00* Test Item Value Reference Range Interpretation Comments Urine Color (test code = 5778-6) YELLOW YELLOW [facility]evilleU[facility] Kyzhifo1928-55-05 06:24:00* Test Item Value Reference Range Interpretation Comments Urine Clarity (test code = 85826-7) CLEAR CLEAR [facility]evilleU[facility] Specific Koyvtwy7259-90-96 06:24:00 * Test Item Value Reference Range Interpretation Comments Urine Specific [place] (test code = 5811-5) 1.010 1.010-1.02 5 [facility]evilleU[facility] nE6798-51-08 06:24:00* Test Item Value Reference Range Interpretation Comments Urine pH (test code = 95255-2) 6.5 5-7 [facility]evilleU[facility] Leukocyte Jhsedsei6169-09-88 06:24:00* Test Item Value Reference Range Interpretation Comments Urine Leukocyte Esterase (test code = 5799-2) NEGATIVE NEGATIVE [facility]evilleU[facility] Btgylxu1466-74-72 06:24:00* Test Item Value Reference Range Interpretation Comments Urine Nitrite (test code = 26009-3) NEGATIVE NEGATIVE [facility]evilleU[facility] Hrwvulv7637-89-32 06:24:00* Test Item Value Reference Range Interpretation Comments Urine Protein (test code = 5804-0) NEGATIVE NEGATIVE [facility]evilleUrine Glucose (UA)2018-10-15 06:24:00* Test Item Value Reference Range Interpretation Comments Urine Glucose (UA) (test code = 2349-9) NEGATIVE NEGATIVE [facility]evilleU[facility] Aynrbcg2763-49-86 06:24:00* Test Item Value Reference Range Interpretation Comments Urine Ketones (test code = 07492-0) NEGATIVE NEGATIVE [facility]evilleU[facility] Lkfpcwamwaxh6200-76-71 06:24:00* Test Item Value Reference Range Interpretation Comments Urine Urobilinogen (test code = 47503-2) 0.2 0.2-1 [facility]evilleU[facility] Mcwtbjxcm9789-45-98 06:24:00* Test Item Value Reference Range Interpretation Comments Urine Bilirubin (test code = 1978-6) NEGATIVE NEGATIVE [facility]evilleU[facility] Fctqy7467-54-25 06:24:00* Test Item Value Reference Range Interpretation Comments Urine Blood (test code = 59666-4) NEGATIVE NEGATIVE [facility] BeevilleB-Type Natriuretic Jazloiu4256-76-54 04:57:00* Test Item Value Reference Range Interpretation Comments B-Type Natriuretic Peptide (test code = 67976-6) 311.6 0-100 H [facility]evilleCHEST SINGLE (PORTABLE)2018-10-15 04:48:[address] [address] Patient Name: BRITTNEY DAMON MR #: [id number] : 1935 Age/Sex: 83/F Req #: [id number] Adm Physician: Ordered by: BRYON DODGE MD Report #: [id number] Location: ER Room/Bed: Procedure: [id number] DX/ CHEST SINGLE (PORTABLE) Exam Date: Exam Time: REPORT STATUS: Signed EXAMINATION: CHEST SINGLE (PORTABLE) INDICATION: Chest pain. COMPARISON: None FINDINGS: TUBES and LINES: None. LUNGS: Lungs are mildly hyp oinflated. Left basilar subsegmental atelectasis. There is no evidence of pn eumonia or pulmonary edema. PLEURA: No pleural effusion or pneumothorax. HEART AND MEDIASTINUM: The cardiac silhouette is mildly to moderately enl arged. The thoracic uterus tortuous and calcified. BONES AND SOFT TISSUES: No acute osseous lesion. Soft tissues are unremarkable. UPPER ABDOMEN: No free air under the diaphragm. IMPRESSION: No acute thoracic abnor mality. Signed by: Dr. Zoran Stack M.D. on 10/15/2018 4:49 AM Dictated By: RUSSELL STACK MD, MD 8 Transcribed By: DIANNA on 10/15/18448 COPY TO: BRYON DODGE MD Creatine Kinase JX2286-70-42 04:46:00* Test Item Value Reference Range Interpretation Comments Creatine Kinase MB (test code = 17020-4) 1.00 0-5.0 [facility]evilleTroponin F2326-82-21 04:46:00* Test Item Value Reference Range Interpretation Comments Troponin I (test code = PHB3326) 0.007 0-0.300 [facility] Americaodium Bmgeo1625-99-15 04:41:00* Test Item Value Reference Range Interpretation Comments Sodium Level (test code = 2951-2) 142 136-145 [facility]evillePotassium Htsut1458-65-07 04:41:00* Test Item Value Reference Range Interpretation Comments Potassium Level (test code = 2823-3) 4.2 3.5-5.1 [facility] BeevilleChloride Ldjte3800-02-33 04:41:00* Test Item Value Reference Range Interpretation Comments Chloride Level (test code = 2075-0) 109 98-107 [facility] [place]evilleCarbon Dioxide Djizv8027-92-93 04:41:00* Test Item Value Reference Range Interpretation Comments Carbon Dioxide Level (test code = 8-9) 24 -29 [facility] BeevilleAnion Hzy8397-54-88 04:41:00* Test Item Value Reference Range Interpretation Comments Anion Gap (test code = 21961-6) 13.2 8-16 [facility] [place]evilleBlood Urea Jihedwcl0363-75-19 04:41:00* Test Item Value Reference Range Interpretation Comments Blood Urea Nitrogen (test code = 3094-0) 26 7-26 [facility] BeevilleCreatinine2019-04-23 04:41:00* Test Item Value Reference Range Interpretation Comments Creatinine (test code = 2160-0) 1.68 0.57-1.11 H [facility] [place]evilleBUN/Creatinine Zqchc1832-76-99 04:41:00* Test Item Value Reference Range Interpretation Comments BUN/Creatinine Ratio (test code = 3097-3) 15 6-25 [facility] BeevilleEstimat Glomerular Filtration Rate 2018-10-15 04:41:00* Test Item Value Reference Range Interpretation Comments Estimat Glomerular Filtration Rate (test code = 916172983) 29 >60 L Ranges were taken from the National Kidney Disease Education Program and the [facility] [employer] literature.Reference ranges:60 or greater: Pppgjf32-64 ( for 3 consecutive months): Chronic kidney disease 15 or less: Kidney failureCHRISTUS [facility] BeevilleGlucose Ggqae6182-17-07 04:41:00* Test Item Value Reference Range Interpretation Comments Glucose Level (test code = UBB6666) 145 74-118 H [facility] BeevilleCalcium Nvdsf3546-33-17 04:41:00* Test Item Value Reference Range Interpretation Comments Calcium Level (test code = 66343-3) 10.6 8.4-10.2 H [facility] BeevilleTotal Lkgiqbgrc9492-88-98 04:41:00* Test Item Value Reference Range Interpretation Comments Total Bilirubin (test code = 1975-2) 0.7 0.2-1.2 [facility] BeevilleAspartate Amino Transf (AST/SGOT) 2018-10-15 04:41:00* Test Item Value Reference Range Interpretation Comments Aspartate Amino Transf (AST/SGOT) (test code = Aspartate Amino Transf (AST/SGOT)) 28 5-34 [facility] BeevilleAlanine Aminotransferase (ALT/SGPT) 2018-10-15 04:41:00* Test Item Value Reference Range Interpretation Comments Alanine Aminotransferase (ALT/SGPT) (test code = 1742-6) 26 0-55 [facility] BeevilleTotal Oxtzyri9277-63-63 04:41:00* Test Item Value Reference Range Interpretation Comments Total Protein (test code = 2885-2) 6.9 6.5-8.1 [facility] BeevilleAlbumin2019-04-23 04:41:00* Test Item Value Reference Range Interpretation Comments Albumin (test code = 1751-7) 3.8 3.5-5.0 [facility] BeevilleGlobulin2019-04-23 04:41:00* Test Item Value Reference Range Interpretation Comments Globulin (test code = 28968-5) 3.1 2.3-3.5 [facility] BeevilleAlbumin/Globulin Wntva8663-57-24 04:41:00 * Test Item Value Reference Range Interpretation Comments Albumin/Globulin Ratio (test code = 1759-0) 1.2 0.8-2.0 [facility] BeevilleAlkaline Jskmmvdunyx8960-83-54 04:41:00* Test Item Value Reference Range Interpretation Comments Alkaline Phosphatase (test code = 6768-6) 53 40-150 [facility] BeevilleCreatine Picowz1973-23-91 04:41:00* Test Item Value Reference Range Interpretation Comments Creatine Kinase (test code = 2157-6) 50 29-168 [facility] BeevilleProthrombin Zthj8099-94-33 04:40:00* Test Item Value Reference Range Interpretation Comments Prothrombin Time (test code = 5902-2) 18.6 11.9-14.5 H [facility] BeevilleProthromb Time International Ratio 2018-10-15 04:40:00* Test Item Value Reference Range Interpretation Comments Prothromb Time International Ratio (test code = 6301-6) 1.49 Oral Anticoagulant Therapy INR Values:1. Low Intensity Therapy 1.5 - 2.02 . Moderate Intensity Therapy 2.0 - 3.03. High Intensity Therapy(1) 2.5 - 3. 54. High Intensity Therapy(2) 3.0 - 4.05. Panic Value INR > 5.0 [facility] BeevilleActivated Partial Thromboplast Time 2018-10-15 04:40:00* Test Item Value Reference Range Interpretation Comments Activated Partial Thromboplast Time (test code = 71840-9) 32.0 23.8-35.5 [facility] BeevilleWhite Blood Nwxux8468-77-43 04:21:00* Test Item Value Reference Range Interpretation Comments White Blood Count (test code = 6690-2) 12.25 4.8-10.8 H [facility] [place]evilleRed Blood Xdndo9614-78-19 04:21:00* Test Item Value Reference Range Interpretation Comments Red Blood Count (test code = 789-8) 4.50 3.6-5.1 [facility] BeevilleHemoglobin2019-04-23 04:21:00* Test Item Value Reference Range Interpretation Comments Hemoglobin (test code = 05286-7) 13.6 12.0-16.0 [facility] BeevilleHematocrit2019-04-23 04:21:00* Test Item Value Reference Range Interpretation Comments Hematocrit (test code = 4544-3) 42.5 34.2-44.1 [facility] [place]evilleMean Corpuscular Lquuyk8678-76-15 04:21:00* Test Item Value Reference Range Interpretation Comments Mean Corpuscular Volume (test code = 787-2) 94.4 81-99 [facility] [place]Mean Corpuscular Rqliwgvtxe9622-84-43 04:21:00* Test Item Value Reference Range Interpretation Comments Mean Corpuscular Hemoglobin (test code = 785-6) 30.2 28-32 [facility] [place]evilleMean Corpuscular Hemoglobin Concent 2018-10-15 04:21:00* Test Item Value Reference Range Interpretation Comments Mean Corpuscular Hemoglobin Concent (test code = 786-4) 32.0 31-35 [facility] BeevilleRed Cell Distribution Mfyfx1872-40-36 04:21:00* Test Item Value Reference Range Interpretation Comments Red Cell Distribution Width (test code = 99655-1) 14.3 11.7 -14.4 [facility] BeevillePlatelet Jaqce0108-19-43 04:21:00* Test Item Value Reference Range Interpretation Comments Platelet Count (test code = 777-3) 216 140-360 [facility] BeevilleNeutrophils (%) (Auto)2018-10-15 04:21:00 * Test Item Value Reference Range Interpretation Comments Neutrophils (%) (Auto) (test code = 31781-8) 80.4 38.7-80.0 H [facility] BeevilleLymphocytes (%) (Auto)2018-10-15 04:21:00 * Test Item Value Reference Range Interpretation Comments Lymphocytes (%) (Auto) (test code = 736-9) 11.9 18.0-39.1 L [facility] BeevilleMonocytes (%) (Auto)2018-10-15 04:21:00* Test Item Value Reference Range Interpretation Comments Monocytes (%) (Auto) (test code = 5905-5) 6.3 4.4-11.3 [facility] [place]evilleEosinophils (%) (Auto)2018-10-15 04:21:00 * Test Item Value Reference Range Interpretation Comments Eosinophils (%) (Auto) (test code = 713-8) 0.7 0.0-6.0 [facility] BeevilleBasophils (%) (Auto)2018-10-15 04:21:00* Test Item Value Reference Range Interpretation Comments Basophils (%) (Auto) (test code = 706-2) 0.3 0.0-1.0 [facility] BeevilleIM GRANULOCYTES %2018-10-15 04:21:00* Test Item Value Reference Range Interpretation Comments IM GRANULOCYTES % (test code = IM GRANULOCYTES %) 0.4 0.0- 1.0 [facility] BeevilleNeutrophils # (Auto)2018-10-15 04:21:00* Test Item Value Reference Range Interpretation Comments Neutrophils # (Auto) (test code = 751-8) 9.9 2.1-6.9 H [facility] BeevilleLymphocytes # (Auto)2018-10-15 04:21:00* Test Item Value Reference Range Interpretation Comments Lymphocytes # (Auto) (test code = 49698-5) 1.5 1.0-3.2 [facility] BeevilleMonocytes # (Auto)2018-10-15 04:21:00* Test Item Value Reference Range Interpretation Comments Monocytes # (Auto) (test code = 742-7) 0.8 0.2-0.8 [facility] [place]evilleEosinophils # (Auto)2018-10-15 04:21:00* Test Item Value Reference Range Interpretation Comments Eosinophils # (Auto) (test code = 711-2) 0.1 0.0-0.4 [facility] [place]evilleBasophils # (Auto)2018-10-15 04:21:00* Test Item Value Reference Range Interpretation Comments Basophils # (Auto) (test code = 704-7) 0.0 0.0-0.1 [facility] BeevilleAbsolute Immature Granulocyte (auto 2018-10-15 04:21:00* Test Item Value Reference Range Interpretation Comments Absolute Immature Granulocyte (auto (desi t code = Absolute Immature Granulocyte (auto) 0.05 0-0.1 [facility] BeevilleFree Thyroxine Felng4993-08-95 07:29:00* Test Item Value Reference Range Interpretation Comments Free Thyroxine Index (test code = 03551-3) 3.0243 1.4-3.8 [facility] BeevilleThyroxine (T4)2018-06-01 07:29:00* Test Item Value Reference Range Interpretation Comments Thyroxine (T4) (test code = 3026-2) 9.89 4.5-10.9 Our current method for Total T4 is not recommended for use as the only marker fo r evaluating patients for thyroid disorders.[facility] BeevilleTriiodothyronine (T3) Rztxkc6967-04-96 07:29:00* Test Item Value Reference Range Interpretation Comments Triiodothyronine (T3) Uptake (test code = 3050-2) 30.58 22.5 -37.0 [facility] BeevilleThyroid Stimulating Hormone (TSH) 2018-06-01 07:29:00* Test Item Value Reference Range Interpretation Comments Thyroid Stimulating Hormone (TSH) (test code = 42042-4) 1.052 0.350-4.940 [facility] [place]evilleFr Thyroxine Ugxzj8664-16-67 07:29:00* Test Item Value Reference Range Interpretation Comments Free Thyroxine Index (test code = 09528-5) 3.0243 1.4-3.8 [facility] [place]evilleThyroxine (T4)2018-06-01 07:29:00* Test Item Value Reference Range Interpretation Comments Thyroxine (T4) (test code = 3026-2) 9.89 4.5-10.9 Our current method for Total T4 is not recommended for use as the only marker fo r evaluating patients for thyroid disorders.[facility] BeevilleTriiodothyronine (T3) Euicbg0006-30-60 07:29:00* Test Item Value Reference Range Interpretation Comments Triiodothyronine (T3) Uptake (test code = 3050-2) 30.58 22.5 -37.0 [facility] BeevilleThyroid Stimulating Hormone (TSH) 2018-06-01 07:29:00* Test Item Value Reference Range Interpretation Comments Thyroid Stimulating Hormone (TSH) (test code = 98908-5) 1.052 0.350-4.940 [facility] [place]evilleFr Thyroxine Bzmkj4913-64-11 07:29:00* Test Item Value Reference Range Interpretation Comments Free Thyroxine Index (test code = 38360-5) 3.0243 1.4-3.8 [facility] [place]evilleThyroxine (T4)2018-06-01 07:29:00* Test Item Value Reference Range Interpretation Comments Thyroxine (T4) (test code = 3026-2) 9.89 4.5-10.9 Our current method for Total T4 is not recommended for use as the only marker fo r evaluating patients for thyroid disorders.[facility] BeevilleTriiodothyronine (T3) Lgwxoe4953-12-60 07:29:00* Test Item Value Reference Range Interpretation Comments Triiodothyronine (T3) Uptake (test code = 3050-2) 30.58 22.5 -37.0 [facility] BeevilleThyroid Stimulating Hormone (TSH) 2018-06-01 07:29:00* Test Item Value Reference Range Interpretation Comments Thyroid Stimulating Hormone (TSH) (test code = 34199-5) 1.052 0.350-4.940 [facility] Americaodium Cjnll8417-46-36 06:51:00* Test Item Value Reference Range Interpretation Comments Sodium Level (test code = 2951-2) 143 136-145 [facility] BeevillePotassium Hzwmv7453-70-39 06:51:00* Test Item Value Reference Range Interpretation Comments Potassium Level (test code = 2823-3) 3.5 3.5-5.1 [facility] BeevilleChloride Fnexu2753-70-10 06:51:00* Test Item Value Reference Range Interpretation Comments Chloride Level (test code = 2075-0) 108 98-107 H [facility] BeevilleCarbon Dioxide Waavr9444-54-78 06:51:00* Test Item Value Reference Range Interpretation Comments Carbon Dioxide Level (test code = 2028-9) 25 22-29 [facility] BeevilleAnion Ypq6944-60-46 06:51:00* Test Item Value Reference Range Interpretation Comments Anion Gap (test code = 49919-2) 13.5 8-16 [facility] BeevilleBlood Urea Uysgypkz9536-91-80 06:51:00* Test Item Value Reference Range Interpretation Comments Blood Urea Nitrogen (test code = 3094-0) 24 7-26 [facility] BeevilleCreatinine2018-12-08 06:51:00* Test Item Value Reference Range Interpretation Comments Creatinine (test code = 2160-0) 1.57 0.57-1.11 H [facility] [place]evilleBUN/Creatinine Xiicm2507-39-84 06:51:00* Test Item Value Reference Range Interpretation Comments BUN/Creatinine Ratio (test code = 3097-3) 15 6-25 [facility] BeevilleEstimat Glomerular Filtration Rate 2018-06-01 06:51:00* Test Item Value Reference Range Interpretation Comments Estimat Glomerular Filtration Rate (test code = 411910237) 32 >60 L Ranges were taken from the National Kidney Disease Education Program and the [facility] Kidney Foundation literature.Reference ranges:60 or greater: Kjcmpa42-58 ( for 3 consecutive months): Chronic kidney disease 15 or less: Kidney failureCHRISTUS Spohn Hospital BeevilleGlucose Bruca1488-03-67 06:51:00* Test Item Value Reference Range Interpretation Comments Glucose Level (test code = YMC4395) 87 74-118 [facility] BeevilleCalcium Nwkfk2979-79-91 06:51:00* Test Item Value Reference Range Interpretation Comments Calcium Level (test code = 08674-1) 9.4 8.4-10.2 [facility] BeevillePhosphorus Gqthz7348-08-30 06:51:00* Test Item Value Reference Range Interpretation Comments Phosphorus Level (test code = IUW0801) 2.9 2.3-4.7 [facility] BeevilleMagnesium Qrkma2293-42-07 06:51:00* Test Item Value Reference Range Interpretation Comments Magnesium Level (test code = 61313-3) 2.3 1.3-2.1 H [facility] BeevillePhosphorus Gojhp8494-04-27 06:51:00* Test Item Value Reference Range Interpretation Comments Phosphorus Level (test code = XYI7000) 2.9 2.3-4.7 [facility] BeevilleMagnesium Enemp9757-35-84 06:51:00* Test Item Value Reference Range Interpretation Comments Magnesium Level (test code = 35717-7) 2.3 1.3-2.1 H [facility] BeevillePhosphorus Owvid5159-91-19 06:51:00* Test Item Value Reference Range Interpretation Comments Phosphorus Level (test code = JQS9259) 2.9 2.3-4.7 [facility] BeevilleMagnesium Ztvvi9228-28-74 06:51:00* Test Item Value Reference Range Interpretation Comments Magnesium Level (test code = 99907-2) 2.3 1.3-2.1 H [facility] BeevilleWhite Blood Ufzal2997-45-58 06:10:00* Test Item Value Reference Range Interpretation Comments White Blood Count (test code = 6690-2) 7.78 4.8-10.8 [facility] BeevilleRed Blood Chsva5586-78-85 06:10:00* Test Item Value Reference Range Interpretation Comments Red Blood Count (test code = 789-8) 4.34 3.6-5.1 [facility] BeevilleHemoglobin2018-12-08 06:10:00* Test Item Value Reference Range Interpretation Comments Hemoglobin (test code = 44161-1) 13.1 12.0-16.0 [facility] BeevilleHematocrit2018-12-08 06:10:00* Test Item Value Reference Range Interpretation Comments Hematocrit (test code = 4544-3) 39.6 34.2-44.1 [facility] BeevilleMean Corpuscular Owscat7182-24-59 06:10:00* Test Item Value Reference Range Interpretation Comments Mean Corpuscular Volume (test code = 787-2) 91.2 81-99 [facility] BeevilleMean Corpuscular Dpqhsdnxta9531-03-95 06:10:00* Test Item Value Reference Range Interpretation Comments Mean Corpuscular Hemoglobin (test code = 785-6) 30.2 28-32 [facility] [place]evilleMean Corpuscular Hemoglobin Concent 2018-06-01 06:10:00* Test Item Value Reference Range Interpretation Comments Mean Corpuscular Hemoglobin Concent (test code = 786-4) 33.1 31-35 [facility] BeevilleRed Cell Distribution Ggpae3297-82-72 06:10:00* Test Item Value Reference Range Interpretation Comments Red Cell Distribution Width (test code = 89058-8) 13.3 11.7 -14.4 [facility] BeevillePlatelet Hfaqo0075-64-05 06:10:00* Test Item Value Reference Range Interpretation Comments Platelet Count (test code = 777-3) 159 140-360 [facility] BeevilleNeutrophils (%) (Auto)2018-06-01 06:10:00 * Test Item Value Reference Range Interpretation Comments Neutrophils (%) (Auto) (test code = 86738-0) 59.3 38.7-80.0 [facility] BeevilleLymphocytes (%) (Auto)2018-06-01 06:10:00 * Test Item Value Reference Range Interpretation Comments Lymphocytes (%) (Auto) (test code = 736-9) 24.4 18.0-39.1 [facility] [place]evilleMonocytes (%) (Auto)2018-06-01 06:10:00* Test Item Value Reference Range Interpretation Comments Monocytes (%) (Auto) (test code = 5905-5) 11.7 4.4-11.3 H [facility] [place]evilleEosinophils (%) (Auto)2018-06-01 06:10:00 * Test Item Value Reference Range Interpretation Comments Eosinophils (%) (Auto) (test code = 713-8) 3.6 0.0-6.0 [facility] BeevilleBasophils (%) (Auto)2018-06-01 06:10:00* Test Item Value Reference Range Interpretation Comments Basophils (%) (Auto) (test code = 706-2) 0.5 0.0-1.0 [facility] BeevilleIM GRANULOCYTES %2018-06-01 06:10:00* Test Item Value Reference Range Interpretation Comments IM GRANULOCYTES % (test code = IM GRANULOCYTES %) 0.5 0.0- 1.0 [facility] BeevilleNeutrophils # (Auto)2018-06-01 06:10:00* Test Item Value Reference Range Interpretation Comments Neutrophils # (Auto) (test code = 751-8) 4.6 2.1-6.9 [facility] BeevilleLymphocytes # (Auto)2018-06-01 06:10:00* Test Item Value Reference Range Interpretation Comments Lymphocytes # (Auto) (test code = 16606-4) 1.9 1.0-3.2 [facility] BeevilleMonocytes # (Auto)2018-06-01 06:10:00* Test Item Value Reference Range Interpretation Comments Monocytes # (Auto) (test code = 742-7) 0.9 0.2-0.8 H [facility] BeevilleEosinophils # (Auto)2018-06-01 06:10:00* Test Item Value Reference Range Interpretation Comments Eosinophils # (Auto) (test code = 711-2) 0.3 0.0-0.4 [facility] BeevilleBasophils # (Auto)2018-06-01 06:10:00* Test Item Value Reference Range Interpretation Comments Basophils # (Auto) (test code = 704-7) 0.0 0.0-0.1 [facility] BeevilleAbsolute Immature Granulocyte (auto 2018-06-01 06:10:00* Test Item Value Reference Range Interpretation Comments Absolute Immature Granulocyte (auto (desi t code = Absolute Immature Granulocyte (auto) 0.04 0-0.1 [facility] BeevilleHemoglobin A1c Oovfbkh3497-42-29 17:47:00 * Test Item Value Reference Range Interpretation Comments Hemoglobin A1c Percent (test code = Hemoglobin A1c Percent) 5.0 4.0-7.0 [facility] BeevilleHemoglobin A1c Etdmeta1960-04-01 17:47:00 * Test Item Value Reference Range Interpretation Comments Hemoglobin A1c Percent (test code = Hemoglobin A1c Percent) 5.0 4.0-7.0 [facility] BeevilleHemoglobin A1c Veekvbk7538-06-66 17:47:00 * Test Item Value Reference Range Interpretation Comments Hemoglobin A1c Percent (test code = Hemoglobin A1c Percent) 5.0 4.0-7.0 [facility] BeevilleMRI BRAIN EC3975-42-18 10:54:00 [facility] [address] [place] [address] Patient Name: BRITTNEY DAMON MR #: [id number] : 1935 Age/Sex: 82/F Req #: [id number] Adm Physician: TAMIA SERRANO MD Ordered by: JOSÉ MIGUEL BANKS MD Report #: [id number] Location: [facility] Room/Bed: [place] [address] Procedure: 1207-00 03 MRI/MRI BRAIN WO Exam Date: Exam Time: REPORT STATUS: Signed MRI BRAIN WO HISTORY: Left-sided numbness COMPARISON: Head CT from earlier today, MRI o f the brain 03/23/2017 TECHNIQUE: Sagittal T2, axial T2, axial T1, axial T 2/FLAIR, axial gradient echo (or susceptibility weighted), coronal T2/FLAIR, a nd axial diffusion weighted MR images of the brain were obtained without contr ast. DISCUSSION: Scalp/bone marrow: Unremarkable. Brain sulci: Mildl y prominent. Ventricles: Mild compensatory dilatation. Extra-axial spaces: No masses or fluid collections. Parenchyma: Scattered T2/FLAIR hyperinten se foci throughout the supratentorial white matter and moira are likely chronic microvascular ischemic changes. 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 Otherwise, no mass, hemorrhage, or acut e vascular insults. Vessels: Normal flow voids in major arteries and veins. Sellar/Suprasellar region: No abnormalities. Craniocervical junction: No a bnormalities. Incidental findings: Both ocular lenses are thinned. IMPRES PAUL: 1. No acute intracranial abnormalities. 2. Moderate supratentori al/pontine chronic microvascular ischemic change. Mild generalized cerebral vo lume loss. 3. 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 4. Unchanged small pineal cyst. Signed by: Dr. Joe Dubon M.D. on 05/31/2018 10:59 AM Dictated By: JOE WELCH MPA, MD 1059 Transcri bed By: DIANNA on 05/31/18 1059 COPY TO: JOSÉ MIGUEL BANKS MD Urine MSB1723-72-40 09:19:00* Test Item Value Reference Range Interpretation Comments Urine WBC (test code = 5821-4) NONE 0-5 [facility] BeevilleUrine [id number] 09:19:00* Test Item Value Reference Range Interpretation Comments Urine RBC (test code = 75412-6) NONE 0-5 [facility] BeevilleUrine Jycykefv3596-78-50 09:19:00* Test Item Value Reference Range Interpretation Comments Urine Bacteria (test code = 00946-5) PRESENT NONE [facility] BeevilleUrine Epithelial Hypff3385-75-99 09:19:00 * Test Item Value Reference Range Interpretation Comments Urine Epithelial Cells (test code = 56789-6) RARE NONE [facility] BeevilleUrine Amorphous Dczlypjv4374-90-81 09:19:00* Test Item Value Reference Range Interpretation Comments Urine Amorphous Sediment (test code = 8246-1) FEW FEW [facility] BeevilleUrine Amorphous Aabqcmom9685-07-17 09:19:00* Test Item Value Reference Range Interpretation Comments Urine Amorphous Sediment (test code = 8246-1) FEW FEW [facility] BeevilleUrine Amorphous Nixovphi8033-16-26 09:19:00* Test Item Value Reference Range Interpretation Comments Urine Amorphous Sediment (test code = 8246-1) FEW FEW [facility] BeevilleUrine Soxtu5004-18-88 09:10:00* Test Item Value Reference Range Interpretation Comments Urine Color (test code = 5778-6) YELLOW YELLOW [facility] BeevilleUrine Lzwtmdd2737-80-35 09:10:00* Test Item Value Reference Range Interpretation Comments Urine Clarity (test code = 28291-9) SL CLOUDY CLEAR [facility] BeevilleUrine Specific Tphaqjn6497-39-75 09:10:00 * Test Item Value Reference Range Interpretation Comments Urine Specific [place] (test code = 5811-5) 1.020 1.010-1.02 5 [facility] BeevilleUrine eI4548-91-49 09:10:00* Test Item Value Reference Range Interpretation Comments Urine pH (test code = 12402-5) 7 5-7 [facility]evilleUrine Leukocyte Mrgtkhkm1077-92-43 09:10:00* Test Item Value Reference Range Interpretation Comments Urine Leukocyte Esterase (test code = 5799-2) NEGATIVE NEGATIVE [facility] BeevilleUrine Qzfurqg4479-10-43 09:10:00* Test Item Value Reference Range Interpretation Comments Urine Nitrite (test code = 82155-2) NEGATIVE NEGATIVE [facility] BeevilleUrine Atlwgjt5451-93-70 09:10:00* Test Item Value Reference Range Interpretation Comments Urine Protein (test code = 5804-0) TRACE NEGATIVE H [facility] BeevilleUrine Glucose (UA)2018-05-31 09:10:00* Test Item Value Reference Range Interpretation Comments Urine Glucose (UA) (test code = 2349-9) NEGATIVE NEGATIVE [facility] BeevilleUrine Rneslsi6206-56-12 09:10:00* Test Item Value Reference Range Interpretation Comments Urine Ketones (test code = 48173-7) NEGATIVE NEGATIVE [facility] BeevilleUrine Oojjoijvbqwh3289-39-71 09:10:00* Test Item Value Reference Range Interpretation Comments Urine Urobilinogen (test code = 50241-7) 0.2 0.2-1 [facility]evilleUrine Sdpbmbprr3740-53-19 09:10:00* Test Item Value Reference Range Interpretation Comments Urine Bilirubin (test code = 1978-6) NEGATIVE NEGATIVE [facility] BeevilleUrine Cjgul8941-52-85 09:10:00* Test Item Value Reference Range Interpretation Comments Urine Blood (test code = 29281-3) NEGATIVE NEGATIVE [facility] BeevilleCT BRAIN EF7678-55-16 08:32:00 [place] [address] Patient Name: BRITTNEY DAMON MR #: [id number] : 1935 Age/Sex: 82/F Req #: [id number] Adm Physician: Ordered by: JOSÉ MIGUEL BANKS MD Report #: [id number] Location: Room/Bed: Procedure: [id number] CT/CT BRAIN WO Exam Date: 05/31/18 Exam Time: 733 REPORT STATUS: Signed CT BRAIN WO HISTORY: Left-sided numbness COMPARISON: Head CT 02/01/2017, MRI of the brain 03/23/2017 TECHNIQUE: Noncontrast axial scans were obtained from skull base to the vertex. Coronal and sagittal reconstructions obtained from the axial data. One or more of the following dose reduction techniques were used: Automated exposure control, adjustment of the mA and/or kV according to patient size, and/or utilization of iterative reconstruction technique. DISCUSSION: Scalp/Skull: Unremarkable. Brain sulci: Appropriate for patie nt's age. Ventricles: Normal in size and configuration. No hydrocephalus. E xtra-axial spaces: No masses or fluid collections. Carotid siphon calcificati ons are present. Parenchyma: Mild periventricular white matter hypodensi ties are likely chronic microvascular ischemic changes. There is an old righ t thalamocapsular lacunar infarct. There is also an old left inferior cerebell ar cortical infarct. 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 Otherwise, no hemorrhag e, or large vascular territory acute infarct. Dural sinuses: No abnormal d ensities. Sellar/Suprasellar region: Intact. Skull base: Intact. Incidenta l findings: Both ocular lenses are thinned. IMPRESSION: 1. No acute i ntracranial abnormalities. 2. Mild supratentorial chronic microvascular ische diandra change. 3. 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 4. Unchanged small pineal cyst. Signed by: Dr. Joe Dubon M.D. on 05/31/2018 8:41 AM Dictated By: JOE WELCH MPA, MD 0841 Transcri bed By: DIANNA on 05/31/18 0841 COPY TO: JOSÉ MIGUEL BANKS MD Troponin [id number] 07:43:00* Test Item Value Reference Range Interpretation Comments Troponin I (test code = UKQ1796) < 0.001 0-0.300 [facility] Asblioivs2007-62-07 07:34:00* Test Item Value Reference Range Interpretation Comments Total Bilirubin (test code = 1975-2) 0.7 0.2-1.2 [facility] Amino Transf (AST/SGOT) 2018-05-31 07:34:00* Test Item Value Reference Range Interpretation Comments Aspartate Amino Transf (AST/SGOT) (test code = Aspartate Amino Transf (AST/SGOT)) 28 5-34 [facility] Aminotransferase (ALT/SGPT) 2018-05-31 07:34:00* Test Item Value Reference Range Interpretation Comments Alanine Aminotransferase (ALT/SGPT) (test code = 1742-6) 23 0-55 [facility] Ntjmyev1732-27-28 07:34:00* Test Item Value Reference Range Interpretation Comments Total Protein (test code = 2885-2) 7.1 6.5-8.1 [facility]2018-12-07 07:34:00* Test Item Value Reference Range Interpretation Comments Albumin (test code = 1751-7) 3.9 3.5-5.0 [facility]ulin2018-12-07 07:34:00* Test Item Value Reference Range Interpretation Comments Globulin (test code = 20313-4) 3.2 2.3-3.5 [facility]/Globulin Ybafv6396-33-72 07:34:00 * Test Item Value Reference Range Interpretation Comments Albumin/Globulin Ratio (test code = 1759-0) 1.2 0.8-2.0 [facility] Tnppdinbpkn3533-05-61 07:34:00* Test Item Value Reference Range Interpretation Comments Alkaline Phosphatase (test code = 6768-6) 61 40-150 [facility] Xmwxo4025-40-78 07:34:00* Test Item Value Reference Range Interpretation Comments Triglycerides Level (test code = 2571-8) 80 0-149 [facility] Sijxw5799-13-72 07:34:00* Test Item Value Reference Range Interpretation Comments Cholesterol Level (test code = 2093-3) 158 0-199 Less than 200 mg/dL Low Mrdr577 - 239 mg/dL Borderline Qcim544 m g/dl and greater High Risk [facility] Tljgsxiciuv2424-16-10 07:34:00* Test Item Value Reference Range Interpretation Comments LDL Cholesterol (test code = 2089-1) 76 60-130 [facility] Gljitsyivib6058-86-11 07:34:00* Test Item Value Reference Range Interpretation Comments HDL Cholesterol (test code = 2085-9) 66 40-60 H [facility]/HDL Iskys8934-52-10 07:34:00 * Test Item Value Reference Range Interpretation Comments Cholesterol/HDL Ratio (test code = 9830-1) 2.4 3.0-3.6 L [facility] Oovci7010-06-94 07:34:00* Test Item Value Reference Range Interpretation Comments Triglycerides Level (test code = 2571-8) 80 0-149 [facility] Nmhck6257-76-42 07:34:00* Test Item Value Reference Range Interpretation Comments Cholesterol Level (test code = 2093-3) 158 0-199 Less than 200 mg/dL Low Bfif355 - 239 mg/dL Borderline Ljta311 m g/dl and greater High Risk [facility] Xfcntzojxdc0382-10-76 07:34:00* Test Item Value Reference Range Interpretation Comments LDL Cholesterol (test code = 2089-1) 76 60-130 [facility] Cjdzbnhibfj3190-08-31 07:34:00* Test Item Value Reference Range Interpretation Comments HDL Cholesterol (test code = 2085-9) 66 40-60 H [facility]HDL Jedkb3548-45-38 07:34:00 * Test Item Value Reference Range Interpretation Comments Cholesterol/HDL Ratio (test code = 9830-1) 2.4 3.0-3.6 L [facility] Cceqm7264-33-94 07:34:00* Test Item Value Reference Range Interpretation Comments Triglycerides Level (test code = 2571-8) 80 0-149 [facility] Igiwg9186-00-08 07:34:00* Test Item Value Reference Range Interpretation Comments Cholesterol Level (test code = 2093-3) 158 0-199 Less than 200 mg/dL Low Cacz635 - 239 mg/dL Borderline Iyfj698 m g/dl and greater High Risk [facility] Inxujugnjel7871-60-59 07:34:00* Test Item Value Reference Range Interpretation Comments LDL Cholesterol (test code = 2089-1) 76 60-130 [facility] Kboytzkxken3597-73-00 07:34:00* Test Item Value Reference Range Interpretation Comments HDL Cholesterol (test code = 2085-9) 66 40-60 H [facility]/HDL Paitf0829-66-97 07:34:00 * Test Item Value Reference Range Interpretation Comments Cholesterol/HDL Ratio (test code = 9830-1) 2.4 3.0-3.6 L [facility]evilleProthrombin Kscu9878-88-91 07:26:00* Test Item Value Reference Range Interpretation Comments Prothrombin Time (test code = 5902-2) 11.7 11.9-14.5 L [facility]evilleProthromb Time International Ratio 2018-05-31 07:26:00* Test Item Value Reference Range Interpretation Comments Prothromb Time International Ratio (test code = 6301-6) 0.79 Oral Anticoagulant Therapy INR Values:1. Low Intensity Therapy 1.5 - 2.02 . Moderate Intensity Therapy 2.0 - 3.03. High Intensity Therapy(1) 2.5 - 3. 54. High Intensity Therapy(2) 3.0 - 4.05. Panic Value INR > 5.0 [facility]eville[facility] Partial Thromboplast Time 2018-05-31 07:26:00* Test Item Value Reference Range Interpretation Comments Activated Partial Thromboplast Time (test code = 98362-2) 24.1 23.8-35.5 [facility] [place] [address] Patient Name: BRITTNEY DAMON MR #: [id number] : 1935 Age/Sex: 81/F Req #: [id number] Adm Physician: TAMIA SERRANO MD Ordered by: TAMIA SERRANO MD Report #: [id number] Location: [facility]/SURG3 Room/Bed: [facility] Procedure: [id number] DX/CHEST 2 VIEWS Exam Date: 05/25/17 Exam Time: 0800 REPORT STATUS: Signed PROCEDURE: CHEST 2 VIEWS TECHNIQUE: Pressu re chest 2 view INDICATION: Cough, colitis and sepsis COMPARISON: None. FINDINGS: Cardiomegaly with central vascular congestion. No pleural effu sions. No focal airspace disease. Intact skeleton. Study limited by motion artifact and patient cooperation, particularly on the lateral view. C ONCLUSION: Cardiomegaly with central vascular congestion. No definitive eviden ce of pneumonia. Dictated by: Maggie Pearson M.D. on 06/2016 at 9:49 Electronically approved by: Maggie Pearson M.D. on 07/26/2016 at 9:49 Dictated By: MAGGIE PEARSON MD Electronical ly Signed By: MAGGIE PEARSON MD on 05/25/17948 Transcribed By: DAYTON on 05/25 COPY TO: TAMIA SERRANO MD CHEST SINGLE (PORTABLE) [place] [address] Patient Name: BRITTNEY DAMON MR #: [id number] : 1935 Age/Sex: 81/F Req #: [id number] Adm Physician: Ordered by: ISAAC DELA CRUZ MD Report #: [id number] Location: ER Room/Bed: Procedure: [id number] DX/CHEST SINGLE (PORTABLE) Exa m Date: 05/24/17 Exam Time: 0950 REPORT STATUS: Signed PROCEDURE: A single AP view of the chest. COMPARISON: Chest 2 views 02/05/2017. INDICATIONS: URINARY TRACT INFECTION FINDING S: Lines/tubes: None. Lungs: The lungs are well inflated and clear. Th ere is no evidence of pneumonia or pulmonary edema. Pleura: There is n o pleural effusion or pneumothorax. Heart and mediastinum: The heart and the mediastinum are unremarkable. Bones: No acute bony abnormality. Degen erative changes of the thoracic spine. IMPRESSION: No acute radi ographic abnormality. Dictated by: Corwin Dotson M.D. on 05/24/2017 at 10: 31 Electronically approved by: Corwin Dotson M.D. on 05/24/2017 at 10:31 Dictated By: CORWIN DOTSON MD 1031 Transcribed By: DAYTON on 05/24/17 1031 COPY TO: ISAAC DELA CRUZ MD MRI BRAIN WO [place] [id number] Patient Name: BRITTNEY DAMON MR #: [id number] : 1935 Age/Sex: 81/F Req #: [id number] Adm Physician: Ordered by: TAMIA SERRANO MD Report #: [id number] Location: MRI Room/Bed: Procedure: [id number] MRI/MRI BRAIN WO Exam Date: 03/23/17 Exam Time: 0830 REPORT STATUS: Signed Examination: MRI BRAIN WITHOUT CONTRAST History: Dizziness. Giddiness. Wea kness. Lethargy. Comparison studies: Multiple head CTs with the most recent pe rformed February 01, 2017 Technique: Sagittal T2; axial DWI, FLAIR, GRE or SWI, T1, Coronal FLAIR. Intravenous contrast: None Findings: Scal p: No abnormal signal. No masses. Bone marrow: Normal in signal intensity. Brain volume: Mild volume loss. Ventricles: No hydrocephalus. Extra- axial spaces: No abnormalities. Parenchyma: There are patchy and conflu ent areas of T2/FLAIR hyperintensity in the periventricular and subcortical an d pontine white matter, nonspecific. No masses, hemorrhage, or acute cortical based vascular insults. 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 A chronic lacunar infarct is a gain demonstrated in the right inferolateral thalamus. Suprasellar and se llar region: No abnormalities. Craniocervical junction: No abnormalities. The foramen magnum is patent. No Chiari malformations. Vessels: Normal flow-void s in the arteries and sinuses. Additional findings:At least mild degenerati ve spinal canal stenosis at C2-C3 and C3-C4 due to disc bulge and ligamentum f lavum thickening. IMPRESSION: 1. No new acute intracranial abnormalit y. No change from recent head CT performed February 01, 2017 when accounting for differences in technique. 2. Unchanged moderate chronic microvascular isc hemic change. 3. Unchanged mild volume loss. 4. 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 Signed by: Dr. Kasey Jones M.D. on 03/23 12:06 PM Dictated By: KASEY FERRELL MD Electronically S igned By: KASEY FERRELL MD on 03/23/17 120 Transcribed By: DIANNA on 03/23/176 COPY TO: TAMIA SERRANO MD MRA NECK WO [place] [address] Patient Name: BRITTNEY DAMON MR #: [id number] : 1935 Age/Sex: 81/F Req #: [id number] Adm Physician: Ordered by: TAMIA SERRANO MD Report #: [id number] Location: MRI Room/B ed: Procedure: [id number] MRI/MRA NECK WO Exam Date: 03/23/17 Exam Time: 0830 REPORT STATUS: Signed EXAMINATION: MR angiogram of the Neck without contrast CLINICAL HISTORY: Dizziness. Giddiness. Weakness. Lethargy. COMPARISON: None available TECHNIQUE: A 2D lexp-wx-wllhjj TOF angiographic sequences without was performed on the neck . The source images and sales service representative projections of the MIP images through 180 degrees of rotation of the neck were reviewed FINDINGS: If present, stenosis of the carotid bulbs is measured based on NASCET crit eria i.e area of maximum stenosis compared to the cervical ICA distal to the b ulb. Hypointensity in the bilateral carotid bulbs may be flow related artif act or narrowing from atherosclerotic disease with mild stenoses (less than 50 % stenosis). Right Carotid Artery: The common carotid, internal and ext ernal carotid arteries at the level of the neck are normal in caliber, and pat ent, no evidence of stenoses. Left Carotid Artery: The common carotid, i nternal and external carotid arteries at the level of the neck are normal in c aliber, and patent, no evidence of stenoses. Vertebral Arteries: Both are normal in morphology and caliber. Both are codominant. No significant sten osis is seen. IMPRESSION: Mild stenosis of the bilateral carotid bu lbs, otherwise no abnormalities. Signed by: Mayur Franco on 03/26/2017 11:54 AM Dictated By: BRONWYN CABALLERO MD Electronically Sign ed By: BRONWYN CABALLERO MD on 03/26/17 1152 Transcribed By: DIANNA on 03/26/17 1159 COPY TO: TAMIA SERRANO MD
== END 2020-05-18 08:28 | disposition home or self-care (01) ==
LOC: ER 06:52
DX: R20.2 Paresthesia of skin (principal); I10 Essential (primary) hypertension; F03.90 Unspecified dementia, unspecified severity, without behavioral disturbance, psychotic disturbance, mood disturbance, and anxiety; E78.5 Hyperlipidemia, unspecified; K21.9 Gastro-esophageal reflux disease without esophagitis; E03.9 Hypothyroidism, unspecified; Z86.73 Personal history of transient ischemic attack (TIA), and cerebral infarction without residual deficits
CPT/HCPCS: 36415; 70450; 80053; 82550; 82553; 83735; 84484; 85025; 85610; 85730; 93005; 99284

== ENCOUNTER 2020-10-29 03:10 | Emergency (ER) | payer MEDICARE ==
[~2020-10-29] VITALS: Ht 157.5 cm; Wt 68.0 kg
[2020-10-29 03:47] LABS: BASOPHILS # (AUTO) 0.1 (0.0-0.1); BASOPHILS % 0.5 % (0.0-1.0); EOSINOPHILS # (AUTO) 0.3 (0.0-0.4); EOSINOPHILS % 2.4 % (0.0-6.0); HEMOGLOBIN 15.1 g/dL (12.0-16.0); LYMPHOCYTES # (AUTO) 1.4 (1.0-3.2); LYMPHOCYTES % 13.4 % (18.0-39.1); MEAN CORPUSCULAR HEMOGLOBIN 30.3 pg (28-32); MEAN CORPUSCULAR HGB CONC 32.8 g/dL (31-35); MEAN CORPUSCULAR VOLUME 92.2 fL (81-99); MONOCYTES # (AUTO) 0.9 (0.2-0.8); MONOCYTES % 8.9 % (4.4-11.3); NEUTROPHILS # (AUTO) 7.7 (2.1-6.9); NEUTROPHILS % 74.4 % (38.7-80.0); PLATELET COUNT 194 x10e3/uL (140-360); RED BLOOD COUNT 4.99 x10e6/uL (3.6-5.1); RED CELL DISTRIBUTION WIDTH 13.4 % (11.7-14.4)
[2020-10-29 04:05] LABS: ALBUMIN 4.1 g/dL (3.5-5.0); ALBUMIN/GLOBULIN RATIO 1.2 (0.8-2.0); ANION GAP 16.2 mmol/L (8-16); CALCIUM 9.7 mg/dL (8.4-10.2); CREATININE, SERUM 1.75 mg/dL (0.57-1.11); POTASSIUM 4.2 mmol/L (3.5-5.1)
[2020-10-29 04:11] LABS: CREATINE KINASE MB 1.1 ng/mL (0-5.0)
[2020-10-29] MEDS ORDERED: HYDRALAZINE HCL 20 MG/ML VIAL IV ONE (04:15)
[2020-10-29 04:25] LABS: CLARITY,URINE CLEAR (CLEAR); COLOR,URINE YELLOW (YELLOW); KETONES,URINE NEGATIVE (NEGATIVE); LEUKOCYTE ESTERASE ,URINE NEGATIVE (NEGATIVE); NITRITE,URINE NEGATIVE (NEGATIVE); PROTEIN,URINE DIPSTICK NEGATIVE (NEGATIVE); URINE UROBILINOGEN 0.2 mg/dL (0.2 - 1)
[2020-10-29 04:35] LABS: BACTERIA,URINE RARE /HPF; EPITHELIAL CELLS,URINE FEW /LPF; RBC,URINE 0-5 /HPF (0-5); WBC,URINE (MAN) 0-5 /HPF (0-5)
[2020-10-29] MEDS ORDERED: HYDROCODONE/APAP 7.5MG-325MG 1 EA TAB PO PRN (05:15)
== END 2020-10-29 07:10 | disposition home or self-care (01) ==
LOC: ER 04:24
DX: M25.511 Pain in right shoulder (principal); F03.90 Unspecified dementia, unspecified severity, without behavioral disturbance, psychotic disturbance, mood disturbance, and anxiety; I10 Essential (primary) hypertension; E78.5 Hyperlipidemia, unspecified; E03.9 Hypothyroidism, unspecified; K21.9 Gastro-esophageal reflux disease without esophagitis; Z86.73 Personal history of transient ischemic attack (TIA), and cerebral infarction without residual deficits
CPT/HCPCS: 36415; 71045; 80053; 81001; 82550; 82553; 84484; 85025; 99284

== ENCOUNTER 2020-10-30 20:28 | Observation (INO) | payer MEDICARE ==
[~2020-10-30] VITALS: Ht 160 cm; Wt 68.0 kg
[2020-10-30 20:59] LABS: BASOPHILS % 0.2 % (0.0-1.0); EOSINOPHILS % 0.1 % (0.0-6.0); HEMATOCRIT 45.4 % (34.2-44.1); HEMOGLOBIN 15.1 g/dL (12.0-16.0); LYMPHOCYTES # (AUTO) 1.4 (1.0-3.2); LYMPHOCYTES % 8.2 % (18.0-39.1); MEAN CORPUSCULAR HEMOGLOBIN 30.4 pg (28-32); MEAN CORPUSCULAR HGB CONC 33.3 g/dL (31-35); MEAN CORPUSCULAR VOLUME 91.3 fL (81-99); MONOCYTES # (AUTO) 2.5 (0.2-0.8); MONOCYTES % 14.9 % (4.4-11.3); NEUTROPHILS # (AUTO) 12.8 (2.1-6.9); PLATELET COUNT 209 x10e3/uL (140-360); RED BLOOD COUNT 4.97 x10e6/uL (3.6-5.1); RED CELL DISTRIBUTION WIDTH 13.5 % (11.7-14.4)
[2020-10-30 21:07] LABS: CLARITY,URINE HAZY (CLEAR); COLOR,URINE YELLOW (YELLOW); KETONES,URINE NEGATIVE (NEGATIVE); LEUKOCYTE ESTERASE ,URINE NEGATIVE (NEGATIVE); NITRITE,URINE NEGATIVE (NEGATIVE); PROTEIN,URINE DIPSTICK TRACE (NEGATIVE); URINE UROBILINOGEN 0.2 mg/dL (0.2 - 1)
[2020-10-30 21:08] LABS: BACTERIA,URINE FEW /HPF; EPITHELIAL CELLS,URINE FEW /LPF; RBC,URINE 0-5 /HPF (0-5)
[2020-10-30 21:18] LABS: ALBUMIN 3.6 g/dL (3.5-5.0); ALBUMIN/GLOBULIN RATIO 0.9 (0.8-2.0); CALCIUM 9.9 mg/dL (8.4-10.2); CREATININE, SERUM 2.02 mg/dL (0.57-1.11)
[2020-10-30 21:27] LABS: CREATINE KINASE MB 0.8 ng/mL (0-5.0)
[2020-10-30] MEDS ORDERED: ONDANSETRON HCL INJ 2MG/ML 2ML 2 MG/ML VIAL IV PRN (22:15)
[2020-10-30] MEDS: SODIUM CHLORIDE 0.9% 1000ML 1,000 ML IV SCH (22:46)
[2020-10-30] MEDS: NITROFURANTOIN MACROCRYSTALS 100 MG CAP PO SCH (22:46)
[2020-10-30 22:58] VITALS: BP 167/70
[2020-10-31] VITALS (8 sets, daily range): BP systolic 144–167; BP diastolic 70–85
[2020-10-31] MEDS: SODIUM CHLORIDE 0.9% 1000ML 1,000 ML IV SCH ×2 (06:15→14:15)
[2020-10-31] MEDS ORDERED: ELIQUIS2.5 MG PO (06:44)
[2020-10-31] MEDS ORDERED: colestipol PO ×2 (06:44)
[2020-10-31 06:51] LABS: BASOPHILS % 0.2 % (0.0-1.0); EOSINOPHILS # (AUTO) 0.1 (0.0-0.4); EOSINOPHILS % 0.6 % (0.0-6.0); HEMATOCRIT 39.6 % (34.2-44.1); HEMOGLOBIN 13.3 g/dL (12.0-16.0); LYMPHOCYTES # (AUTO) 1.3 (1.0-3.2); MEAN CORPUSCULAR HEMOGLOBIN 30.2 pg (28-32); MEAN CORPUSCULAR HGB CONC 33.6 g/dL (31-35); MEAN CORPUSCULAR VOLUME 89.8 fL (81-99); MONOCYTES # (AUTO) 1.7 (0.2-0.8); MONOCYTES % 14.3 % (4.4-11.3); NEUTROPHILS # (AUTO) 8.9 (2.1-6.9); NEUTROPHILS % 73.5 % (38.7-80.0); PLATELET COUNT 174 x10e3/uL (140-360); RED BLOOD COUNT 4.41 x10e6/uL (3.6-5.1); RED CELL DISTRIBUTION WIDTH 13.4 % (11.7-14.4)
[2020-10-31 07:09] LABS: ALBUMIN 3.2 g/dL (3.5-5.0); ALBUMIN/GLOBULIN RATIO 0.9 (0.8-2.0); ANION GAP 14.8 mmol/L (8-16); CALCIUM 9.2 mg/dL (8.4-10.2); CREATININE, SERUM 1.75 mg/dL (0.57-1.11); POTASSIUM 3.8 mmol/L (3.5-5.1)
[2020-10-31 07:30] LABS: CREATINE KINASE MB 0.9 ng/mL (0-5.0)
[2020-10-31] MEDS: NITROFURANTOIN MACROCRYSTALS 100 MG CAP PO SCH ×2 (09:56→16:37)
[2020-10-31 15:47] LABS: CREATINE KINASE MB 0.9 ng/mL (0-5.0)
== END 2020-10-31 18:25 | disposition home or self-care (01) ==
LOC: ER 20:36 → ERHOLD 22:29 → MED/SURG 23:11
PROVIDERS: ADMIT Family Medicine; ATTEND Family Medicine
DX: N39.0 Urinary tract infection, site not specified (principal); R53.1 Weakness; I10 Essential (primary) hypertension; Z86.73 Personal history of transient ischemic attack (TIA), and cerebral infarction without residual deficits; E78.5 Hyperlipidemia, unspecified; E03.9 Hypothyroidism, unspecified; N17.9 Acute kidney failure, unspecified; Z88.1 Allergy status to other antibiotic agents; Z20.822 Contact with and (suspected) exposure to COVID-19
CPT/HCPCS: 36415 ×2; 70450; 71045; 80053 ×2; 81001; 82550 ×2; 82553 ×2; 84484 ×2; 85025 ×2; 93005; 99284; G0378 ×2; J7030 ×2; U0002

== ENCOUNTER → 2022-11-24 | Outpatient (CLI) | payer MEDICARE ==
[~2022-11-24] MED LIST changes: +ELIQUIS2.5 MG PO; +SODIUM CHLORIDE 0.9% 250ML 500 ML ONE; +colestipol PO
[2022-11-24 12:22] LABS: CREATININE, SERUM 1.49 mg/dL (0.57-1.11)
== END ==
LOC: CT 11:22
PROVIDERS: ATTEND Family Medicine
DX: J20.9 Acute bronchitis, unspecified (principal)
CPT/HCPCS: 36415; 71260; 82565; 84520; 96360; J7050